=== PATIENT | male | born 1955 | race Caucasian/White ===

== ENCOUNTER 2017-12-10 01:41 | Inpatient (IN) ==
[2017-12-10] MEDS ORDERED: Ondansetron 4 MG/2 ML VIAL IVP ONE (02:36)
[2017-12-10] MEDS ORDERED: Ondansetron 4 MG/2 ML VIAL ONE (02:38)
[2017-12-10 02:48] LABS: Basophils # 0.1 K/mcL (0.0-0.2); Basophils % 0.5 %; Eosinophils # 0.1 K/mcL (0.0-0.6); Eosinophils % 0.4 %; Hematocrit 52.1 % (37.5-50.1); Hemoglobin 17.1 g/dL (12.9-16.9); Immature Granulocytes % 0.5 % (0-4); Lymphocytes # 3.7 K/mcL (0.6-4.6); Lymphocytes % 18.6 %; Mean Corpuscular HGB Conc 32.8 g/dL (31.6-35.5); Mean Corpuscular Volume 85.4 fL (83.0-100.0); Mean Platelet Volume 9.4 fL (9.4-12.4); Monocytes # 1.5 K/mcL (0.0-1.3); Monocytes % 7.7 %; Neutrophils # 14.4 K/mcL (1.6-8.9); Platelet Count 396 K/mcL (140-400); Red Cell Distribution Width 14.8 % (11.5-14.5); Segmented Neutrophils % 72.3 %
[2017-12-10] MEDS ORDERED: Nitroglycerin 1 INCH/GM PACKET TP ONE (03:02)
[2017-12-10] MEDS ORDERED: Aspirin 325 MG TABLET PO ONE (03:03)
--- NOTE | 2017-12-10 03:03 | Emergency Department Note ---
Disposition Clinical Impression: ACS (acute coronary syndrome) Disposition: Still a Patient Referrals: Izabela Sam, HAND BOOKBINDER [Primary Care Provider] - General Adult HPI - General Chief complaint: ED Chest Pain Stated complaint: "CP/BASIL/N/V/Hx of Heart Attack" Time Seen by Provider: 12/10/17 02:19 - History of Present Illness Pain Scale: 7 - Related Data Home Medications Medication Instructions Recorded Confirmed Gabapentin [Neurontin] 300 mg PO TID 07/14/17 07/14/17 Glimepiride [Amaryl] 2 mg PO DAILY 07/14/17 07/14/17 Lisinopril [Zestril] 5 mg PO DAILY 07/14/17 07/14/17 Oxycodone HCl 15 mg PO 5XD 07/14/17 07/14/17 Sertraline [Zoloft] 100 mg PO BID 07/14/17 07/14/17 Tizanidine HCl 1 tab PO TID PRN 07/14/17 07/14/17 diazePAM [Valium] 5 mg PO BID 07/14/17 07/14/17 metFORMIN [Glucophage] 500 mg PO DAILY 07/14/17 07/14/17 Previous Rx's Medication Instructions Recorded Aspirin 81 mg PO DAILY #30 tab.chew 07/16/17 Atorvastatin [Lipitor] 40 mg PO HS #30 tablet 07/16/17 Metoprolol [Lopressor] 12.5 mg PO BID #60 tablet 07/16/17 Ticagrelor [Brilinta] 90 mg PO BID #60 tablet 07/16/17 Allergies Allergy/AdvReac Type Severity Reaction Status Date / Time No Known Allergies Allergy Verified 12/10/17 02:01 Past Medical History - Past Medical History Medical history: Reports: arthritis, diabetes, hyperlipidemia, kidney stones Surgical history: Reports: cholecystectomy Psychiatric history: Reports: depression - Social History Smoking Status: Current every day smoker Smokeless Tobacco Status: No Alcohol use: Reports: none Drug use: Reports: none Course - Reevaluation(s) Reevaluation #1: Attestation note I examined this patient and my medical decision-making was reviewed with the emergency medicine resident. I agree with the documented findings, disposition and treatment plan as described except to the extent set forth below. Patient seen with nurse practitioner Carmencita Correa, Please see a copy of her note for details of the H&P, ED evaluation, management and disposition. I have independently evaluated the patient and confirmed appropriate portions of the history and physical exam. Briefly: 62-year-old male by EMS for chest pain shortness of breath. History of KS and stents in the past. Patient appears uncomfortable but nontoxic. EKG nonspecific changes patient getting aspirin chest x-ray troponin other screening labs. Admission anticipated, disposition pending. Time: 03:02 Vital Signs Temperature 97.5 F L 12/10/17 01:59 Pulse Rate 86 12/10/17 01:59 Respiratory Rate 24 12/10/17 01:59 Blood Pressure 114/76 12/10/17 01:59 O2 Sat by Pulse Oximetry 96 12/10/17 01:59 Temperature 97.5 F L 12/10/17 01:59 Pulse Rate 86 12/10/17 01:59 Respiratory Rate 24 12/10/17 01:59 Blood Pressure 114/76 12/10/17 01:59 O2 Sat by Pulse Oximetry 96 12/10/17 01:59 Oxygen Delivery Oxygen Delivery Room Air Medical Decision Making - Lab Data Result diagrams: 12/10/17 02:30 Lab Results 12/10/17 Range/Units 02:30 WBC 19.9 H (4.3-11.1) K/mcL RBC 6.10 H (4.19-5.50) M/mcL Hgb 17.1 H (12.9-16.9) g/dL Hct 52.1 H (37.5-50.1) % MCV 85.4 (83.0-100.0) fL MCH 28.0 (28.0-33.3) pg MCHC 32.8 (31.6-35.5) g/dL RDW 14.8 H (11.5-14.5) % Plt Count 396 (140-400) K/mcL MPV 9.4 (9.4-12.4) fL Immature Gran % 0.5 (0-4) % Seg Neutrophils % 72.3 % Lymphocytes % 18.6 % Monocytes % 7.7 % Eosinophils % 0.4 % Basophils % 0.5 % Neutrophils # 14.4 H (1.6-8.9) K/mcL Lymphocytes # 3.7 (0.6-4.6) K/mcL Monocytes # 1.5 H (0.0-1.3) K/mcL Eosinophils # 0.1 (0.0-0.6) K/mcL Basophils # 0.1 (0.0-0.2) K/mcL
[2017-12-10 03:14] LABS: BUN/Creatinine Ratio 14 (6-26); Blood Urea Nitrogen 15 mg/dL (8-23); Calcium 10.1 mg/dL (8.6-10.3); Carbon Dioxide 23 mEq/L (23-29); Chloride 101 mEq/L (98-107); Glucose 129 mg/dL (70-105); Osmolality,Calculated 281 (280-300); Potassium 3.9 mEq/L (3.5-5.1); Sodium 134 mEq/L (136-145); eGFR For African Americans > 60 (> 60); eGFR For Non-African Americans > 60 (> 60)
[2017-12-10] MEDS ORDERED: Ipratropium/Albuterol Neb 3 ML IH ONE (03:19)
--- NOTE | 2017-12-10 03:19 | Emergency Department Note ---
Disposition Clinical Impression: ACS (acute coronary syndrome) Disposition: Admitted As Inpatient Condition: Undetermined Referrals: Izabela Sam FREEZER PERSON [Primary Care Provider] - Forms: ED Satisfaction Letter Chest Pain HPI - General Chief Complaint: ED Chest Pain Stated Complaint: "CP/BASIL/N/V/Hx of Heart Attack" Time Seen by Provider: 12/10/17 02:19 Source: patient Mode of arrival: EMS Limitations: no limitations Vital Signs Reviewed: Yes Nursing Notes Reviewed: Yes - History of Present Illness HPI Narrative: 62-year-old male with a history of cardiac stents, hypertension, diabetes, depression presents emergency department for shortness of breath and chest feeling heavy for greater than 24 hours. He states he can come sooner to seems taking care of his [id number]. This is accompanied with nausea and vomiting. He states he has been very diaphoretic off and on since this started 2. Patient was at rest when the chest pressure started, it has intermittently came and went back has been pretty steady at a 7/10 days. Patient states due to the vomiting he has been unable to take his medication today that includes Plavix and aspirin. He states he is no longer on Brilinta at all. Patient denies any other symptoms. Pt complaint: chest pain Onset (ago): day(s) Duration: intermittent, gradually worsening Onset: during rest Pain Location: substernal, left chest Severity scale (1-10): 7 Quality: heaviness Pain Radiation: none Improves with: nothing Worsens with: exertion Associated symptoms: Reports: nausea, vomiting, diaphoresis, dyspnea, other ( "Feels like my last heart attack") Treatments prior to arrival chest pain: none - Related Data Home Medications Medication Instructions Recorded Confirmed Gabapentin [Neurontin] 300 mg PO TID 07/14/17 07/14/17 Glimepiride [Amaryl] 2 mg PO DAILY 07/14/17 07/14/17 Lisinopril [Zestril] 5 mg PO DAILY 07/14/17 07/14/17 Oxycodone HCl 15 mg PO 5XD 07/14/17 07/14/17 Sertraline [Zoloft] 100 mg PO BID 07/14/17 07/14/17 Tizanidine HCl 1 tab PO TID PRN 07/14/17 07/14/17 diazePAM [Valium] 5 mg PO BID 07/14/17 07/14/17 metFORMIN [Glucophage] 500 mg PO DAILY 07/14/17 07/14/17 Previous Rx's Medication Instructions Recorded Aspirin 81 mg PO DAILY #30 tab.chew 07/16/17 Atorvastatin [Lipitor] 40 mg PO HS #30 tablet 07/16/17 Metoprolol [Lopressor] 12.5 mg PO BID #60 tablet 07/16/17 Ticagrelor [Brilinta] 90 mg PO BID #60 tablet 07/16/17 Allergies Allergy/AdvReac Type Severity Reaction Status Date / Time No Known Allergies Allergy Verified 12/10/17 02:01 All systems ED: reviewed and negative except as stated. Review of Systems: As Per HPI Chest Pain PMH - Past Medical History Medical history: Reports: arthritis, diabetes, hyperlipidemia, kidney stones Surgical history: Reports: cholecystectomy Psychiatric history: Reports: depression - Social History Smoking Status: Current every day smoker Alcohol use: Reports: none Drug use: Reports: none Physical Exam - General Limitations: no limitations General appearance: alert, in no apparent distress - Head Head exam: atraumatic, normocephalic, normal inspection - ENT ENT exam: mucous membranes moist - Neck Neck exam: Present: normal inspection, full ROM, trachea midline - Chest Chest inspection: Present: normal inspection, symmetric chest wall rise - Respiratory Respiratory exam: Present: wheezes, prolonged expiratory phase - Cardiovascular Cardiovascular exam: Present: regular rate, normal rhythm, normal heart sounds - Abdominal Exam Abdominal exam: Present: soft, Non-Tender. Absent: tenderness, distention, guarding, rebound, rigidity - Extremities Exam Extremities exam: Present: normal inspection, full ROM. Absent: tenderness, pedal edema - Expanded Lower Extremity Exam Gait: observed and normal - Back Exam Back exam: Present: normal inspection, full ROM. Absent: tenderness - Neurological Exam Neurological exam: Present: alert, oriented X3 - Psychiatric Psychiatric exam: Present: normal affect, normal mood - Skin Skin exam: Present: warm, dry, intact, normal color Course Course Narrative: Obese male, noted to be mildly hypoxic only 93% on room air. O2 applied also talks raises to 98% on 2 L. Lungs noted with wheezes throughout, speaks in full sentences but does appear mildly distressed. Heart rate regular rhythm, EKG reveals sinus rhythm occasional ventricle premature complexes, ventricular rate 91, intervals within normal limits, QTC 413 ms. No sign of ST elevation or ST depression. Labs reveal leukocytosis and 19.9, revealed patient's previous labs read show chronic leukocytosis however 19.9 is little higher than normal. Troponin 7.99. CXR negative for Pulmonary processes. Initiated heparin drip, nitroglycerin for chest pain and pressure, spoke with the cardiology Dr. Monzon who agrees with heparin drip and admission to hospitalist. Pt had already been given ASA, Plavix. He is no longer on [place] today, he did not take his daily medications due to the vomiting earlier. Duoneb for wheezing. Continue on 2L NC Plan is admission to the hospital under hospitalist services. - Reevaluation(s) Reevaluation #1: Spoke with hospitalist who is agreeable to take patient for admission. Time: 04:33 Vital Signs Temperature 97.5 F L 12/10/17 01:59 Pulse Rate 86 12/10/17 01:59 Respiratory Rate 24 12/10/17 01:59 Blood Pressure 114/76 12/10/17 01:59 O2 Sat by Pulse Oximetry 96 12/10/17 01:59 Temperature 97.5 F L 12/10/17 01:59 Pulse Rate 103 12/10/17 04:25 Respiratory Rate 20 12/10/17 04:25 Blood Pressure 144/95 12/10/17 04:25 O2 Sat by Pulse Oximetry 97 12/10/17 04:25 Oxygen Delivery Oxygen Delivery Nasal Cannula Chest Pain - Differential Diagnosis Likely: stable angina, unstable angina pectoris, chest pain. Unlikely: pneumothorax, atypical chest pain, st elevation myocardial infraction, costalchondritis - Medical Records Medical records reviewed: Yes I reviewed the patient's medical records. - Lab Data Lab results reviewed: Yes I reviewed the patient's lab results. Result diagrams: 12/10/17 02:30 12/10/17 02:30 Lab Results 12/10/17 12/10/17 12/10/17 Range/Units 02:30 02:30 02:30 WBC 19.9 H (4.3-11.1) K/mcL RBC 6.10 H (4.19-5.50) M/mcL Hgb 17.1 H (12.9-16.9) g/dL Hct 52.1 H (37.5-50.1) % MCV 85.4 (83.0-100.0) fL MCH 28.0 (28.0-33.3) pg MCHC 32.8 (31.6-35.5) g/dL RDW 14.8 H (11.5-14.5) % Plt Count 396 (140-400) K/mcL MPV 9.4 (9.4-12.4) fL Immature Gran % 0.5 (0-4) % Seg Neutrophils % 72.3 % Lymphocytes % 18.6 % Monocytes % 7.7 % Eosinophils % 0.4 % Basophils % 0.5 % Neutrophils # 14.4 H (1.6-8.9) K/mcL Lymphocytes # 3.7 (0.6-4.6) K/mcL Monocytes # 1.5 H (0.0-1.3) K/mcL Eosinophils # 0.1 (0.0-0.6) K/mcL Basophils # 0.1 (0.0-0.2) K/mcL PT 10.9 (9.4-12.1) Seconds INR 1.0 APTT 33.0 (26.0-36.0) Seconds Sodium 134 L (136-145) mEq/L Potassium 3.9 (3.5-5.1) mEq/L Chloride 101 (98-107) mEq/L Carbon Dioxide 23 (23-29) mEq/L BUN 15 (8-23) mg/dL Creatinine 1.11 (0.70-1.30) mg/dL Est GFR ( Amer) > 60 (> 60) Est GFR (Non-Af Amer) > 60 (> 60) BUN/Creatinine Ratio 14 (6-26) Glucose 129 H (70-105) mg/dL Calculated Osmolality 281 (280-300) Calcium 10.1 (8.6-10.3) mg/dL Troponin I 7.99 H* (< 0.04) ng/mL - Radiology Data Radiology results reviewed: Yes I reviewed the patient's radiology results. Chest X-Ray 12/10/17 02:02 IMPRESSION: Negative portable chest. D/ / Caleb Palm MD / Caleb Palm MD Interpreting Provider: Caleb Palm MD - EKG Data EKG attestation: Yes I reviewed and interpreted this EKG. Heart Score - Score History: Highly Suspicious EKG: Normal Age: 45-65 Risk Factors: Equal/Greater than 3 risk factor or history of atherosclerotic disease Troponin: Greater than 3x normal limit HEART Score Total: 7
[2017-12-10 03:20] LABS: Troponin I 7.99 ng/mL (< 0.04)
[2017-12-10] MEDS ORDERED: *HR* Heparin 5,000 UNIT/ML VIAL IVP ONE (03:22)
[2017-12-10] MEDS ORDERED: *HR* Heparin 5,000 UNIT/ML VIAL IVP PRN ×2 (03:22)
[2017-12-10] MEDS ORDERED: *HR* Morphine Immed Rel 30 MG TABLET PO ONE (03:27)
[2017-12-10] MEDS ORDERED: Heparin 25,000 UNIT/500 ML D5W 25,000 UNIT/500 ML BAG IVC SCH (03:30)
[2017-12-10 03:58] LABS: Prothrombin Time 10.9 Seconds (9.4-12.1)
[2017-12-10] MEDS ORDERED: *HR* Promethazine 25 MG/ML VIAL IVP ONE (04:39)
--- NOTE | 2017-12-10 06:11 | Internal Med History&Physical ---
Date of Encounter: 12/10/17 Time of Encounter: 18:06 Internal Medicine - H&P: HPI Admitted From: Emergency Dept Plans for Post Hospital Care: Home History of present illness: Mr. Burch is a 62 year old male NSTEMI, CAD, Morbid obesity, current smoker, and DM-II. Pt states he developed chest pain, N/V yesterday. CP was rated 7/10 and radiated to his left shoulder blade. Pt states pain was associated with diaphoresis and SOB. In ED WBC 19.9, hgb 17.1, hct 52.1 PT 109, INR 1.0. Troponin 7.99. Na 134, BUN 23, 15, Cr 1.11. Glucose 129. EKG showed showed non-specific ST/T wave abnormalities. CXR negative Past Med Surg Social Fam HX - Past Medical History Medical history: arthritis, diabetes, hyperlipidemia, kidney stones, myocardial infarction Additional medical history: knee replacement Psychiatric history: depression - Past Surgical History Surgical History: cholecystectomy Additional surgical history: heart stent x1 (2018), left knee replacement - Social History Smoking Status: Current every day smoker Smokeless Tobacco Status: No Alcohol use: none Drug use: none - Family History Father Hx Family Cancer: Yes Hx Family Endocrine Disorder: Yes (kidney replacement) Sister Hx Family Endocrine Disorder: Yes (DM) Internal Medicine - H&P: Meds Gabapentin [Neurontin] 300 mg PO TID 07/14/17 [History] Glimepiride [Amaryl] 2 mg PO DAILY 07/14/17 [History] Lisinopril [Zestril] 5 mg PO DAILY 07/14/17 [History] Oxycodone HCl 15 mg PO 5XD 07/14/17 [History] Sertraline [Zoloft] 100 mg PO BID 07/14/17 [History] Tizanidine HCl 1 tab PO TID PRN 07/14/17 [History] diazePAM [Valium] 5 mg PO BID 07/14/17 [History] metFORMIN [Glucophage] 500 mg PO DAILY 07/14/17 [History] Aspirin 81 mg PO DAILY #30 tab.chew 07/16/17 [Rx] Atorvastatin [Lipitor] 40 mg PO HS #30 tablet 07/16/17 [Rx] Metoprolol [Lopressor] 12.5 mg PO BID #60 tablet 07/16/17 [Rx] Ticagrelor [Brilinta] 90 mg PO BID #60 tablet 07/16/17 [Rx] 3 Allergy/AdvReac Type Severity Reaction Status Date / Time No Known Allergies Allergy Verified 12/10/17 02:01 All Systems PM: A 10-system review of systems was performed and is negative for pertinent findings except as documented above in the HPI. - Constitutional Vitals: Temp Pulse Resp BP Pulse Ox 97.8 F 99 18 144/95 97 12/10/17 05:20 12/10/17 05:20 12/10/17 05:20 12/10/17 05:20 12/10/17 05:28 General appearance: Present: A&O X 3, morbidly obese, no acute distress - Head Head exam: Present: atraumatic, normocephalic - Eye Eye exam: Present: PERRL, conjuntiva pink, sclera anicteric Pupils: Present: PERRL - Neck Neck exam general surgery: Present: supple, trachea midline. Absent: lymphadenopathy - Respiratory Respiratory exam: Present: decreased breath sounds, CTAB. Absent: accessory muscle use, rales, rhonchi, wheezes - Cardiovascular Cardiovascular exam: Present: RRR, +S1, +S2. Absent: diastolic murmur, gallop, rubs, systolic murmur - GI/Abdominal GI/Abdominal exam: Present: normal bowel sounds, soft, no peritoneal signs. Absent: distended, tenderness - Extremities Exam Extremities exam: Present: pedal edema, warm, radial pulses palpable and symmetrical. Absent: calf tenderness, cyanotic - Neurological Exam Neurological exam: Present: CN II-XII intact, oriented X3, no focal deficits. Absent: pronater drift, facial droop, speech deficit - Skin Skin exam: Present: dry, intact Internal Med - H&P Results - Labs CBC & Chem 7: 12/10/17 02:30 12/10/17 02:30 - Assessment and plan (1) NSTEMI (non-ST elevated myocardial infarction) Current Visit: No Status: Acute Assessment and plan: Troponin 7.99. Will consul cardiology to see. Started on heparin in ED and will continue for now. Will monitor on tele. Will Resume ASA and Plavix. 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 Will Resume Metoprolol 12.5 mg BID. Consulting cardiology and called to Dr. Monzon. (2) Vomiting and diarrhea Current Visit: No Status: Acute Assessment and plan: Zofran prn (3) Diabetes mellitus type 2 in obese Current Visit: No Status: Acute Assessment and plan: Will keep NPO for till pt evaluated by cardiology. Will place on Q 6 hour glucose monitoring. (4) Leukocytosis Current Visit: Yes Status: Acute Assessment and plan: Neutrophil 14.4, afebrile. Pt does reprts cough with white to yllow sputum. Denies urinary urgency or dysuria but does report urinary frequency. Will check urinary analysis with reflex to culture. Will check CBC in am. CXR neg. Will check blood cultures. Will check procalcitonin level. Qualifiers: Qualified Code(s): D72.829 - Elevated white blood cell count, unspecified - Time Spent With Patient Total time spent is greater than 50% in coordination of care (as documented) at patient's floor/unit and/or counseling patient: 25 - 35 minutes
[2017-12-10] MEDS ORDERED: Acetaminophen 325 MG TABLET PO PRN (06:26)
[2017-12-10] MEDS ORDERED: Nitroglycerin 0.4 MG TAB.SUBL SL PRN (06:26)
[2017-12-10] MEDS ORDERED: Ondansetron 4 MG/2 ML VIAL IVP PRN (06:26)
[2017-12-10] MEDS ORDERED: Naloxone 0.4 MG/ML INJ IVP PRN (06:26)
[2017-12-10] MEDS ORDERED: Dextrose Gel 15 GM/37.5 ML TUBE PO PRN ×2 (06:30)
[2017-12-10] MEDS ORDERED: D5% in Water 1,000 ML IVC PRN (06:30)
[2017-12-10] MEDS ORDERED: *HR* Dextrose 50 % in Water (Syg) 50 ML SYRINGE IVP PRN (06:30)
[2017-12-10 07:33] LABS: Estimated Average Glucose 163 mg/dl; Hemoglobin A1C 7.3 %
[2017-12-10] MEDS ORDERED: *HR* OxyCODONE Immed Rel 15 MG TABLET PO ONE (08:57)
[2017-12-10] MEDS: Aspirin 81 MG TAB.CHEW PO SCH (09:12)
[2017-12-10] MEDS ORDERED: Heparin 1,000 UNITS/500 mL 500 ML ONE (09:23)
[2017-12-10] MEDS ORDERED: *HR* Heparin 10,000 UNIT/10 ML VIAL ONE (09:23)
[2017-12-10] MEDS ORDERED: 0.9 % Sodium Chloride 1,000 ML ONE ×2 (09:23→09:41)
[2017-12-10] MEDS ORDERED: Nitroglycerin 1,000 MCG/10 ML VIAL IV ONE (09:24)
[2017-12-10] MEDS ORDERED: ISOVUE-370 200 ML INFUS..BTL IV ONE (09:24)
--- NOTE | 2017-12-10 09:31 | Cardiology Consult Note ---
<Benjamin Ely R - Last Filed: 12/10/17 09:24> Date of Encounter: 12/10/17 Time of Encounter: 09:24 Assessment and Plan (1) NSTEMI (non-ST elevated myocardial infarction) Current Visit: Yes Status: Acute Initial troponin 7.99. On heparin gtt. EKG SR, RBBB, left fascicular block. Similar to prior. Per HPI, chest pain started 2 days ago after mowing, radiation to left arm same as prior anginal equivalent. Chest pain currently 02/04. LHC 06/2017 with ADELA to mPDA. Reports compliance with DAPT--ASA and Plavix. Was switched from Brilinta to Plavix in August due to dyspnea. TTE 06/2017 EF 55%. Recheck TTE. Recommend [facility] for NSTEMI with active chest pain. R/B/A discussed. Pt agrees to proceed. LHC today. Was loaded with 300mg Plavix on presentation. Continue ASA, Plavix, BB. Historically has not tolerated statins due to myalgias but currently on med list. (2) CAD (coronary artery disease) Current Visit: Yes Status: Acute Hx of PCI to mPDA 06/2017. NSTEMI as above. ASA, Plavix, Statin, BB. Qualifiers: Coronary Disease-Associated Artery/Lesion type: [place] artery [place] vs. transplanted heart: [place] heart Associated angina: with unstable angina Qualified Code(s): I25.110 - Atherosclerotic heart disease of [place] coronary artery with unstable angina pectoris (3) Leukocytosis Current Visit: Yes Status: Acute WBC 19.9. Reports n/v after onset of CP. Denies fever or chills. Historically, has always had leukocytosis on admissions. Could be reactionary from NSTEMI. CXR negative. Management per primary team. Qualifiers: Leukocytosis type: unspecified Qualified Code(s): D72.829 - Elevated white blood cell count, unspecified Discussion w patient/family: The assessment and plan as outlined above was discussed with the patient and/or family members who expressed understanding and agreement. All questions were answered. Thank you for involving us in the care of your patient. Please call with any questions. I will discuss all the above with Dr. Danielson and make changes as necessary. History of Present Illness Consult date: 12/10/17 Consult reason: NSTEMI Chief complaint: chest pain History of present illness: Mr. Burch is a 62 year old male with PMH of CAD s/p MT and PCI 06/2017, HTN, HLD , DMII, tobacco abuse that presented to ED for onset of chest pain 2 days ago after mowing his yard. He reports he finished with the riding mower and developed midsternal chest pain described as pressure with radiation to his left shoulder with associated dyspnea, n/v. Reports symptoms feel exactly the same to prior MT in June. Reports dyspnea for months. Current chest pain . Troponin 7.99. Cardiology consulted for further recs. Pt reports compliance with DAPT (ASA and Plavix). LHC 07/14/17: Severe 1 vessel CAD. EF 65%. Successful ADELA to mPDA. TTE 07/14/17: LVEF 55%, mild LVDD. Past Med Surg Social Fam HX - Past Medical History Medical history: arthritis, coronary artery disease, diabetes, hyperlipidemia, kidney stones, myocardial infarction Additional medical history: knee replacement Psychiatric history: depression - Past Surgical History Surgical History: angioplasty/stent, cholecystectomy Additional surgical history: heart stent x1 (2018), left knee replacement - Social History Smoking Status: Current every day smoker Smokeless Tobacco Status: No Alcohol use: none Drug use: none - Family History Father Hx Family Cancer: Yes Hx Family Endocrine Disorder: Yes (kidney replacement) Sister Hx Family Endocrine Disorder: Yes (DM) Medications and Allergies Glimepiride [Amaryl] 2 mg PO DAILY 07/14/17 [History] Lisinopril [Zestril] 5 mg PO DAILY 07/14/17 [History] Oxycodone HCl 15 mg PO 5XD 07/14/17 [History] Sertraline [Zoloft] 200 mg PO DAILY 07/14/17 [History] Tizanidine HCl 1 tab PO TID PRN 07/14/17 [History] diazePAM [Valium] 5 mg PO BID 07/14/17 [History] metFORMIN [Glucophage] 500 mg PO DAILY 07/14/17 [History] Aspirin 81 mg PO DAILY #30 tab.chew 07/16/17 [Rx] Clopidogrel [Plavix] 75 mg PO DAILY 12/10/17 [History] DULoxetine [Cymbalta] 20 mg PO DAILY 12/10/17 [History] 3 Allergy/AdvReac Type Severity Reaction Status Date / Time No Known Allergies Allergy Verified 12/10/17 02:01 All Systems Review: The remainder of the systems were reviewed and are negative - Cardiovascular Cardiovascular: as per HPI, chest pain at rest, chest pain with exertion, diaphoresis, dyspnea at rest, dyspnea on exertion, radiating jaw, neck or arm pain - Respiratory Respiratory: dyspnea - Gastrointestinal Gastrointestinal: nausea Physical Examination Vital Signs, Last 4 Hours Temp Pulse Resp BP Pulse Ox 12/10/17 06:49 98.7 F 99 18 129/88 95 Vital Signs Temp Pulse Resp BP Pulse Ox 12/10/17 06:49 98.7 F 99 18 129/88 95 12/10/17 05:28 97 12/10/17 05:20 97.8 F 99 18 144/95 95 12/10/17 05:01 97.5 F L 103 20 144/95 97 12/10/17 04:25 103 20 144/95 97 12/10/17 03:43 101 20 148/94 98 12/10/17 03:36 19 97 12/10/17 03:04 97 18 130/87 97 12/10/17 01:59 97.5 F L 86 24 114/76 96 Intake and Output 12/09/17 12/10/17 12/10/17 23:59 07:59 15:59 Intake Total 0 / 0 0 / 0 Output Total 0 / 0 450 / 450 Balance 0 / 0 -450 / -450 Intake: Oral 0 / 0 0 / 0 Output: Urine 0 / 0 450 / 450 Other: Meal npo Weight 140.9 kg Blood Glucose* 171 Patient Weight 12/10/17 23:59 Weight 140.9 kg General: Conversant, Other (mild distress) HEENT: Atraumatic, Normocephaly, Mucus Membranes Moist Neck: Normal carotid pulses Cardiac: Reg Rate and Rhythm, Normal S1 and S2, No Murmur Lungs: Other (mild wheezes) Neuro: Alert and responsive, No focal deficits noted Abdomen: Soft, Non-Tender Skin: No rashes noted on visualized skin Musculoskeletal: No Chest Wall Tenderness Extremities: No Clubbing, No Cyanosis, No Edema, Normal Pulses Results 12/10/17 02:30 12/10/17 02:30 Short CBC 12/10/17 Range/Units 02:30 WBC 19.9 H (4.3-11.1) K/mcL Hgb 17.1 H (12.9-16.9) g/dL Hct 52.1 H (37.5-50.1) % Plt Count 396 (140-400) K/mcL Neutrophils # 14.4 H (1.6-8.9) K/mcL BMP 12/10/17 Range/Units 02:30 Sodium 134 L (136-145) mEq/L Potassium 3.9 (3.5-5.1) mEq/L Chloride 101 (98-107) mEq/L Carbon Dioxide 23 (23-29) mEq/L BUN 15 (8-23) mg/dL Creatinine 1.11 (0.70-1.30) mg/dL Glucose 129 H (70-105) mg/dL Calcium 10.1 (8.6-10.3) mg/dL Cardiac Enzymes 12/10/17 Range/Units 02:30 Troponin I 7.99 H* (< 0.04) ng/mL Impressions Chest X-Ray 12/10/17 02:02 IMPRESSION: Negative portable chest. D/ / Caleb Palm MD / Caleb Palm MD Interpreting Provider: Caleb Palm MD Active Medications Acetaminophen (Tylenol) 650 mg PO Q6HR PRN PRN Reason: Mild Pain/Fever Stop: 06/11/18 06:27 Aspirin (Aspirin) 81 mg PO DAILY EDGAR Stop: 06/11/18 09:01 Last Admin: 12/10/17 09:12 Dose: 81 mg Atorvastatin Calcium (Lipitor) 40 mg PO HS EDGAR Stop: 06/11/18 21:01 Dextrose/Water (Dextrose 50% (Syg)) 25 ml IVP AD PRN PRN Reason: Hypoglycemia Stop: 06/11/18 06:31 Glucagon (Glucagen) 1 mg IM ONCE PRN PRN Reason: Hypoglycemia Stop: 06/11/18 06:31 Glucose (Gluctose) 15 gm PO ONCE PRN PRN Reason: Hypoglycemia Stop: 06/11/18 06:31 Glucose (Gluctose) 30 gm PO ONCE PRN PRN Reason: Hypoglycemia Stop: 06/11/18 06:31 Heparin Sodium (Porcine) (Heparin) 4,000 unit IVP Q6HR PRN PRN Reason: SEE COMMENTS Stop: 06/11/18 03:23 Heparin Sodium (Porcine) (Heparin) 2,000 unit IVP Q6H PRN PRN Reason: SEE COMMENTS Stop: 06/11/18 03:23 Heparin Sodium/Dextrose (Heparin 25,000 Unit/500 Ml D5w) 25,000 unit in 500 mls @ 19.726 mls/hr IVC .Q24H EDGAR; 7.2 UNIT/KG/HR PRN Reason: Protocol Stop: 06/11/18 03:31 Last Admin: 12/10/17 03:36 Dose: 7.2 unit/kg/hr, 19.726 mls/hr Dextrose (Dextrose 5%) 1,000 mls @ 100 mls/hr IVC .Q10H PRN PRN Reason: HYPOGLYCEMIA Stop: 06/11/18 06:31 Insulin Human Lispro (Humalog) 0 units SQ Q6HR EDGAR PRN Reason: Protocol Stop: 06/11/18 12:01 Lisinopril (Zestril) 5 mg PO DAILY EDGAR PRN Reason: Protocol Stop: 06/11/18 09:01 Last Admin: 12/10/17 09:20 Dose: Not Given Metoprolol Tartrate (Lopressor) 12.5 mg PO BID [facility] Stop: 06/11/18 09:01 Last Admin: 12/10/17 09:12 Dose: 12.5 mg Naloxone HCl (Narcan) 0.4 mg IVP Q2MIN PRN PRN Reason: SEE COMMENTS Stop: 06/11/18 06:27 Nitroglycerin (Nitroglycerin) 0.4 mg SL Q5MIN PRN PRN Reason: Chest Pain Stop: 06/11/18 06:27 Last Admin: 12/10/17 09:11 Dose: 0.4 mg Ondansetron HCl (Zofran) 4 mg IVP Q6HR PRN; Protocol PRN Reason: Nausea Stop: 06/11/18 06:27 Last Admin: 12/10/17 09:11 Dose: 4 mg Sertraline HCl (Zoloft) 100 mg PO BID [facility] Stop: 06/11/18 09:01 Last Admin: 12/10/17 09:20 Dose: Not Given - Imaging and Cardiology Echo: report reviewed Cardiac cath: report reviewed - EKG Interpretation EKG results cardiology: personally reviewed Consult Discharge Plan - Plan Referrals: Izabela Sam, [employer] [Primary Care Provider] - <Sarthak Danielson Ortiz - Last Filed: 12/10/17 13:04> Date of Encounter: 12/10/17 - Attending Attestation I have personally performed a face to face evaluation on this patient. I have reviewed and agree with the care plan. History and Exam by me shows: CC: Chest pain Pt continues to experience substernal chest pain, /10, decresases tro 3/10 with sublingual ntg, associated with mild nausea and shortness of breath, has been waxing and waning over last 6 hours. Pt reports chest pain like he experienced with his last heart attack. ROS: reviewed PHM: Reviewed PE: Pt seen and examined, agree with documentation IMP: 1. NSTEMI; continued chest pain, recommend emergent LHC, risks and benefits discussed, pt elects to proceed 2. CAD; Severe single vessel CAD, post PCI with ADELA right [employer] 06/2017 3. Tobacco abuse against medical advice Assessment and Plan Discussion w patient/family: The assessment and plan as outlined above was discussed with the patient and/or family members who expressed understanding and agreement. All questions were answered. Thank you for involving us in the care of your patient. Please call with any questions. History of Present Illness History of present illness: Mr. Burch is a 62 year old male All Systems Review: The remainder of the systems were reviewed and are negative Physical Examination Vital Signs, Last 4 Hours Pulse Resp BP Pulse Ox 12/10/17 12:00 75 16 126/91 98 Results 12/10/17 02:30 12/10/17 02:30 Lab Results 12/10/17 12/10/17 09:13 09:13 APTT 37.8 H Troponin I 8.72 H*
--- NOTE | 2017-12-10 09:41 | Internal Med Progress Note ---
Date of Encounter: 12/10/17 Time of Encounter: 09:39 - Assessment and plan (1) NSTEMI (non-ST elevated myocardial infarction) Current Visit: Yes Status: Acute Assessment and plan: Admitting troponin 7.99 With active chest pain s/p [facility] 06/2017 with stents, on DAPT at home ECHO is pending On heparin drip, continue till [facility] and cardio eval Continue ASA, Plavix, Lisinopril, Not on BB High risk diagnosis due to emergent need for invasive testing and use of heparin drip (2) CAD (coronary artery disease) Current Visit: Yes Status: Chronic Assessment and plan: See NSTEMI Qualifiers: Coronary Disease-Associated Artery/Lesion type: [place] artery [place] vs. transplanted heart: [place] heart Associated angina: with unstable angina Qualified Code(s): I25.110 - Atherosclerotic heart disease of [place] coronary artery with unstable angina pectoris (3) Leukocytosis Current Visit: Yes Status: Acute Assessment and plan: possibly as an acute reaction to NSTEMI Afebrile, no evidence of focal infection Continue to monitor Qualifiers: Leukocytosis type: unspecified Qualified Code(s): D72.829 - Elevated white blood cell count, unspecified (4) Diabetes mellitus type 2 in obese Current Visit: Yes Status: Chronic Assessment and plan: Continue sliding scale insulin FS ACHS ADA diet (5) Morbid obesity with BMI of 40.0-44.9, adult Current Visit: Yes Status: Chronic Assessment and plan: lifestyle modification - Time Spent With Patient Total time spent is greater than 50% in coordination of care (as documented) at patient's floor/unit and/or counseling patient: - Subjective Interval history: Seen and examined at the bedside He has a PMH of DM, CAD, Obesity, Tobacco abuse Admitted for NSTEMI, having active chest pain with trop of 7.99 Cardiology is following and patient is being planned for cath - Constitutional Vitals: Temp Pulse Resp BP Pulse Ox 98.7 F 99 18 129/88 95 12/10/17 06:49 12/10/17 06:49 12/10/17 06:49 12/10/17 06:49 12/10/17 06:49 General appearance: Present: A&O X 3, morbidly obese, no acute distress - Head Head exam: Present: atraumatic, normocephalic - Eye Eye exam: Present: PERRL, conjuntiva pink, sclera anicteric Pupils: Present: PERRL - Neck Neck exam general surgery: Present: supple, trachea midline. Absent: lymphadenopathy - Respiratory Respiratory exam: Present: CTAB. Absent: accessory muscle use, rales, rhonchi, wheezes - Cardiovascular Cardiovascular exam: Present: RRR, +S1, +S2. Absent: diastolic murmur, gallop, rubs, systolic murmur - GI/Abdominal GI/Abdominal exam: Present: normal bowel sounds, soft, no peritoneal signs. Absent: distended, tenderness - Extremities Exam Extremities exam: Present: warm, radial pulses palpable and symmetrical. Absent : calf tenderness, cyanotic, pedal edema - Neurological Exam Neurological exam: Present: alert, CN II-XII intact, oriented X3, no focal deficits. Absent: pronater drift, facial droop, speech deficit - Skin Skin exam: Present: dry, intact Internal Medicine: Result - Labs CBC & Chem 7: 12/10/17 02:30 12/10/17 02:30 - ABG Interpretation ABG results: PT/INR, D-dimer PT 10.9 Seconds (9.4-12.1) 12/10/17 02:30 Consult Discharge Plan - Plan Referrals: Izabela Sam, [employer] [Primary Care Provider] -
[2017-12-10] MEDS ORDERED: *HR* Midazolam HCl 2 MG/2 ML VIAL ONE ×2 (09:50→10:03)
--- NOTE | 2017-12-10 09:52 | Pre-Sedation Evaluation ---
Pre-sedation evaluation - Pre-sedation checklist Date of procedure: 12/10/17 Procedure: Heart cath Recent Vitals: Last Vital Signs Temp 98.7 F 12/10/17 06:49 Pulse 99 12/10/17 06:49 Resp 18 12/10/17 06:49 BP 129/88 12/10/17 06:49 Pulse Ox 95 12/10/17 06:49 H&P (including ROS) documented in medical record: Yes Previous reaction to sedatives/anesthetics: No Dietary Status: NPO after Midnight Airway Assessment: Patient can open mouth completely, TMJ function normal Dentition: No loose teeth or bridges Possible difficult airway: No ASA Classification *see protocol: CLASS III-Severe systemic disease Plan of Care: Pt appropriate candidate for procedure/moderate/conscious sedation , Risks/benefits of procedure/sedation discussed w/ patient/family, If not NPO; Risk of intake outweiged by necessity to perform procedure
--- NOTE | 2017-12-10 11:27 | Invasive Diagnostic Lab Proc ---
Name: Jackson Burch Date of Study: 12/10/2017 Date: 1955 Ht: 72.8in Medical Record#: [id number] Age: 62 Wt: 311.29lb Gender: Male BSA: 2.59 Order #: [id number] BMI: 41.3 Physicians Procedure Physician: Sarthak Danielson DO Referring MD: Izabela Sam CNP Referring MD: Staff Name Position Time In Lakeisha Gomez RN Monitor 09:54 AM Gayle Johnson RT (R) Scrub 09:54 AM Jacey Leone RN Packerhead Machine Operator 09:54 AM Enedina Walter RN Packerhead Machine Operator 09:54 AM Indications Indication Non-Stemi Procedures Performed Procedure L HRT ARTERY/VENTRICLE ANGIO Pre-Procedure Checklist Informed consent is complete signed and on chart. H&P is on chart. ID band is on and ID verified with patient. Patient NPO for procedure The procedure was described for the patient and questions were answered. Blood Pressure: 129/88 ECG is on chart. Rhythm: Sinus Tachycardia w/BBB Plan of Care Patient will tolerate the procedure without complications. Adequate level of comfort will be maintained. Hemodynamics will remain stable Patient will recover from procedure without complications. Respiratory function will be maintained. Cardiac rhythm will remain stable. Patient temperature will be maintained. Patient and/or family have verbalized understanding of the procedure. Patient Education Chief Complaint/Reason for Test: Cardiac Cath Developmental Category: Adult (18-64 years) Developmentally Appropriate for Age: Yes Learning Barriers: None Education Needs: Procedure Education Method: Verbal Information Taught: Cardiac Cath Educational Evaluation: Able to repeat information Intravenous Access Time IV Size Location DC'd Fluid/Drip Rate Units RN 09:51 AM Started with 20g 1 1/4" Lt Antecubital 0.9NaCl 25 ml/hr Jacey Leone RN Allergies NKDA Vital Signs Time BP (mmHg) HR (bpm) O2 Sat. RR (bpm) LOC 09:52 AM 129 / 88 99 95 % 18 5 = Fully awake and oriented or at pre-proc level 09:56 AM / % 5 = Fully awake and oriented or at pre-proc level 09:56 AM / % 4 = Oriented but drowsy 10:11 AM / % 5 = Fully awake and oriented or at pre-proc level 09:51 AM 123 / 93 103 94 % 09:56 AM 108 / 81 99 93 % 10:01 AM 123 / 88 96 93 % 10:06 AM 115 / 80 99 96 % 10:11 AM 123 / 82 80 94 % 10:16 AM 128 / 77 87 93 % 10:21 AM 127 / 75 96 93 % 10:40 AM 130 / 80 96 94 % 12 5 = Fully awake and oriented or at pre-proc level 10:45 AM 116 / 78 98 96 % 13 5 = Fully awake and oriented or at pre-proc level 10:50 AM 114 / 80 96 96 % 12 5 = Fully awake and oriented or at pre-proc level 10:55 AM 128 / 82 98 96 % 15 5 = Fully awake and oriented or at pre-proc level 11:00 AM 136 / 85 96 98 % 16 5 = Fully awake and oriented or at pre-proc level 11:05 AM 128 / 108 81 95 % 19 5 = Fully awake and oriented or at pre-proc level Procedural Medications Time Medication Dose Units Method Given By 09:56 AM Oxygen 2 L/min nasal cannula Jacey Leone RN 09:56 AM Versed 2 mg Intravenous Jacey Leone RN 10:03 AM Lidocaine 2% 10 ml Subcutaneous Sarthak Danielson DO 10:04 AM Versed 1 mg Intravenous Jacey Leone RN 10:07 AM Lidocaine 2% 5 ml Subcutaneous Sarthak Danielson DO 10:18 AM Nitroglycerin 100 mcg Intracoronary Sarthak Danielson DO ASA Classification: CLASS III- Severe systemic disease (i.e. prior AMI, diabetes with vascular complications, morbid obesity) Yarely Score Preprocedure Postprocedure Activity 2- Moves 4 extremities sustained head lift Activity 2- Moves 4 extremities sustained head lift Circulation 2- SBP +/= 20 points of pre-anesthetic level Circulation 2- SBP +/= 20 points of pre-anesthetic level Consciousness 2- Awake and alert oriented x 3 Consciousness 2- Awake and alert oriented x 3 O2 Saturation 2- Able to maintain O2 satruation of 92% on room air O2 Saturation 2- Able to maintain O2 satruation of 92% on room air Respiratory 2- Able to deep breathe and cough well Respiratory 2- Able to deep breathe and cough well Total Score 10 Total Score 10 Contrast Agent: Isovue Diagnostic Contrast: 100 ml Total Contrast: 100 ml Fluoro Dose: 814 mGy Activated Clotting Time Time Seconds to Clot 10:15 AM 90 Procedure Log Time Note Enter By 09:45 AM Pt arrived to lab support tech 2 at 09:45 scoates 09:46 AM Physician arrived 09:46 scoates 09:46 AM Horacio and salina completed scoates 09:47 AM Sign in performed according to hospital policy. scoates 09:47 AM Procedure start 09:47 scoates 09:49 AM Recorded ECG: HR=94 Condition=Condition 1 09:50 AM CathStat 09:50 AM Vitals capture started with the following parameters, Patient=Adult, Interval=5 min, Initial Erpdmmjo=256 mmHg, Deflation Rate=5 mmHg, Cuff placed on Right Arm 09:51 AM SZ=504 bpm, EPGN=376/93 mmhg, SpO2=94.0 %, Comment=ST w/BBB 09:54 AM Lakeisha Gomez RN Position: Monitor Time in: 09:54 scoates 09:54 AM Gayle Johnson RT (R) Position: Scrub Time in: 09:54 scoates 09:54 AM Jacey Leone RN Position: Packerhead Machine Operator Time in: 09:54 scoates 09:54 AM Enedina Walter RN Position: Packerhead Machine Operator Time in: 09:54 scoates 09:54 AM Patient charges- Angio tray pack, Navilyst 3mm J, Pulse Oximetry and ACIST tubing and transducer scoates 09:54 AM Case Delayed No scoates 09:56 AM HR=99 bpm, LKZK=594/81 mmhg, SpO2=93.0 %, Comment=ST alexandra/MEGHANA 09:56 AM Time: 09:56 Oxygen on at 2 L/min per nasal cannula by Jacey Leone RN scoates 09:56 AM Time: 09:56 Versed 2 mg Intravenous Given by Jacey Leone RN scoates 09:56 AM Time: 09:56 Patient comfortable and pain free: Yes scoates 09:56 AM Time: 09:56LOC: 5 = Fully awake and oriented or at pre-proc level scoates 09:56 AM Was having chest pain on the floor. Nitro sublingual given pre procedure. Nitro topical removed upon arrival to lab and heparin shut off prior to arrival scoates 09:59 AM Clinical Presentation: Non-STEMI scoates 10:01 AM HR=96 bpm, OTRB=436/88 mmhg, SpO2=93.0 %, Comment=ST w/BBB 10:02 AM ASA Class CLASS III- Severe systemic disease (i.e. prior AMI, diabetes with vascular complications, morbid obesity) scoates 10:02 AM Time out performed according to hospital policy scoates 10:04 AM Time: 10:03 10 ml Lidocaine 2% to right groin Subcutaneous Given by Sarthak Danielson, DO scoates 10:04 AM Time: 10:04 Versed 1 mg Intravenous Given by Jacey Leone RN scoates 10:06 AM HR=99 bpm, PFMR=142/80 mmhg, SpO2=96.0 %, Comment=ST w/BBB 10:06 AM Micro-Introducer Kit utilized for sheath placement scoates 10:07 AM Time: 10:07 5 ml Lidocaine 2% to right groin Subcutaneous Given by Sarthak Danielson, DO scoates 10:08 AM Access obtained by percutaneous puncture. 6Fr 10cm Terumo Independence sheath placed in right Femoral artery. [id number] scoates 10:08 AM 6Fr FL 4 catheter inserted over the wire [facility] scoates 10:09 AM LCA angiography performed in multiple views. scoates 10:10 AM Recorded Pressure: Ao, HR=89, Condition=Condition 1 (Aorta) Ao 95/61/77 10:11 AM HR=80 bpm, AXNZ=389/82 mmhg, SpO2=94.0 %, Comment= w/MEGHANA 10:11 AM Catheter removed scoates 10:11 AM PCI Status Urgent scoates 10:11 AM PCI Indication: PCI for high risk Non-STEMI or unstable angina scoates 10:11 AM 6Fr JR 4 Runway guide catheter was used to cannulate the PCI vessel successfully. reused? No scoates 10:11 AM Inflation device was opened. scoates 10:11 AM Time: 09:56 Patient comfortable and pain free: Yes scoates 10:11 AM Time: 09:56LOC: 4 = Oriented but drowsy scoates 10:13 AM Recorded Pressure: LV, HR=95, Condition=Condition 1 (Left Ventricle) LV 92/-3/3 10:13 AM Recorded Pressure: LV, Ao, HR=92, Condition=Condition 1 (Left Ventricle) LV 107/-9/7, (Aorta) Ao 106/53/80 10:13 AM Catheter selectively placed in left ventricle scoates 10:14 AM Bolus angiogram of left Ventricle complete: hand injected scoates 10:14 AM Recorded Pressure: Ao, HR=91, Condition=Condition 1 (Aorta) Ao 105/68/84 10:15 AM At 10:15 the ACT was 90 seconds. scoates 10:15 AM Recorded Pressure: Ao, HR=96, Condition=Condition 1 (Aorta) Ao 108/68/85 10:16 AM HR=87 bpm, FYPN=473/77 mmhg, SpO2=93.0 %, Comment=ST w/BBB 10:16 AM RCA angiography performed in multiple views. scoates 10:16 AM Guide catheter removed intact. scoates 10:17 AM 6Fr JL4 Runway guide catheter was used to cannulate the PCI vessel successfully. reused? No scoates 10:18 AM LCA angiography performed in multiple views. scoates 10:18 AM Time: 10:18 Nitroglycerin 100 mcg Intracoronary Given by Sarthak Danielson DO scoates 10:20 AM Recorded Pressure: Ao, HR=93, Condition=Condition 1 (Aorta) Ao 91/61/72 10:20 AM Coronary Dominance: right scoates 10:20 AM Lesion found in Mid RCA. Pre Stenosis: 30 scoates 10:21 AM HR=96 bpm, PUQH=568/75 mmhg, SpO2=93.0 %, Comment=ST w/BBB 10:21 AM Bolus angiogram of right Femoral complete: hand injected scoates 10:25 AM Catheter removed scoates 10:26 AM Procedure completed at 10:26 scoates 10:26 AM Did you address CECE flow and Dominance? Yes scoates 10:26 AM Time: 10:11LOC: 5 = Fully awake and oriented or at pre-proc level scoates 10:27 AM Time: 10:11 Patient comfortable and pain free: Yes scoates 10:27 AM Sign out completed: Radiation Dose 814.45 mGy Fluoro Time: 2.3 Isovue 370 - 200ml contrast 100 ml given by Sarthak Danielson DO. Complications: NoneCardiac Rehab Consult needed: NoConfirmed administered medications: Yes scoates 10:27 AM Isovue 370 - 200ml,1 Bottle(s) used. scoates 10:27 AM Sheath left in place to be pulled on floor/holding areaV+Pad scoates 10:27 AM Estimated Blood Loss: minimal scoates 10:27 AM Post ECG Sinus Tachycardia w/BBB scoates 10:28 AM Post Blood Pressure 127/75 scoates 10:28 AM 10:28 Post Pulses Bilateral DP & PT 2+ scoates 10:28 AM Information taught Cardiac Cath and V+ Pad scoates 10:28 AM Education needs Procedure, Plan of Care, and Safe & Effective Use of Medications scoates 10:28 AM Learning barriers :None scoates 10:28 AM Education Methods Verbal scoates 10:28 AM Education evaluation Able to repeat information scoates 10:28 AM Site status No bleeding/hematoma - Rt Groin as reported by Gayle Johnson RT (R) at 10:28 scoates 10:28 AM Opsite applied scoates 10:28 AM Report given to Nancy SAMPSON Pt taken to Holding room Room #3. 10:28 scoates 10:29 AM Plavix, Effient or Brilinta given No scoates 10:29 AM Delay to floor No scoates 10:29 AM Patient out of room: 10:29 scoates 10:29 AM Family not available scoates 10:29 AM Complications: None scoates 10:29 AM Fluoro Time: 2.3 scoates 10:29 AM Isovue 370 - 200ml contrast [address] Danielson. scoates 10:29 AM Radiation Dose 814.45 mGy scoates 10:31 AM Lesion found in Mid LAD. Pre Stenosis: 20 scoates 10:31 AM Lesion found in 1st Diagonal. Pre Stenosis: 30 scoates 10:31 AM Lesion found in Mid Circumflex. Pre Stenosis: 20 scoates 10:32 AM Mid/Distal Left Anterior Descending Coronary Artery and diagonal branches with 30% stenosis. scoates 10:32 AM Circumflex, Obtuse Marginal, Left Posterior Descending, and Left Posterolateral Coronary Arteries with 20 % stenosis. scoates 10:32 AM Right Coronary, Right Posterior Descending Arteries with Right Posterolateral and Acute Marginal branches with 30 % stenosis. scoates 10:50 AM Arterial sheath pulled using manual compression and V+ Pad for 15 minutes by Shira Acosta RN 11:05 AM 11:05 Post Pulses Bilateral DP & PT 2+ sandra 11:06 AM Site status No bleeding/hematoma - Rt Groin as reported by Shira Acosta RN at 11:12 sandra 11:06 AM Opsite applied sandra 11:15 AM Report given to Belén SAMPSON [facility] E [facility] Com[facility] Complication None Hemodynamics Pressures Site Systolic/A Wave Diastolic/V Wave Mean AO 95 61 77 LV 92 -3 3 LV 107 -9 7 AO 106 53 80 AO 105 68 84 AO 108 68 85 AO 91 61 72 Post Procedure Information Blood Pressure: 127/75 mmHg Rhythm: Sinus Tachycardia w/BBB Post procedural instructions were given Site Checks Time Location Status Staff Sheath In? Note 10:28 AM Rt Groin No bleeding/hematoma Gayle Johnson RT (R) Yes 11:12 AM Rt Groin No bleeding/hematoma Shira Acosta RN Yes 10:40 AM Rt Groin No bleeding/ No Hematoma Nancy Gonzalez RN Yes 10:45 AM Rt Groin No bleeding/ No Hematoma Nancy Gonzalez RN Yes 10:50 AM Rt Groin No bleeding/ No Hematoma Nancy Gonzalez RN Yes 11:05 AM Rt Groin No bleeding/ No Hematoma Lakeisha Gomez RN Pulses Time Site Pre-Procedure Post-Procedure Note 12/10/2017 9:51:00 AM Bilateral DP & PT 2+ 10:28:00 AM Bilateral DP & PT 2+ 11:05:00 AM Bilateral DP & PT 2+ Updated by Lakeisha Gomez RN on 12/10/2017 11:18:44 AM electronically signed on 12/10/2017 11:19:39 AM with status of Final
[2017-12-10] MEDS ORDERED: Insulin LISPRO 300 UNITS/3 ML VIAL SQ SCH ×2 (12:00→21:00)
[2017-12-10] MEDS: Isosorbide MONOnitrate (24 HR) 30 MG TAB.ER.24H PO SCH (13:22)
[2017-12-10] MEDS: 0.9 % Sodium Chloride 1,000 ML IVC SCH (13:22)
[2017-12-10] MEDS: Insulin LISPRO 300 UNITS/3 ML VIAL SQ SCH ×2 (13:25→17:41)
[2017-12-10] MEDS ORDERED: tiZANidine 4 MG TABLET PO PRN (14:57)
[2017-12-10 15:11] LABS: Bilirubin,Urine Negative (Negative); Blood,Urine Negative (Negative); Clarity,Urine Clear (Clear); Color,Urine Yellow (Yellow); Glucose,Urine (UA) Normal (Normal); Ketones,Urine Negative (Negative); Leukocyte Esterase,Urine Negative (Negative); Nitrite,Urine Negative (Negative); PH,Urine 5.5 pH Units (5.0-8.0); Protein,Urine Trace mg/dL (Neg-Trace); Specific Gravity,Urine > 1.030 (1.010-1.025); Urobilinogen,Urine Normal (Normal)
[2017-12-10] MEDS: *HR* OxyCODONE Immed Rel 15 MG TABLET PO PRN ×2 (15:11→20:39)
[2017-12-10 15:15] LABS: Bacteria,Urine None Seen per hpf (None-Few); Hyaline Casts,Urine Few per lpf (None-Few); RBC,Urine 0-3 per hpf (0-3); Squamous Epithelial Cell,Urine Many per lpf (None-Few); WBC,Urine 0-3 per hpf (0-3)
[2017-12-10] MEDS: diazePAM 5 MG TABLET PO SCH (20:39)
[2017-12-10] MEDS ORDERED: Perflutren Lipid Microsphere 1.3 ML in 0.9 % Sodium Chloride 8.7 ML IVP ONE (22:30)
[2017-12-11] MEDS: 0.9 % Sodium Chloride 1,000 ML IVC SCH (00:38)
[2017-12-11] MEDS: *HR* OxyCODONE Immed Rel 15 MG TABLET PO PRN ×2 (05:15→10:53)
[2017-12-11 05:37] LABS: Basophils # 0.1 K/mcL (0.0-0.2); Basophils % 0.6 %; Eosinophils # 0.1 K/mcL (0.0-0.6); Eosinophils % 0.6 %; Hematocrit 44.5 % (37.5-50.1); Immature Granulocytes % 0.6 % (0-4); Lymphocytes # 2.5 K/mcL (0.6-4.6); Lymphocytes % 19.9 %; Mean Corpuscular HGB Conc 31.5 g/dL (31.6-35.5); Mean Corpuscular Hemoglobin 27.2 pg (28.0-33.3); Mean Corpuscular Volume 86.6 fL (83.0-100.0); Mean Platelet Volume 9.4 fL (9.4-12.4); Monocytes # 1.1 K/mcL (0.0-1.3); Monocytes % 8.9 %; Neutrophils # 8.7 K/mcL (1.6-8.9); Platelet Count 284 K/mcL (140-400); Red Blood Count 5.14 M/mcL (4.19-5.50); Segmented Neutrophils % 69.4 %
[2017-12-11 05:56] LABS: Alanine Aminotransferase 18 Units/L (7-52); Albumin 3.4 g/dL (3.5-5.7); Albumin/Globulin Ratio 1.1 (1.1-2.2); Alkaline Phosphatase 75 Units/L (34-104); Aspartate Amino Transferase 20 Units/L (13-39); BUN/Creatinine Ratio 16 (6-26); Bilirubin,Total 0.5 mg/dL (0.3-1.0); Blood Urea Nitrogen 17 mg/dL (8-23); Calcium 8.8 mg/dL (8.6-10.3); Carbon Dioxide 21 mEq/L (23-29); Chloride 107 mEq/L (98-107); Globulin 3.2 g/dL (2.4-3.5); Glucose 151 mg/dL (70-105); Magnesium 2.1 mg/dL (1.6-2.6); Osmolality,Calculated 280 (280-300); Potassium 4.1 mEq/L (3.5-5.1); Sodium 133 mEq/L (136-145); Total Protein 6.6 g/dL (6.4-8.9); eGFR For African Americans > 60 (> 60); eGFR For Non-African Americans > 60 (> 60)
--- NOTE | 2017-12-11 08:41 | Cardiology Progress Note ---
Date of Encounter: 12/11/17 Time of Encounter: 08:39 Assessment and Plan (1) NSTEMI (non-ST elevated myocardial infarction) Current Visit: Yes Status: Acute Troponins 7.99, 8.72, 7.78. [facility] yesterday mild three vessel coronary artery disease, EF 65%. No intervention warranted. Spasm was noted during cath that resolved with nitro. Started Imdur 30mg daily to help with spasm. Would ideally be on low dose CCB/ Norvasc, but BP marginal. Pt reports feeling better this AM. Denies chest pain, dyspnea improved. Continue ASA, Plavix, Statin, BB, Imdur. Historically has not tolerated statins due to myalgias but currently on med list. TTE 06/2017 EF 55%. Repeat TTE pending. Would not expect significant troponin elevation from spasm. Primary team can evaluate for possible noncardiac causes of elevated troponin, such as PE if clinically indicated. Right femoral access site healing well. No bleeding, hematoma or ecchymosis noted. Restrictions discussed. Cardiology signing off. Reconsult PRN or for abnormal echo findings. Will coordinate outpt follow-up in 1 week. (2) CAD (coronary artery disease) Current Visit: Yes Status: Chronic Hx of PCI to mPDA 06/2017. NSTEMI as above. ASA, Plavix, Statin, BB, Imdur. Qualifiers: Coronary Disease-Associated Artery/Lesion type: [place] artery [place] vs. transplanted heart: [place] heart Associated angina: with unstable angina Qualified Code(s): I25.110 - Atherosclerotic heart disease of [place] coronary artery with unstable angina pectoris Discussion w patient/family: The assessment and plan as outlined above was discussed with the patient and/or family members who expressed understanding and agreement. All questions were answered. Thank you for involving us in the care of your patient. Please call with any questions. I will discuss all the above with Dr. Silva and make changes as necessary. Subjective Principal diagnosis: NSTEMI Interval history: Troponins 7.99, 8.72, 7.78. [facility] yesterday revealed mild three vessel coronary artery disease. EF 65%. There was coronary spasm noted, resolved with nitro during case. TTE pending. Pt reports feeling better today. He denies chest pain. Dyspnea improved. Objective Vital Signs, Last 4 Hours Temp Pulse Resp BP Pulse Ox 12/11/17 07:30 97.8 F 16 62 103/67 95 Vital Signs Temp Pulse Resp BP Pulse Ox 12/11/17 07:30 97.8 F 16 62 103/67 95 12/11/17 04:00 98.7 F 65 18 104/60 98 12/10/17 21:50 98.5 F 92 18 105/62 96 12/10/17 20:44 77 16 107/71 97 12/10/17 20:39 96 12/10/17 16:01 98.6 F 85 20 101/57 98 12/10/17 14:45 77 16 105/72 94 12/10/17 13:45 81 16 115/71 95 12/10/17 13:15 82 16 139/90 95 12/10/17 12:45 83 16 126/91 95 12/10/17 12:30 72 16 130/88 95 12/10/17 12:15 94 16 117/94 96 12/10/17 12:00 75 16 126/91 98 Intake and Output 12/10/17 12/11/17 12/11/17 23:59 07:59 15:59 Intake Total 1480 / 1480 120 / 120 Output Total 120 / 120 900 / 900 Balance 1360 / 1360 -780 / -780 Intake: IV Fluids 1000 / 1000 0.9 % Sodium Chloride 1,000 ML 1000 / 1000 @ 100 mls/hr IVC .Q10H [facility] Rx#: [id number] Oral 480 / 480 120 / 120 Output: Urine 120 / 120 900 / 900 Other: Meal Dinner Percent of Meal Consumed 100% Weight 142.7 kg Blood Glucose* 129 135 Patient Weight 12/11/17 23:59 Weight 142.7 kg General: Conversant, No Apparent Distress HEENT: Atraumatic, Normocephaly, Mucus Membranes Moist Neck: Normal carotid pulses Cardiac: Reg Rate and Rhythm, Normal S1 and S2, No Murmur Lungs: Other (mild wheezes noted) Neuro: Alert and responsive, No focal deficits noted Abdomen: Soft, Non-Tender Skin: Other (right femoral access site healing well. No bleeding, hematoma or ecchymosis noted.) Musculoskeletal: No Chest Wall Tenderness Extremities: No Clubbing, No Cyanosis, No Edema, Normal Pulses Results 12/11/17 05:01 12/11/17 05:01 Lab Results 12/10/17 12/10/17 12/10/17 09:13 09:13 16:28 WBC Hgb Hct Plt Count INR APTT 37.8 H Sodium Potassium Chloride Carbon Dioxide BUN Creatinine Glucose Calcium Magnesium Total Bilirubin AST ALT Alkaline Phosphatase Troponin I 8.72 H* 7.78 H* 12/11/17 12/11/17 12/11/17 05:01 05:01 05:01 WBC 12.6 H Hgb 14.0 D Hct 44.5 Plt Count 284 INR 1.0 APTT Sodium 133 L Potassium 4.1 Chloride 107 Carbon Dioxide 21 L BUN 17 Creatinine 1.04 Glucose 151 H Calcium 8.8 Magnesium 2.1 Total Bilirubin 0.5 AST 20 ALT 18 Alkaline Phosphatase 75 Troponin I Short CBC 12/11/17 Range/Units 05:01 WBC 12.6 H (4.3-11.1) K/mcL Hgb 14.0 D (12.9-16.9) g/dL Hct 44.5 (37.5-50.1) % Plt Count 284 (140-400) K/mcL Neutrophils # 8.7 (1.6-8.9) K/mcL BMP 12/11/17 Range/Units 05:01 Sodium 133 L (136-145) mEq/L Potassium 4.1 (3.5-5.1) mEq/L Chloride 107 (98-107) mEq/L Carbon Dioxide 21 L (23-29) mEq/L BUN 17 (8-23) mg/dL Creatinine 1.04 (0.70-1.30) mg/dL Glucose 151 H (70-105) mg/dL Calcium 8.8 (8.6-10.3) mg/dL Cardiac Enzymes 12/10/17 12/10/17 Range/Units 16:28 09:13 Troponin I 7.78 H* 8.72 H* (< 0.04) ng/mL Liver Function 12/11/17 Range/Units 05:01 Total Bilirubin 0.5 (0.3-1.0) mg/dL AST 20 (13-39) Units/L ALT 18 (7-52) Units/L Alkaline Phosphatase 75 (34-104) Units/L Albumin 3.4 L (3.5-5.7) g/dL Urine 12/10/17 Range/Units 14:49 Urine Color Yellow (Yellow) Urine Clarity Clear (Clear) Urine pH 5.5 (5.0-8.0) pH Units Ur Specific [place] > 1.030 H (1.010-1.025) Urine Protein Trace (Neg-Trace) mg/dL Urine Glucose (UA) Normal (Normal) mg/dL Active Medications Acetaminophen (Tylenol) 650 mg PO Q6HR PRN PRN Reason: Mild Pain/Fever Stop: 06/11/18 06:27 Aspirin (Aspirin) 81 mg PO DAILY [facility] Stop: 06/11/18 09:01 Last Admin: 12/10/17 09:12 Dose: 81 mg Atorvastatin Calcium (Lipitor) 40 mg PO HS EDGAR Stop: 06/11/18 21:01 Last Admin: 12/10/17 20:39 Dose: 40 mg Clopidogrel Bisulfate (Plavix) 75 mg PO DAILY [facility] Stop: 06/12/18 09:01 Dextrose/Water (Dextrose 50% (Syg)) 25 ml IVP AD PRN PRN Reason: Hypoglycemia Stop: 06/11/18 06:31 Diazepam (Valium) 5 mg PO BID EDGAR Stop: 06/11/18 21:01 Last Admin: 12/10/17 20:39 Dose: 5 mg Duloxetine HCl (Cymbalta) 20 mg PO BID EDGAR Stop: 06/11/18 21:01 Last Admin: 12/10/17 20:39 Dose: 20 mg Glucagon (Glucagen) 1 mg IM ONCE PRN PRN Reason: Hypoglycemia Stop: 06/11/18 06:31 Glucose (Gluctose) 15 gm PO ONCE PRN PRN Reason: Hypoglycemia Stop: 06/11/18 06:31 Glucose (Gluctose) 30 gm PO ONCE PRN PRN Reason: Hypoglycemia Stop: 06/11/18 06:31 Heparin Sodium (Porcine) (Heparin) 2,000 unit IVP Q6H PRN PRN Reason: SEE COMMENTS Stop: 06/11/18 03:23 Dextrose (Dextrose 5%) 1,000 mls @ 100 mls/hr IVC .Q10H PRN PRN Reason: HYPOGLYCEMIA Stop: 06/11/18 06:31 Sodium Chloride (0.9 % Sodium Chloride) 1,000 mls @ 100 mls/hr IVC .Q10H EDGAR Stop: 06/11/18 12:31 Last Admin: 12/11/17 00:38 Dose: 100 mls/hr Insulin Human Lispro (Humalog) 0 units SQ HS [facility] PRN Reason: Protocol Stop: 06/11/18 21:01 Last Admin: 12/10/17 22:10 Dose: Not Given Insulin Human Lispro (Humalog) 0 units SQ TIDAC [facility] PRN Reason: Protocol Stop: 06/11/18 12:31 Last Admin: 12/10/17 17:41 Dose: Not Given Isosorbide Mononitrate (Imdur) 30 mg PO DAILY [facility] Stop: 06/11/18 12:46 Last Admin: 12/10/17 13:22 Dose: 30 mg Lisinopril (Zestril) 5 mg PO DAILY [facility] PRN Reason: Protocol Stop: 06/11/18 09:01 Last Admin: 12/10/17 09:20 Dose: Not Given Metoprolol Tartrate (Lopressor) 12.5 mg PO BID [facility] Stop: 06/11/18 09:01 Last Admin: 12/10/17 20:39 Dose: 12.5 mg Naloxone HCl (Narcan) 0.4 mg IVP Q2MIN PRN PRN Reason: SEE COMMENTS Stop: 06/11/18 06:27 Nitroglycerin (Nitroglycerin) 0.4 mg SL Q5MIN PRN PRN Reason: Chest Pain Stop: 06/11/18 06:27 Last Admin: 12/10/17 09:11 Dose: 0.4 mg Ondansetron HCl (Zofran) 4 mg IVP Q6HR PRN; Protocol PRN Reason: Nausea Stop: 06/11/18 06:27 Last Admin: 12/10/17 09:11 Dose: 4 mg Oxycodone HCl (Roxicodone) 15 mg PO 5XD PRN; Protocol PRN Reason: Moderate to severe Stop: 06/11/18 16:01 Last Admin: 12/11/17 05:15 Dose: 15 mg Sertraline HCl (Zoloft) 100 mg PO BID [facility] Stop: 06/11/18 09:01 Last Admin: 12/10/17 20:40 Dose: 100 mg Tizanidine HCl (Zanaflex) 4 mg PO TID PRN PRN Reason: MUSCLE SPASMS Stop: 06/11/18 14:58 - Imaging and Cardiology Echo: pending Cardiac cath: report reviewed - EKG Interpretation EKG results cardiology: other (12 hr tele AVG HR 66, SR. No significant pauses or arrhythmias noted.) Consult Discharge Plan - Plan Additional Instructions: RISK FACTORS: STOP SMOKING: If you smoke, STOP. Smoking or tobacco use significantly increases your risk of heart disease because nicotine causes the arteries to narrow or constrict. It also causes fats to stick to the artery. Your chances of having a heart attack are greatly increased if you continue to smoke. For more information, call the education line for smoking cessation 6-841-JBYRICN EAT A LOW FAT/CHOLESTEROL/SODIUM DIET: This diet may help reduce your chances of having a heart attack. LIFTING: Avoid lifting anything more than 10 pounds for 5-7 days Prior to straining, laughing, sneezing and/or coughing, apply manual pressure directly over insertion site. ACTIVITY: You may walk or climb stairs as tolerated You can resume sexual activity as tolerated In general, you are encouraged to engage in a minimum of 30 minutes or more of moderate intensity physical activity, such as brisk walking, daily or at least 3 -4 times weekly BATHING Do not submerge the site into water (bath tub, hot tub, swimming pool) for 1 week. This can be a source for infection into the blood stream. You may shower after 24 hours SITE CARE: After 24 hours, you may remove the dressing and leave the site open to air. Keep the site clean and dry. Clean gently and pat dry. You can expect bruising and tenderness that gradually resolve within a week or two. Return to work as instructed per your physician Resume driving as instructed per physician Keep all scheduled follow up appointments Resume medications as instructed IMPORTANT: If prescribed a Platelet Aggregation Inhibitor such as, Plavix, Brilinta or Effient: Duration of therapy is minimum one year These medications are often used in combination with Aspirin in prevention of future heart attacks Never discontinue unless consult with your Fish Pitcher STROKE (CVA) Risk factors for a stroke are: Age, cigarette smoking, diabetes, excessive alcohol consumption, family history, high blood pressure, overweight, physical inactivity, prior stroke, heart attack, diagnosis of carotid artery stenosis or other artery disease. Warning signs: Sudden numbness or weakness of the face, arm or leg; especially on one side of the body, sudden confusion, trouble speaking or understanding, sudden trouble seeing in one or both eyes, sudden trouble walking, dizziness, loss of balance or coordination, sudden severe headache with no cause. Call 911 or go to the Emergency Room. CONGESTIVE HEART FAILURE: If you have been diagnosed with Congestive Heart Failure (CHF) and your symptoms return, make an appointment with your physician Weigh yourself daily. Notify your physician if you have a weight gain of two or more pounds in one day or five or more pounds in one week. If you experience any difficulty breathing, please call 911 BLEEDING: Although the risk of bleeding is minimal, it can happen. If you have any bleeding from the site, apply firm pressure above the puncture site for 10-15 minutes. If the bleeding does not stop, continue manual pressure and call 911 Contact your physician if: You develop a fever greater than 101 degrees Fahrenheit Your site becomes reddened or has any drainage You have an increase in pain or burning at the site or if a large knot forms at the site. If you experience chest pain, shortness of breath, dizziness, or extreme tiredness, stop the activity and rest. Please notify your physicians office if you experience any of these symptoms and they are not relieved by rest please call 911! Referrals: Izabela Sam CNP [Primary Care Provider] - 12/16/17 10:00 am
[2017-12-11] MEDS: diazePAM 5 MG TABLET PO SCH (09:02)
[2017-12-11] MEDS: Aspirin 81 MG TAB.CHEW PO SCH (09:02)
[2017-12-11] MEDS: Isosorbide MONOnitrate (24 HR) 30 MG TAB.ER.24H PO SCH (09:03)
[2017-12-11] MEDS: Insulin LISPRO 300 UNITS/3 ML VIAL SQ SCH (09:05)
--- NOTE | 2017-12-11 10:39 | Discharge Summary ---
- NOTES TO OUTPATIENT PROVIDER Notes to Outpatient Provider: Admitted for suspected NSTEMI, per cardiology spasm noted during LHC. Medications adjusted with addition of Imdur and BB. Follow up with cardiology and PCP Orders not resulted at time of discharge: Pending orders 12/10/17 06:41 Culture,Blood [BC] Routine Date of Encounter: 12/11/17 Time of Encounter: 09:00 - Discharge Diagnosis (1) NSTEMI (non-ST elevated myocardial infarction) Priority: Primary Status: Acute (2) CAD (coronary artery disease) Priority: Secondary Status: Chronic Qualifiers: Coronary Disease-Associated Artery/Lesion type: [place] artery [place] vs. transplanted heart: [place] heart Associated angina: with other forms of angina Qualified Code(s): I25.118 - Atherosclerotic heart disease of [place] coronary artery with other forms of angina pectoris (3) Leukocytosis Priority: Primary Status: Acute Qualifiers: Leukocytosis type: unspecified Qualified Code(s): D72.829 - Elevated white blood cell count, unspecified (4) Diabetes mellitus type 2 in obese Priority: Secondary Status: Chronic (5) Morbid obesity with BMI of 40.0-44.9, adult Priority: Secondary Status: Chronic Hospital course: Mr. Burch is a 62 year old male with PMH of CAD s/p MA and PCI 06/2017, HTN, HLD , DMII, tobacco abuse that presented to ED for onset of chest pain 2 days ago after mowing his yard. He reported he finished with the riding mower and developed midsternal chest pain described as pressure with radiation to his left shoulder with associated dyspnea, n/v.Associated SOB which is prolonged for sevreal months Work up on admission: Troponins 7.99, 8.72, 7.78, C 12/10 with mild three vessel coronary artery disease, EF 65%. No intervention warranted. Spasm was noted during cath that resolved with nitro. ECHO unremarkable with no new findings Patient was started on heparin drip prior to cath, this has been discontinued, he is also on ASA, Plavix. We added Lipitor, Imdur and low dose BB, tolerated in -patient He has no tachypnea or hypoxia, no suspicion for pulmonary embolism, he is AAOX3 , ambulatory with no neurologic deficits He is seen, no new complains, ambulatory there is reported hx of statin intolerance but patient received statin in- patient , discharged on same Discharged in stable clinical condition, follow up with PCp and cardiology Discharge discussed with: patient, nurse, bank consultant Time spent discussing smoking cessation with patient: 3 to 10 minutes - Time Spent with Patient Total time spent providing and/or coordinating discharge services: Greater than 30 minutes - Discharge Medications Prescriptions: Atorvastatin [Lipitor] 40 mg PO HS #30 tablet Isosorbide MONOnitrate (24 HR) [Imdur] 30 mg PO DAILY #30 tab.er.24h Lisinopril [Zestril] 2.5 mg PO DAILY #30 tablet Metoprolol [Lopressor] 12.5 mg PO BID #60 tablet Home Medications: Glimepiride [Amaryl] 2 mg PO DAILY 07/14/17 [History] Oxycodone HCl 15 mg PO 5XD 07/14/17 [History] Sertraline [Zoloft] 200 mg PO DAILY 07/14/17 [History] Tizanidine HCl 1 tab PO TID PRN 07/14/17 [History] diazePAM [Valium] 5 mg PO BID 07/14/17 [History] metFORMIN [Glucophage] 500 mg PO DAILY 07/14/17 [History] Aspirin 81 mg PO DAILY #30 tab.chew 07/16/17 [Rx] Clopidogrel [Plavix] 75 mg PO DAILY 12/10/17 [History] DULoxetine [Cymbalta] 20 mg PO BID 12/10/17 [History] Atorvastatin [Lipitor] 40 mg PO HS #30 tablet 12/11/17 [Rx] Isosorbide MONOnitrate (24 HR) [Imdur] 30 mg PO DAILY #30 tab.er.24h 12/11/17 [ Rx] Lisinopril [Zestril] 2.5 mg PO DAILY #30 tablet 12/11/17 [Rx] Metoprolol [Lopressor] 12.5 mg PO BID #60 tablet 12/11/17 [Rx] Allergies/Adverse Reactions: 3 Allergy/AdvReac Type Severity Reaction Status Date / Time No Known Allergies Allergy Verified 12/10/17 02:01 Date of admission: 12/10/17 06:26 Primary care physician: Izabela Sam CNP Consults: 12/11/17 08:52 Consult to Cardiac Rehabilitation-Phase1 [CONS] Routine Comment: Reason for Consult: NSTEMI Call Completed: No Discharging clinician: Ayaz Khalil Anticipated date of discharge: 12/11/17 - Constitutional Vitals: Temp Pulse Resp BP Pulse Ox 97.8 F 16 62 103/67 95 12/11/17 07:30 12/11/17 07:30 12/11/17 07:30 12/11/17 07:30 12/11/17 07:30 General appearance: Present: A&O X 3, morbidly obese, no acute distress - Head Head exam: Present: atraumatic, normocephalic - Eye Eye exam: Present: PERRL, conjuntiva pink, sclera anicteric Pupils: Present: PERRL - Neck Neck exam general surgery: Present: supple, trachea midline. Absent: lymphadenopathy - Respiratory Respiratory exam: Present: CTAB. Absent: accessory muscle use, rales, rhonchi, wheezes - Cardiovascular Cardiovascular exam: Present: RRR, +S1, +S2. Absent: diastolic murmur, gallop, rubs, systolic murmur - GI/Abdominal GI/Abdominal exam: Present: normal bowel sounds, soft, no peritoneal signs. Absent: distended, tenderness - Extremities Exam Extremities exam: Present: warm, radial pulses palpable and symmetrical. Absent : calf tenderness, cyanotic, pedal edema - Neurological Exam Neurological exam: Present: alert, CN II-XII intact, oriented X3, no focal deficits. Absent: pronater drift, facial droop, speech deficit - Skin Skin exam: Present: dry, intact - Patient Status Disposition: Home, Self-Care Condition: Good Functional capacity at discharge: independent ambulation Overall status at discharge: patient is back to baseline - Discharge Instructions Instructions: Metoprolol (By mouth), Lisinopril (By mouth), Isosorbide Mononitrate (By mouth), Atorvastatin (By mouth), Myocardial Infarction (DC), Diabetes Mellitus Type 2 in Adults (DC) Follow Up With: Benjamin Ely RESEARCH KENNEL SUPERVISOR [Advanced Practice Nurse] - (Cardiology office will call with appointment within 1 week) Izabela Sam CNP [Primary Care Provider] - 12/16/17 10:00 am Additional Instructions: RISK FACTORS: STOP SMOKING: If you smoke, STOP. Smoking or tobacco use significantly increases your risk of heart disease because nicotine causes the arteries to narrow or constrict. It also causes fats to stick to the artery. Your chances of having a heart attack are greatly increased if you continue to smoke. For more information, call the education line for smoking cessation 4-364-VNFSXYG EAT A LOW FAT/CHOLESTEROL/SODIUM DIET: This diet may help reduce your chances of having a heart attack. LIFTING: Avoid lifting anything more than 10 pounds for 5-7 days Prior to straining, laughing, sneezing and/or coughing, apply manual pressure directly over insertion site. ACTIVITY: You may walk or climb stairs as tolerated You can resume sexual activity as tolerated In general, you are encouraged to engage in a minimum of 30 minutes or more of moderate intensity physical activity, such as brisk walking, daily or at least 3 -4 times weekly BATHING Do not submerge the site into water (bath tub, hot tub, swimming pool) for 1 week. This can be a source for infection into the blood stream. You may shower after 24 hours SITE CARE: After 24 hours, you may remove the dressing and leave the site open to air. Keep the site clean and dry. Clean gently and pat dry. You can expect bruising and tenderness that gradually resolve within a week or two. Return to work as instructed per your physician Resume driving as instructed per physician Keep all scheduled follow up appointments Resume medications as instructed IMPORTANT: If prescribed a Platelet Aggregation Inhibitor such as, Plavix, Brilinta or Effient: Duration of therapy is minimum one year These medications are often used in combination with Aspirin in prevention of future heart attacks Never discontinue unless consult with your Family Intervention Specialist STROKE (CVA) Risk factors for a stroke are: Age, cigarette smoking, diabetes, excessive alcohol consumption, family history, high blood pressure, overweight, physical inactivity, prior stroke, heart attack, diagnosis of carotid artery stenosis or other artery disease. Warning signs: Sudden numbness or weakness of the face, arm or leg; especially on one side of the body, sudden confusion, trouble speaking or understanding, sudden trouble seeing in one or both eyes, sudden trouble walking, dizziness, loss of balance or coordination, sudden severe headache with no cause. Call 911 or go to the Emergency Room. CONGESTIVE HEART FAILURE: If you have been diagnosed with Congestive Heart Failure (CHF) and your symptoms return, make an appointment with your physician Weigh yourself daily. Notify your physician if you have a weight gain of two or more pounds in one day or five or more pounds in one week. If you experience any difficulty breathing, please call 911 BLEEDING: Although the risk of bleeding is minimal, it can happen. If you have any bleeding from the site, apply firm pressure above the puncture site for 10-15 minutes. If the bleeding does not stop, continue manual pressure and call 911 Contact your physician if: You develop a fever greater than 101 degrees Fahrenheit Your site becomes reddened or has any drainage You have an increase in pain or burning at the site or if a large knot forms at the site. If you experience chest pain, shortness of breath, dizziness, or extreme tiredness, stop the activity and rest. Please notify your physicians office if you experience any of these symptoms and they are not relieved by rest please call 911! - Diet and Activity Activity: resume usual activities as tolerated Diet: advance to your usual diet, low fat, low cholesterol, low salt diet
[2017-12-11 11:48] VITALS: BP 119/66
--- NOTE | 2017-12-13 06:46 | Electrocardiograph Report ---
[address] [address] Test Date: 2017-12-10 Pat Name: Jackson Burch Department: 104 Room: 2NE28 Gender: M Route Inspector: HAS : [id number] Requested By: Wero Uribe Order Number: [id number] Reading MD: Vijay Parada Measurements Intervals [place] Rate: 91 P: 60 UT: 137 QRS: 267 QRSD: 146 T: 51 QT: 364 QTc: 413 Interpretive Statements SINUS RHYTHM WITH OCCASIONAL VENTRICULAR PREMATURE COMPLEXES LEFT ATRIAL ENLARGEMENT MARKED RIGHT AXIS DEVIATION RIGHT BUNDLE BRANCH BLOCK Electronically Signed On 12-13-2017 6:45:05 EDT by Vijay Parada
== END 2017-12-11 14:14 | disposition home or self-care (01) | DRG 281 ==
LOC: 2NENU 01:41 → EMEROO 01:41 → 2NENU 05:12 → SUATTDRO 06:26
PROVIDERS: ADMIT Internal Medicine; ATTEND Internal Medicine

== ENCOUNTER 2018-01-08 09:28 | Inpatient (IN) ==
[2018-01-08] MEDS ORDERED: Aspirin 81 MG TAB.CHEW PO ONE (09:35)
[2018-01-08] MEDS ORDERED: Ondansetron 4 MG/2 ML VIAL IVP ONE ×2 (09:38→12:16)
[2018-01-08] MEDS: 0.9 % Sodium Chloride 1,000 ML IVC SCH ×2 (10:05→21:56)
[2018-01-08] MEDS: Nitroglycerin 0.4 MG TAB.SUBL SL ONE ×3 (10:06→10:28)
[2018-01-08 10:08] LABS: Basophils # 0.1 K/mcL (0.0-0.2); Basophils % 0.3 %; Eosinophils % 0.1 %; Hematocrit 49.5 % (37.5-50.1); Hemoglobin 16.7 g/dL (12.9-16.9); Immature Granulocytes % 0.5 % (0-4); Lymphocytes # 2.4 K/mcL (0.6-4.6); Lymphocytes % 13.4 %; Mean Corpuscular HGB Conc 33.7 g/dL (31.6-35.5); Mean Corpuscular Hemoglobin 28.2 pg (28.0-33.3); Mean Corpuscular Volume 83.5 fL (83.0-100.0); Mean Platelet Volume 9.4 fL (9.4-12.4); Monocytes # 1.3 K/mcL (0.0-1.3); Monocytes % 7.3 %; Neutrophils # 14.2 K/mcL (1.6-8.9); Platelet Count 341 K/mcL (140-400); Red Blood Count 5.93 M/mcL (4.19-5.50); Red Cell Distribution Width 14.6 % (11.5-14.5); Segmented Neutrophils % 78.4 %
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
[2018-01-08 10:15] LABS: INR 1.1; Prothrombin Time 12.3 Seconds (9.4-12.1)
[2018-01-08 10:18] LABS: Activated Partial Thrombo Time 31.4 Seconds (26.0-36.0)
[2018-01-08 10:30] LABS: Blood Urea Nitrogen 16 mg/dL (8-23); Calcium 9.9 mg/dL (8.6-10.3); Carbon Dioxide 20 mEq/L (23-29); Chloride 100 mEq/L (98-107); Glucose 164 mg/dL (70-105); Osmolality,Calculated 277 (280-300); Potassium 3.4 mEq/L (3.5-5.1); Sodium 131 mEq/L (136-145)
[2018-01-08 10:38] LABS: Troponin I 8.09 ng/mL (< 0.04)
[2018-01-08] MEDS ORDERED: *HR* Ticagrelor 90 MG TABLET PO ONE (10:38)
--- NOTE | 2018-01-08 11:12 | Emergency Department Note ---
Disposition Clinical Impression: Chest pain, NSTEMI (non-ST elevated myocardial infarction) Disposition: Admitted As Inpatient Condition: Fair Referrals: Izabela Sam B[employer]K T[employer] DRIVER [Primary Care Provider] - Forms: ED Satisfaction Letter Time of Disposition: 11:48 General Adult HPI - General Chief complaint: ED Chest Pain Stated complaint: chest pain/sob/NV Time Seen by Provider: 01/08/18 09:34 Source: patient, family Limitations: no limitations - History of Present Illness Pain Scale: 8 - Related Data Home Medications Medication Instructions Recorded Confirmed Glimepiride [Amaryl] 2 mg PO DAILY 07/14/17 01/08/18 Oxycodone HCl 15 mg PO 5XD 07/14/17 01/08/18 Sertraline [Zoloft] 200 mg PO DAILY 07/14/17 01/08/18 Tizanidine HCl 1 tab PO TID PRN 07/14/17 01/08/18 diazePAM [Valium] 5 mg PO BID 07/14/17 01/08/18 Clopidogrel [Plavix] 75 mg PO DAILY 12/10/17 01/08/18 DULoxetine [Cymbalta] 20 mg PO BID 12/10/17 01/08/18 Albuterol Sulfate [Albuterol 2 puff IH Q6H PRN 01/08/18 01/08/18 Inhaler] Isosorbide MONOnitrate (24 HR) 60 mg PO DAILY 01/08/18 01/08/18 [Imdur] Metformin HCl [Metformin HCl] 1,000 mg PO DAILY 01/08/18 01/08/18 Tiotropium [place] [Spiriva 2 puff IH DAILY 01/08/18 01/08/18 Respimat] Previous Rx's Medication Instructions Recorded Aspirin 81 mg PO DAILY #30 tab.chew 07/16/17 Lisinopril [Zestril] 2.5 mg PO DAILY #30 tablet 12/11/17 Metoprolol [Lopressor] 12.5 mg PO BID #60 tablet 12/11/17 Allergies Allergy/AdvReac Type Severity Reaction Status Date / Time No Known Allergies Allergy Verified 01/08/18 10:56 Constitutional: Reports: weakness Cardiovascular: Reports: chest pain, dyspnea on exertion Respiratory: Reports: dyspnea, wheezes Gastrointestinal: Reports: abdominal pain, nausea, vomiting. Denies: hematemesis, hematochezia Neurological: Reports: weakness Past Medical History - Past Medical History Medical history: Reports: arthritis, coronary artery disease, diabetes, hyperlipidemia, kidney stones, myocardial infarction Surgical history: Reports: angioplasty/stent, cholecystectomy Psychiatric history: Reports: depression - Social History Smoking Status: Current every day smoker Smokeless Tobacco Status: No Alcohol use: Reports: none Drug use: Reports: none Physical Exam - General Limitations: no limitations General appearance: alert, in no apparent distress Course Vital Signs Temperature 97.5 F L 01/08/18 09:29 Pulse Rate 74 01/08/18 09:29 Respiratory Rate 24 01/08/18 09:29 Blood Pressure 146/85 01/08/18 09:29 O2 Sat by Pulse Oximetry 96 01/08/18 09:29 Temperature 97.5 F L 01/08/18 09:36 Pulse Rate 77 01/08/18 10:16 Respiratory Rate 18 01/08/18 10:16 Blood Pressure 140/83 01/08/18 10:16 O2 Sat by Pulse Oximetry 95 01/08/18 10:16 Oxygen Delivery Oxygen Delivery Room Air Medical Decision Making - Lab Data Result diagrams: 01/08/18 09:51 01/08/18 09:51 Lab Results 01/08/18 01/08/18 01/08/18 Range/Units 09:51 09:51 09:51 WBC 18.1 H (4.3-11.1) K/mcL RBC 5.93 H (4.19-5.50) M/mcL Hgb 16.7 (12.9-16.9) g/dL Hct 49.5 (37.5-50.1) % MCV 83.5 (83.0-100.0) fL MCH 28.2 (28.0-33.3) pg MCHC 33.7 (31.6-35.5) g/dL RDW 14.6 H (11.5-14.5) % Plt Count 341 (140-400) K/mcL MPV 9.4 (9.4-12.4) fL Immature Gran % 0.5 (0-4) % Seg Neutrophils % 78.4 % Lymphocytes % 13.4 % Monocytes % 7.3 % Eosinophils % 0.1 % Basophils % 0.3 % Neutrophils # 14.2 H (1.6-8.9) K/mcL Lymphocytes # 2.4 (0.6-4.6) K/mcL Monocytes # 1.3 (0.0-1.3) K/mcL Eosinophils # 0.0 (0.0-0.6) K/mcL Basophils # 0.1 (0.0-0.2) K/mcL PT 12.3 H (9.4-12.1) Seconds INR 1.1 APTT 31.4 (26.0-36.0) Seconds Sodium (136-145) mEq/L Potassium (3.5-5.1) mEq/L Chloride (98-107) mEq/L Carbon Dioxide (23-29) mEq/L BUN (8-23) mg/dL Glucose (70-105) mg/dL Calculated Osmolality (280-300) Calcium (8.6-10.3) mg/dL Troponin I (< 0.04) ng/mL B-Natriuretic Peptide 26 (Less than 100) pg/mL 01/08/18 Range/Units 09:51 WBC (4.3-11.1) K/mcL RBC (4.19-5.50) M/mcL Hgb (12.9-16.9) g/dL Hct (37.5-50.1) % MCV (83.0-100.0) fL MCH (28.0-33.3) pg MCHC (31.6-35.5) g/dL RDW (11.5-14.5) % Plt Count (140-400) K/mcL MPV (9.4-12.4) fL Immature Gran % (0-4) % Seg Neutrophils % % Lymphocytes % % Monocytes % % Eosinophils % % Basophils % % Neutrophils # (1.6-8.9) K/mcL Lymphocytes # (0.6-4.6) K/mcL Monocytes # (0.0-1.3) K/mcL Eosinophils # (0.0-0.6) K/mcL Basophils # (0.0-0.2) K/mcL PT (9.4-12.1) Seconds INR APTT (26.0-36.0) Seconds Sodium 131 L (136-145) mEq/L Potassium 3.4 L (3.5-5.1) mEq/L Chloride 100 (98-107) mEq/L Carbon Dioxide 20 L (23-29) mEq/L BUN 16 (8-23) mg/dL Glucose 164 H (70-105) mg/dL Calculated Osmolality 277 L (280-300) Calcium 9.9 (8.6-10.3) mg/dL Troponin I 8.09 H* (< 0.04) ng/mL B-Natriuretic Peptide (Less than 100) pg/mL Critical Care Time Critical Care Time: Yes Total Critical Care Time: 35 Attestation: Critical care performed: Time is exclusive of separately billable procedures. Time includes: direct patient care, patient reassessment, coordination of patient care, interpretation of data (laboratory data, radiology data, and respiratory data), review of patient's medical records, medical consultation and documentation of patient care. Procedures included in critical care time: Procedures excluded from critical care time: Attestation Statement - Attestation Attestation: I, Ori Weston DO, examined this patient [id number] and my medical decision-making was reviewed with Dr. Nikko Whitaker, Resident Physician. I agree with the documented findings, disposition and treatment plan as described except to the extent set forth below. Please see my progress notes for details. 62-year-old male presents to the emergency room with approximately 2 days with a nausea and vomiting and then started at pressure and chest tightness. He describes this is identical to when he had his previous myocardial infarction. Patient was concerned today decided come into the emergency room patient does appear to be pale and diaphoretic on presentation. He is uncomfortable and breathing heavily. He feels like he cannot get his breath. Vital signs are reviewed and are relatively unremarkable. He has no acute signs of tachycardia or hypoxia. Patient has moist mucous membranes his lungs are clear his heart is regular abdomen is soft there is no pulsatile masses or lesions. He has no rashes or trauma across the chest wall. Patient will be started on nitroglycerin and be provided aspirin. He has not been able take his medicine for the last 48 hours. He will also have fluids nausea medication given. Concern is for angina versus unstable chest pain secondary to the his recent history as well as medical intervention. Labs including CBC chemistry troponin and BMP and coagulation studies will be ordered. Disposition be determined once the full workup and treatment course are established. Initial EKG shows stable bundle-branch with no acute signs of ST segment elevation or abnormality. Patient has EKG ordered and collected in the next half hour. Patient will require admission once workup is completed. Patient otherwise stable. See detailed documentation the physical exam, medical intervention, medical decision-making and disposition in approximately 35 minutes of critical care by the patient's treatment course secondary to multidisciplinary evaluation as well as heparin and nitroglycerin being utilized. [id number] 2 conversations have been had with the on-call acid dipper . He reviewed the newly elevated troponin at 8.09. Previous one was 7.87 greater than 1 months ago. Is concerning physician would have cleared by this time. Patient will be given Plavix as well as heparin drip being started here. His pain is gone down to a 3 after 3 nitroglycerin. He is now complaining of chronic back pain. Pain in his back is identical to all the symptoms have for which he is on 15 mg of Percocet 3 times a day. The patient complaint of chest discomfort was more heaviness and tightness. There is little concern at this point for aortic aneurysm versus dissection based on the negative findings on the most recent catheterization as well as the patient's presentation had this point. Morphine will be given to help with both anginal-like presentation as well as her chronic pain. Patient is otherwise clinically stable at this point. We will continue to monitor here. Admission process to be established. The on-call hospitalist Dr. rivera has reviewed the case as well as intervention and had no other recommendations except for the patient to be placed onto [facility]. Patient will be observed here in the emergency room to make sure that the pain goes away with the morphine prior to going to the floor. If the patient does not have relief with pain medication he will be started on nitroglycerin drip. Patient is otherwise hemodynamically stable but with concerning presentation and medical history.
[2018-01-08] MEDS ORDERED: *HR* Morphine 2 MG/ML SYRINGE IVP ONE (11:14)
[2018-01-08] MEDS ORDERED: *HR* Heparin 5,000 UNIT/ML VIAL IVP PRN ×2 (11:22)
[2018-01-08] MEDS ORDERED: *HR* Heparin 5,000 UNIT/ML VIAL IVP ONE (11:22)
[2018-01-08] MEDS ORDERED: Ondansetron 4 MG/2 ML VIAL IVP PRN (11:34)
[2018-01-08] MEDS ORDERED: OXYCODONE Oral CONC 10 MG/0.5 ML ORAL.SYG SL PRN ×2 (11:34)
[2018-01-08] MEDS ORDERED: Naloxone 0.4 MG/ML INJ IVP PRN ×2 (11:34)
[2018-01-08] MEDS ORDERED: *HR* Dextrose 50 % in Water (Syg) 50 ML SYRINGE IVP PRN (11:36)
[2018-01-08] MEDS ORDERED: D5% in Water 1,000 ML IVC PRN (11:36)
[2018-01-08] MEDS ORDERED: Dextrose Gel 15 GM/37.5 ML TUBE PO PRN ×2 (11:36)
[2018-01-08 11:49] LABS: BUN/Creatinine Ratio 16 (6-26); eGFR For African Americans > 60 (> 60); eGFR For Non-African Americans > 60 (> 60)
--- NOTE | 2018-01-08 12:30 | Internal Med History&Physical ---
Date of Encounter: 01/08/18 Time of Encounter: 12:28 Internal Medicine - H&P: HPI Chief complaint: Chest pain Admitted From: Home Plans for Post Hospital Care: Home History of present illness: Mr. Burch is a 62 year old male with PMH of CAD s/p NM and PCI 06/2017, HTN, HLD , DMII, tobacco abuse that presented to ED for onset of chest pain. Chest pain had been ongoing for 2 days prior to presentation, it is associated with nausea , vomiting, generalized weakness and shortness of breath. CP is sub-sternal and non-radiating. He denies leg swelling, trauma, fever or chills, no abdominal or neurologic symptoms. He had an admission 11/2017 with similar presentation, peak trop at that admission was 8.72, cardiology was consulted and performed a heart cath 12/10/17 with mild three vessel coronary artery disease, EF 65%. No intervention warranted. Spasm was noted during cath that resolved with nitro. TTE was unremarkable, patient was discharged home at that time with Imdur This time, he continues to have chest pain after 3 rounds of NTG. He is also being given morphine for back pain At time of review, he is chest pain free Cardiology has been consulted by the ER team and recommended Plavix,and heparin , cardiology is reviewing prior [facility] reports. Patient is hemodynamically stable EKG X2 showed NSR , LAFB, RAD and RBBB, no ST segment depression or TWI Additional work up also showed Initial troponin 8.09, BNP 26, leukocytosis with left shift, coagulation panel is negative. Mild hypokalemia 3.4 on chem, A1C in 11/2017 was 7.3%, Patient continues to smoke He denies illicit drug use, reports compliance with medications He will be admitted inpatient for ACS, suspect vasospasm, cardiology is following and recommendations will be followed Past Med Surg Social Fam HX - Past Medical History Medical history: arthritis, coronary artery disease, diabetes, hyperlipidemia, kidney stones, myocardial infarction Additional medical history: knee replacement Psychiatric history: depression - Past Surgical History Surgical History: angioplasty/stent, cholecystectomy Additional surgical history: heart stent x1 (2018), left knee replacement - Social History Smoking Status: Current every day smoker Smokeless Tobacco Status: No Alcohol use: none Drug use: none - Family History Father Hx Family Cancer: Yes Hx Family Endocrine Disorder: Yes (kidney replacement) Sister Hx Family Endocrine Disorder: Yes (DM) Internal Medicine - H&P: Meds Glimepiride [Amaryl] 2 mg PO DAILY 07/14/17 [History] Oxycodone HCl 15 mg PO 5XD 07/14/17 [History] Sertraline [Zoloft] 200 mg PO DAILY 07/14/17 [History] Tizanidine HCl 1 tab PO TID PRN 07/14/17 [History] diazePAM [Valium] 5 mg PO BID 07/14/17 [History] Aspirin 81 mg PO DAILY #30 tab.chew 07/16/17 [Rx] Clopidogrel [Plavix] 75 mg PO DAILY 12/10/17 [History] DULoxetine [Cymbalta] 20 mg PO BID 12/10/17 [History] Lisinopril [Zestril] 2.5 mg PO DAILY #30 tablet 12/11/17 [Rx] Metoprolol [Lopressor] 12.5 mg PO BID #60 tablet 12/11/17 [Rx] Albuterol Sulfate [Albuterol Inhaler] 2 puff IH Q6H PRN 01/08/18 [History] Isosorbide MONOnitrate (24 HR) [Imdur] 60 mg PO DAILY 01/08/18 [History] Metformin HCl [Metformin HCl] 1,000 mg PO DAILY 01/08/18 [History] Tiotropium [place] [Spiriva Respimat] 2 puff IH DAILY 01/08/18 [History] 3 Allergy/AdvReac Type Severity Reaction Status Date / Time No Known Allergies Allergy Verified 01/08/18 10:56 All Systems PM: A 10-system review of systems was performed and is negative for pertinent findings except as documented above in the HPI. - Constitutional Constitutional: no chills, no fever(s), no night sweats - EENT Eyes: no change in vision, no discharge, no pain, no photophobia Ears: no ear discharge, no ear pain, no tinnitus Nose, mouth and throat: no dysphagia, no nasal discharge, no neck pain, no sore throat - Cardiovascular Cardiovascular ROS IM: as per HPI - Respiratory Respiratory: as per HPI - Gastrointestinal Gastrointestinal: no abdominal pain, no diarrhea, no hematemesis, no hematochezia, no melena, no nausea, no vomiting - Musculoskeletal Musculoskeletal ROS IM: back pain - Integumentary Integumentary IM: no rash, no unusual bruising - Neurological Neurological ROS: no confusion, no convulsions, no focal weakness, no numbness, no tingling, no tremor(s) - Hematologic/Lymphatic Hematologic/Lymphatic: no easy bruising - Constitutional Vitals: Temp Pulse Resp BP Pulse Ox 97.5 F L 74 18 156/92 96 01/08/18 09:36 01/08/18 12:23 01/08/18 12:23 01/08/18 12:23 01/08/18 12:23 General appearance: Present: mild distress, A&O X 3, pleasant, obese - Head Head exam: Present: atraumatic, normocephalic - Eye Eye exam: Present: PERRL, conjuntiva pink, sclera anicteric Pupils: Present: PERRL - Neck Neck exam general surgery: Present: supple, trachea midline. Absent: lymphadenopathy - Respiratory Respiratory exam: Present: CTAB. Absent: accessory muscle use, rales, rhonchi, wheezes - Cardiovascular Cardiovascular exam: Present: RRR, +S1, +S2. Absent: diastolic murmur, gallop, rubs, systolic murmur - GI/Abdominal GI/Abdominal exam: Present: normal bowel sounds, soft, no peritoneal signs. Absent: distended, tenderness - Extremities Exam Extremities exam: Present: warm, radial pulses palpable and symmetrical. Absent : calf tenderness, cyanotic, pedal edema - Neurological Exam Neurological exam: Present: alert, CN II-XII intact, oriented X3, no focal deficits. Absent: pronater drift, facial droop, speech deficit - Skin Skin exam: Present: dry, intact Internal Med - H&P Results - Labs CBC & Chem 7: 01/08/18 09:51 01/08/18 09:51 Labs: Short CBC 01/08/18 Range/Units 09:51 WBC 18.1 H (4.3-11.1) K/mcL Hgb 16.7 (12.9-16.9) g/dL Hct 49.5 (37.5-50.1) % Plt Count 341 (140-400) K/mcL Neutrophils # 14.2 H (1.6-8.9) K/mcL BMP 01/08/18 09:51 Sodium 131 L Potassium 3.4 L Chloride 100 Carbon Dioxide 20 L BUN 16 Creatinine 1.00 Glucose 164 H Calcium 9.9 Cardiac Enzymes 01/08/18 Range/Units 09:51 Troponin I 8.09 H* (< 0.04) ng/mL - Impressions ITS Impressions Chest X-Ray 01/08/18 09:35 IMPRESSION: 1. No acute abnormality. D/ / Edis Esteban MD / Edis Esteban MD Interpreting Provider: Edis Esteban MD - Assessment and plan (1) ACS (acute coronary syndrome) Current Visit: Yes Status: Acute Assessment and plan: Patient presented with chest pain EKG with RBBB, RAD, LAFB, sinus INitial trop 8.0 Loaded with plavix in ER, received ASA, NTG X3 Started on heparin drip, continue same LHC from 11/2017 noted Continue ASA, BB, ACEI, Imdur SL NTG prn May need nitro drip if chest pain is persistent Cardiology has been called and consulted by ER, will await recommendations ECHO done 12/13, will not repeat for now (2) CAD (coronary artery disease) Current Visit: Yes Status: Chronic Assessment and plan: as above Qualifiers: Coronary Disease-Associated Artery/Lesion type: [place] artery [place] vs. transplanted heart: [place] heart Associated angina: with angina and documented spasm Qualified Code(s): I25.111 - Atherosclerotic heart disease of [place] coronary artery with angina pectoris with documented spasm (3) Diabetes mellitus type 2 in obese Current Visit: Yes Status: Chronic Assessment and plan: A1C 7.3 % in 11/2017 SSI FS Q6H for now while NPO (4) Obesity (BMI 35.0-39.9 without comorbidity) Current Visit: Yes Status: Chronic Assessment and plan: lifestyle modification (5) Chronic prescription opiate use Current Visit: Yes Status: Chronic Assessment and plan: continue home meds when able to eat NPO for now SL Oxycodone 10mg for severe pain, 5mg for mild-moderate pain Continue bowel regimen (6) Tobacco abuse Current Visit: Yes Status: Chronic Assessment and plan: encourage cessation declined NRT (7) Leukocytosis Current Visit: Yes Status: Acute Assessment and plan: acute phase reactant likely due to ACS Afebrile, CXR is clear , no abdominal or urinary symptoms Continue to monitor Qualifiers: Leukocytosis type: unspecified Qualified Code(s): D72.829 - Elevated white blood cell count, unspecified - Time Spent With Patient Total time spent is greater than 50% in coordination of care (as documented) at patient's floor/unit and/or counseling patient:
[2018-01-08] MEDS: Heparin 25,000 UNIT/500 ML D5W 25,000 UNIT/500 ML BAG IVC SCH (13:41)
[2018-01-08] MEDS: Insulin LISPRO 300 UNITS/3 ML VIAL SQ SCH ×2 (14:55→18:36)
[2018-01-08] MEDS: OXYCODONE Oral CONC 10 MG/0.5 ML ORAL.SYG SL PRN ×2 (17:08→21:57)
[2018-01-08] MEDS: diazePAM 5 MG TABLET PO SCH (20:08)
[2018-01-09] MEDS: Insulin LISPRO 300 UNITS/3 ML VIAL SQ SCH ×6 (00:44→20:42)
[2018-01-09] MEDS ORDERED: *HR* Promethazine 25 MG/ML VIAL IVP ONE (00:51)
[2018-01-09 02:16] LABS: Basophils # 0.1 K/mcL (0.0-0.2); Basophils % 0.4 %; Eosinophils % 0.2 %; Hematocrit 47.7 % (37.5-50.1); Immature Granulocytes % 0.3 % (0-4); Lymphocytes # 3.4 K/mcL (0.6-4.6); Lymphocytes % 22.5 %; Mean Corpuscular HGB Conc 31.7 g/dL (31.6-35.5); Mean Corpuscular Hemoglobin 26.8 pg (28.0-33.3); Mean Corpuscular Volume 84.6 fL (83.0-100.0); Mean Platelet Volume 9.4 fL (9.4-12.4); Monocytes # 1.4 K/mcL (0.0-1.3); Neutrophils # 10.2 K/mcL (1.6-8.9); Platelet Count 289 K/mcL (140-400); Red Blood Count 5.64 M/mcL (4.19-5.50); Red Cell Distribution Width 14.6 % (11.5-14.5); Segmented Neutrophils % 67.6 %
[2018-01-09 02:21] LABS: Hemoglobin 15.1 g/dL (12.9-16.9)
[2018-01-09 02:29] LABS: BUN/Creatinine Ratio 20 (6-26); Blood Urea Nitrogen 18 mg/dL (8-23); Calcium 9.2 mg/dL (8.6-10.3); Carbon Dioxide 17 mEq/L (23-29); Chloride 104 mEq/L (98-107); Glucose 121 mg/dL (70-105); Osmolality,Calculated 279 (280-300); Potassium 3.6 mEq/L (3.5-5.1); Sodium 133 mEq/L (136-145); eGFR For African Americans > 60 (> 60); eGFR For Non-African Americans > 60 (> 60)
[2018-01-09] MEDS: OXYCODONE Oral CONC 10 MG/0.5 ML ORAL.SYG SL PRN ×5 (03:04→22:54)
[2018-01-09] MEDS: 0.9 % Sodium Chloride 1,000 ML IVC SCH (06:29)
[2018-01-09] MEDS: Aspirin 81 MG TAB.CHEW PO SCH (08:05)
[2018-01-09] MEDS: diazePAM 5 MG TABLET PO SCH ×2 (08:05→22:54)
[2018-01-09] MEDS ORDERED: Isosorbide MONOnitrate (24 HR) 30 MG TAB.ER.24H PO SCH (09:00)
[2018-01-09] MEDS: Heparin 25,000 UNIT/500 ML D5W 25,000 UNIT/500 ML BAG IVC SCH (09:53)
[2018-01-09] MEDS: Tiotropium 18 MCG inhalation IH SCH (11:35)
[2018-01-09] MEDS ORDERED: amLODIPine 5 MG TABLET PO SCH (11:45)
--- NOTE | 2018-01-09 13:25 | Cardiology Consult Note ---
Date of Encounter: 01/09/18 Time of Encounter: 13:22 Assessment and Plan (1) NSTEMI (non-ST elevated myocardial infarction) Current Visit: Yes Status: Acute Recent unremarkable LHC and ECHO after similiar NSTEMI. Limited echo for EF and start Cardiazem for LAD bridging. LHC not currently indicated as stated above. Discussion w patient/family: The assessment and plan as outlined above was discussed with the patient and/or family members who expressed understanding and agreement. All questions were answered. Thank you for involving us in the care of your patient. Please call with any questions. History of Present Illness Consult date: 01/09/18 Consult reason: NSTEMI Chief complaint: Chest Pain History of present illness: Mr. Burch is a 62 year old male with recent PCI of the distal RPDA and a presevred EF with moderate Diastolic dysfunction. Presented with NSTEMI 11/2017 and LHC reveals patent coronaries and stent. Bridging in the mid LAD was noted and due to borderline BP did not get started on CCB. Currently chest pain free and downtrending trops. Will hold decrease imdur and start cardiazem in hope to affect spasm and not BP. Will titrate as possible. LHC not indicated yet unless worseing symptoms despite meds or recurrent chest pain. Past Med Surg Social Fam HX - Past Medical History Medical history: arthritis, coronary artery disease, diabetes, hyperlipidemia, kidney stones, myocardial infarction Additional medical history: knee replacement Psychiatric history: depression - Past Surgical History Surgical History: angioplasty/stent, cholecystectomy Additional surgical history: heart stent x1 (2018), left knee replacement - Social History Smoking Status: Current every day smoker Smokeless Tobacco Status: No Alcohol use: none Drug use: none - Family History Father Hx Family Cancer: Yes Hx Family Endocrine Disorder: Yes (kidney replacement) Sister Hx Family Endocrine Disorder: Yes (DM) Medications and Allergies Glimepiride [Amaryl] 2 mg PO DAILY 07/14/17 [History] Oxycodone HCl 15 mg PO 5XD 07/14/17 [History] Sertraline [Zoloft] 200 mg PO DAILY 07/14/17 [History] Tizanidine HCl 1 tab PO TID PRN 07/14/17 [History] diazePAM [Valium] 5 mg PO BID 07/14/17 [History] Aspirin 81 mg PO DAILY #30 tab.chew 07/16/17 [Rx] Clopidogrel [Plavix] 75 mg PO DAILY 12/10/17 [History] DULoxetine [Cymbalta] 20 mg PO BID 12/10/17 [History] Lisinopril [Zestril] 2.5 mg PO DAILY #30 tablet 12/11/17 [Rx] Metoprolol [Lopressor] 12.5 mg PO BID #60 tablet 12/11/17 [Rx] Albuterol Sulfate [Albuterol Inhaler] 2 puff IH Q6H PRN 01/08/18 [History] Isosorbide MONOnitrate (24 HR) [Imdur] 60 mg PO DAILY 01/08/18 [History] Metformin HCl [Metformin HCl] 1,000 mg PO DAILY 01/08/18 [History] Tiotropium [place] [Spiriva Respimat] 2 puff IH DAILY 01/08/18 [History] 3 Allergy/AdvReac Type Severity Reaction Status Date / Time No Known Allergies Allergy Verified 01/08/18 10:56 All Systems Review: The remainder of the systems were reviewed and are negative Physical Examination Vital Signs, Last 4 Hours Temp Pulse Resp BP Pulse Ox 01/09/18 11:29 98.2 F 72 18 109/66 94 General: Conversant, No Apparent Distress HEENT: Atraumatic, Normocephaly, Mucus Membranes Moist Neck: No JVD, Normal carotid pulses Cardiac: Reg Rate and Rhythm, Normal S1 and S2, No Murmur Lungs: Normal Breath Sounds, No Wheeze, Rales, Rhonchi Neuro: Alert and responsive, No focal deficits noted Abdomen: Soft, Non-Tender Skin: No rashes noted on visualized skin Musculoskeletal: No Chest Wall Tenderness Extremities: No Clubbing, No Cyanosis, No Edema, Normal Pulses Results 01/09/18 01:50 01/09/18 01:50 Lab Results 01/08/18 01/08/18 01/09/18 15:43 21:21 01:50 WBC 15.1 H Hgb 15.1 D Hct 47.7 Plt Count 289 Sodium Potassium Chloride Carbon Dioxide BUN Creatinine Glucose Calcium Troponin I 8.42 H* 9.82 H* 01/09/18 01/09/18 01:50 06:22 WBC Hgb Hct Plt Count Sodium 133 L Potassium 3.6 Chloride 104 Carbon Dioxide 17 L BUN 18 Creatinine 0.91 Glucose 121 H Calcium 9.2 Troponin I 9.12 H* Consult Discharge Plan - Plan Referrals: Izabela Sam, PRINCIPAL CONSULTANT [Primary Care Provider] -
--- NOTE | 2018-01-09 16:13 | Internal Med Progress Note ---
Date of Encounter: 01/09/18 Time of Encounter: 10:45 - Assessment and plan (1) Chest pain Current Visit: Yes Status: Acute Assessment and plan: Presented with chest pain, noted to have elevated troponins up to 9. Started on ACS protocol with IV heparin drip, aspirin, statin, beta lul. Patient was recently discharged from our hospital after receiving left heart catheterization, showing mild 3 vessel coronary artery disease, bridging/spasm of LAD, relieved with nitroglycerin. Case discussed with cardiology, to start calcium channel lul-Cardizem; decrease home dose of Imdur and titrate these meds as necessary to obtain appropriate pain control while monitoring blood pressure. This is likely vasospastic angina, no indication for left heart catheterization. Follow-up Limited echocardiogram. Qualifiers: Chest pain type: unspecified Qualified Code(s): R07.9 - Chest pain, unspecified (2) Diabetes mellitus type 2 in obese Current Visit: Yes Status: Chronic Assessment and plan: Blood sugars noted to be well controlled. Continue Accu-Chek blood glucose monitoring with sliding scale insulin, diabetic diet. (3) CAD (coronary artery disease) Current Visit: Yes Status: Chronic Assessment and plan: Continue aspirin, nitrate and statin. Telemetry monitoring. Troponin stable around 9. Qualifiers: Coronary Disease-Associated Artery/Lesion type: [place] artery [place] vs. transplanted heart: [place] heart Associated angina: with angina and documented spasm Qualified Code(s): I25.111 - Atherosclerotic heart disease of [place] coronary artery with angina pectoris with documented spasm (4) Chronic prescription opiate use Current Visit: Yes Status: Chronic (5) Obesity (BMI 35.0-39.9 without comorbidity) Current Visit: Yes Status: Chronic (6) Tobacco abuse Current Visit: Yes Status: Chronic (7) Essential hypertension Current Visit: Yes Status: Chronic - Time Spent With Patient Total time spent is greater than 50% in coordination of care (as documented) at patient's floor/unit and/or counseling patient: - Subjective Interval history: Reports feeling better. Improved chest pain. No shortness of breath, palpitations, dizziness. Reports chronic back pain; - Constitutional Vitals: Temp Pulse Resp BP Pulse Ox 98.2 F 72 18 109/66 94 01/09/18 11:29 01/09/18 11:29 01/09/18 11:29 01/09/18 11:29 01/09/18 11:29 General appearance: Present: A&O X 3, obese, answers questions appropriately - Respiratory Respiratory exam: Present: CTAB. Absent: accessory muscle use, rales, rhonchi, wheezes - Cardiovascular Cardiovascular exam: Present: RRR, +S1, +S2. Absent: diastolic murmur, gallop, rubs, systolic murmur - GI/Abdominal GI/Abdominal exam: Present: normal bowel sounds, soft (obese), no peritoneal signs. Absent: distended, tenderness - Extremities Exam Extremities exam: Present: full ROM, warm, radial pulses palpable and symmetrical. Absent: calf tenderness, cyanotic, pedal edema - Neurological Exam Neurological exam: Present: CN II-XII intact, oriented X3, no focal deficits. Absent: pronater drift, facial droop, speech deficit Internal Medicine: Result - Labs CBC & Chem 7: 01/09/18 01:50 01/09/18 01:50 Labs: Short CBC 01/09/18 Range/Units 01:50 WBC 15.1 H (4.3-11.1) K/mcL Hgb 15.1 D (12.9-16.9) g/dL Hct 47.7 (37.5-50.1) % Plt Count 289 (140-400) K/mcL Neutrophils # 10.2 H (1.6-8.9) K/mcL BMP 01/09/18 01:50 Sodium 133 L Potassium 3.6 Chloride 104 Carbon Dioxide 17 L BUN 18 Creatinine 0.91 Glucose 121 H Calcium 9.2 Cardiac Enzymes 01/08/18 01/08/18 01/09/18 Range/Units 15:43 21:21 06:22 Troponin I 8.42 H* 9.82 H* 9.12 H* (< 0.04) ng/mL - ABG Interpretation ABG results: PT/INR, D-dimer PT 12.3 Seconds (9.4-12.1) H 01/08/18 09:51 Consult Discharge Plan - Plan Referrals: Izabela Sam, DEPENDENCY CASE MANAGER [Primary Care Provider] -
[2018-01-09] MEDS ORDERED: 0.9 % Sodium Chloride 500 ML ONE (16:19)
[2018-01-09] MEDS: tiZANidine 4 MG TABLET PO PRN (22:54)
[2018-01-10] MEDS: Heparin 25,000 UNIT/500 ML D5W 25,000 UNIT/500 ML BAG IVC SCH (00:22)
[2018-01-10] MEDS: OXYCODONE Oral CONC 10 MG/0.5 ML ORAL.SYG SL PRN ×4 (04:59→20:01)
[2018-01-10 05:57] LABS: Basophils # 0.1 K/mcL (0.0-0.2); Basophils % 0.5 %; Eosinophils # 0.1 K/mcL (0.0-0.6); Hematocrit 42.8 % (37.5-50.1); Hemoglobin 13.7 g/dL (12.9-16.9); Immature Granulocytes % 0.4 % (0-4); Lymphocytes # 3.4 K/mcL (0.6-4.6); Lymphocytes % 27.1 %; Mean Corpuscular Hemoglobin 27.6 pg (28.0-33.3); Mean Corpuscular Volume 86.1 fL (83.0-100.0); Mean Platelet Volume 9.5 fL (9.4-12.4); Monocytes # 1.1 K/mcL (0.0-1.3); Monocytes % 8.4 %; Neutrophils # 7.8 K/mcL (1.6-8.9); Platelet Count 258 K/mcL (140-400); Red Blood Count 4.97 M/mcL (4.19-5.50); Segmented Neutrophils % 62.6 %
[2018-01-10 06:19] LABS: BUN/Creatinine Ratio 16 (6-26); Blood Urea Nitrogen 17 mg/dL (8-23); Carbon Dioxide 25 mEq/L (23-29); Chloride 102 mEq/L (98-107); Glucose 120 mg/dL (70-105); Osmolality,Calculated 279 (280-300); Potassium 3.7 mEq/L (3.5-5.1); Sodium 133 mEq/L (136-145); eGFR For African Americans > 60 (> 60); eGFR For Non-African Americans > 60 (> 60)
[2018-01-10] MEDS: Insulin LISPRO 300 UNITS/3 ML VIAL SQ SCH ×4 (08:03→21:00)
[2018-01-10] MEDS: Aspirin 81 MG TAB.CHEW PO SCH (08:16)
[2018-01-10] MEDS: Isosorbide MONOnitrate (24 HR) 30 MG TAB.ER.24H PO SCH (08:16)
[2018-01-10] MEDS: diazePAM 5 MG TABLET PO SCH ×2 (08:16→22:58)
[2018-01-10] MEDS: Diltiazem CD (24hr) 120 MG CAPSULE PO SCH (10:13)
[2018-01-10] MEDS: Tiotropium 18 MCG inhalation IH SCH (11:10)
--- NOTE | 2018-01-10 11:30 | Cardiology Progress Note ---
Date of Encounter: 01/10/18 Time of Encounter: 11:00 Assessment and Plan (1) Vasospastic angina Current Visit: Yes Status: Acute Patient presented with typical chest pain symptoms, peak troponin 9.82. Recent admission last month with similar presentation and troponin elevation, underwent LHC which demonstrated mild, non-obstructive CAD--spasm observed during LHC, resolved with NTG. Patient was started on Imdur. Suspect symptoms secondary to vasospasm given recent LHC without significant obstructive CAD. Repeat Limited echo pending. No plan for repeat LHC at this time. Will start CCB today, decrease Imdur due to marginal BP. Continue asa, statin, plavix. Will stop IV heparin gtt. Encouraged patient to ambulate in hallways later today. If no recurrent symptoms overnight, may be able to d/c in AM. (2) CAD (coronary artery disease) Current Visit: Yes Status: Chronic Plan as above. A[place]LA 2017, continue uninterrupted DAPT (asa + plavix) for a minimum of 1 year. Continue statin, CCB. Qualifiers: Coronary Disease-Associated Artery/Lesion type: [place] artery [place] vs. transplanted heart: [place] heart Associated angina: with angina and documented spasm Qualified Code(s): I25.111 - Atherosclerotic heart disease of [place] coronary artery with angina pectoris with documented spasm Discussion w patient/family: The assessment and plan as outlined above was discussed with the patient and/or family members who expressed understanding and agreement. All questions were answered. Thank you for involving us in the care of your patient. Please call with any questions. The patient will be discussed and reviewed with Dr. Danielson; changes to be made accordingly. Subjective Principal diagnosis: Coronary vasospasm Interval history: Seen and examined. Reports mild episode of chest discomfort this AM, bedside RN reports this occurred during argument with . Otherwise, he denies any other/further CV symptoms. Objective Vital Signs, Last 4 Hours Resp Pulse Ox 01/10/18 11:10 17 94 General: Conversant, No Apparent Distress, Other (morbidly obese) HEENT: Atraumatic, Normocephaly, Mucus Membranes Moist Cardiac: Reg Rate and Rhythm, Normal S1 and S2 Lungs: Normal Breath Sounds Neuro: Alert and responsive Abdomen: Soft Skin: No rashes noted on visualized skin Musculoskeletal: No Chest Wall Tenderness Extremities: No Edema, Normal Pulses Results 01/10/18 05:03 01/10/18 05:03 Lab Results 01/10/18 01/10/18 05:03 05:03 WBC 12.4 H Hgb 13.7 Hct 42.8 Plt Count 258 Sodium 133 L Potassium 3.7 Chloride 102 Carbon Dioxide 25 BUN 17 Creatinine 1.09 Glucose 120 H Calcium 9.0 Active Medications Albuterol Sulfate (Albuterol Inhaler) 2 puff IH Q6H PRN PRN Reason: Shortness Of Breath Stop: 07/10/18 11:37 Aspirin (Aspirin) 81 mg PO DAILY [facility] Stop: 07/11/18 09:01 Last Admin: 01/10/18 08:16 Dose: 81 mg Clopidogrel Bisulfate (Plavix) 75 mg PO DAILY [facility] Stop: 07/11/18 09:01 Last Admin: 01/10/18 08:16 Dose: 75 mg Dextrose/Water (Dextrose 50% (Syg)) 25 ml IVP AD PRN PRN Reason: Hypoglycemia Stop: 07/10/18 11:37 Diazepam (Valium) 5 mg PO BID [facility] Stop: 07/10/18 21:01 Last Admin: 01/10/18 08:16 Dose: 5 mg Diltiazem HCl (Cardizem Cd) 120 mg PO DAILY [facility] Stop: 07/12/18 09:46 Last Admin: 01/10/18 10:13 Dose: 120 mg Duloxetine HCl (Cymbalta) 20 mg PO BID [facility] Stop: 07/10/18 21:01 Last Admin: 01/10/18 08:16 Dose: 20 mg Glucagon (Glucagen) 1 mg IM ONCE PRN PRN Reason: Hypoglycemia Stop: 07/10/18 11:37 Glucose (Gluctose) 15 gm PO ONCE PRN PRN Reason: Hypoglycemia Stop: 07/10/18 11:37 Glucose (Gluctose) 30 gm PO ONCE PRN PRN Reason: Hypoglycemia Stop: 07/10/18 11:37 Dextrose (Dextrose 5%) 1,000 mls @ 100 mls/hr IVC .Q10H PRN PRN Reason: HYPOGLYCEMIA Stop: 07/10/18 11:37 Insulin Human Lispro (Humalog) 0 units SQ ACHS [place] PRN Reason: Protocol Stop: 07/11/18 16:31 Last Admin: 01/10/18 08:03 Dose: Not Given Isosorbide Mononitrate (Imdur) 30 mg PO DAILY [facility] Stop: 07/12/18 09:01 Last Admin: 01/10/18 08:16 Dose: 30 mg Lisinopril (Zestril) 2.5 mg PO DAILY [facility] PRN Reason: Protocol Stop: 07/11/18 09:01 Last Admin: 01/10/18 08:16 Dose: 2.5 mg Metoprolol Tartrate (Lopressor) 12.5 mg PO BID [facility] Stop: 07/10/18 21:01 Last Admin: 01/10/18 08:16 Dose: 12.5 mg Naloxone HCl (Narcan) 0.4 mg IVP Q2MIN PRN PRN Reason: Opioid Reversal Stop: 07/10/18 11:35 Ondansetron HCl (Zofran) 4 mg IVP Q8HR PRN PRN Reason: Nausea And Vomiting Stop: 07/10/18 11:35 Last Admin: 01/08/18 20:08 Dose: 4 mg Oxycodone HCl (Oxycodone Oral Conc) 15 mg SL Q5H PRN; Protocol PRN Reason: Pain Stop: 07/10/18 14:59 Last Admin: 01/10/18 10:13 Dose: 15 mg Sertraline HCl (Zoloft) 200 mg PO DAILY [facility] Stop: 07/11/18 09:01 Last Admin: 01/10/18 08:16 Dose: 200 mg Tiotropium [place] (Spiriva) 18 mcg IH DAILYR [facility] Stop: 07/11/18 10:01 Last Admin: 01/10/18 11:10 Dose: 18 mcg Tizanidine HCl (Zanaflex) 4 mg PO TID PRN PRN Reason: MUSCLE SPASMS Stop: 07/10/18 11:37 Last Admin: 01/09/18 22:54 Dose: 4 mg - Imaging and Cardiology Echo: pending, report reviewed Cardiac cath: report reviewed Other Results: 12 hour tele: avg HR=61 SR. No events noted. - EKG Interpretation EKG results cardiology: personally reviewed Consult Discharge Plan - Plan Referrals: Izabela Sam PASTEURIZING SUPERVISOR [Primary Care Provider] - 01/20/18 3:00 pm
--- NOTE | 2018-01-10 14:01 | Internal Med Progress Note ---
Date of Encounter: 01/10/18 Time of Encounter: 09:45 - Assessment and plan (1) Chest pain Current Visit: Yes Status: Acute Assessment and plan: Presented with chest pain, noted to have elevated troponins up to 9. Patient was recently discharged from our hospital after receiving left heart catheterization, showing mild 3 vessel coronary artery disease, bridging/spasm of LAD, relieved with nitroglycerin. This is likely vasospastic angina, no indication for left heart catheterization. Cardiology f/up noted; discontinue IV Heparin drip, started on Cardizem CD 120mg along with low dose of Imdur; Follow-up Limited echocardiogram. Qualifiers: Chest pain type: unspecified Qualified Code(s): R07.9 - Chest pain, unspecified (2) Diabetes mellitus type 2 in obese Current Visit: Yes Status: Chronic Assessment and plan: Blood sugars noted to be well controlled. Continue Accu-Chek blood glucose monitoring with sliding scale insulin, diabetic diet. (3) CAD (coronary artery disease) Current Visit: Yes Status: Chronic Assessment and plan: Continue aspirin, nitrate and statin. Telemetry monitoring. Troponin trending down; Qualifiers: Coronary Disease-Associated Artery/Lesion type: [place] artery [place] vs. transplanted heart: [place] heart Associated angina: with angina and documented spasm Qualified Code(s): I25.111 - Atherosclerotic heart disease of [place] coronary artery with angina pectoris with documented spasm (4) Chronic prescription opiate use Current Visit: Yes Status: Chronic (5) Obesity (BMI 35.0-39.9 without comorbidity) Current Visit: Yes Status: Chronic (6) Tobacco abuse Current Visit: Yes Status: Chronic Assessment and plan: encourage cessation declined NRT (7) Essential hypertension Current Visit: Yes Status: Chronic Assessment and plan: BP low normal; continue current regimen and monitor BP closely; - Time Spent With Patient Total time spent is greater than 50% in coordination of care (as documented) at patient's floor/unit and/or counseling patient: - Subjective Interval history: Improved chest pain; no dyspnea, nausea, vomiting; continues to have back pain, which is chronic; no fever/chills; - Constitutional Vitals: Temp Pulse Resp BP Pulse Ox 97.8 F 62 18 101/66 96 01/10/18 11:30 01/10/18 11:30 01/10/18 11:30 01/10/18 11:30 01/10/18 11:30 General appearance: Present: A&O X 3, obese, answers questions appropriately - Respiratory Respiratory exam: Present: CTAB. Absent: accessory muscle use, rales, rhonchi, wheezes - Cardiovascular Cardiovascular exam: Present: RRR, +S1, +S2. Absent: diastolic murmur, gallop, rubs, systolic murmur - GI/Abdominal GI/Abdominal exam: Present: normal bowel sounds, soft, no peritoneal signs. Absent: distended, tenderness Internal Medicine: Result - Labs CBC & Chem 7: 01/10/18 05:03 01/10/18 05:03 Labs: Short CBC 01/10/18 Range/Units 05:03 WBC 12.4 H (4.3-11.1) K/mcL Hgb 13.7 (12.9-16.9) g/dL Hct 42.8 (37.5-50.1) % Plt Count 258 (140-400) K/mcL Neutrophils # 7.8 (1.6-8.9) K/mcL BMP 01/10/18 05:03 Sodium 133 L Potassium 3.7 Chloride 102 Carbon Dioxide 25 BUN 17 Creatinine 1.09 Glucose 120 H Calcium 9.0 - ABG Interpretation ABG results: PT/INR, D-dimer PT 12.3 Seconds (9.4-12.1) H 01/08/18 09:51 Consult Discharge Plan - Plan Referrals: Izabela Sam CNP [Primary Care Provider] - 01/20/18 3:00 pm
--- NOTE | 2018-01-10 18:13 | Electrocardiograph Report ---
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
--- NOTE | 2018-01-10 18:14 | Electrocardiograph Report ---
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
[2018-01-10] MEDS: tiZANidine 4 MG TABLET PO PRN (23:02)
[2018-01-11] MEDS: OXYCODONE Oral CONC 10 MG/0.5 ML ORAL.SYG SL PRN ×2 (01:12→06:26)
[2018-01-11 07:32] VITALS: BP 105/73
[2018-01-11] MEDS: Tiotropium 18 MCG inhalation IH SCH (07:43)
[2018-01-11] MEDS: Diltiazem CD (24hr) 120 MG CAPSULE PO SCH (08:30)
[2018-01-11] MEDS: Insulin LISPRO 300 UNITS/3 ML VIAL SQ SCH (08:30)
[2018-01-11] MEDS: Isosorbide MONOnitrate (24 HR) 30 MG TAB.ER.24H PO SCH (08:30)
[2018-01-11] MEDS: Aspirin 81 MG TAB.CHEW PO SCH (08:31)
[2018-01-11] MEDS: diazePAM 5 MG TABLET PO SCH (08:31)
[2018-01-11 08:58] LABS: Basophils # 0.1 K/mcL (0.0-0.2); Basophils % 0.6 %; Eosinophils # 0.2 K/mcL (0.0-0.6); Eosinophils % 1.6 %; Hematocrit 46.3 % (37.5-50.1); Hemoglobin 15.1 g/dL (12.9-16.9); Immature Granulocytes % 0.4 % (0-4); Lymphocytes # 2.3 K/mcL (0.6-4.6); Lymphocytes % 22.5 %; Mean Corpuscular HGB Conc 32.6 g/dL (31.6-35.5); Mean Corpuscular Hemoglobin 28.1 pg (28.0-33.3); Mean Corpuscular Volume 86.1 fL (83.0-100.0); Mean Platelet Volume 9.8 fL (9.4-12.4); Monocytes % 10.1 %; Neutrophils # 6.7 K/mcL (1.6-8.9); Platelet Count 253 K/mcL (140-400); Red Blood Count 5.38 M/mcL (4.19-5.50); Red Cell Distribution Width 14.8 % (11.5-14.5); Segmented Neutrophils % 64.8 %
[2018-01-11 09:18] LABS: BUN/Creatinine Ratio 16 (6-26); Blood Urea Nitrogen 15 mg/dL (8-23); Calcium 9.2 mg/dL (8.6-10.3); Carbon Dioxide 22 mEq/L (23-29); Chloride 103 mEq/L (98-107); Glucose 146 mg/dL (70-105); Osmolality,Calculated 287 (280-300); Potassium 4.6 mEq/L (3.5-5.1); Sodium 137 mEq/L (136-145); eGFR For African Americans > 60 (> 60); eGFR For Non-African Americans > 60 (> 60)
--- NOTE | 2018-01-11 10:17 | Discharge Summary ---
- NOTES TO OUTPATIENT PROVIDER Notes to Outpatient Provider: Please monitor BP. There are changes to medication with BP in 100s systolic. Date of Encounter: 01/11/18 Time of Encounter: 09:30 - Discharge Diagnosis (1) Chest pain Priority: Primary Status: Acute Assessment and Plan: Chest pain with elevated troponin on presentation. Hx recent discharged from [place] with LHC: mild, non-obstructive CAD with observed spasm. Symptom likely recurrent this admission. Started on Imdur and cardizem now with resolution of pain. Will discharged for follow up with PMD on current medications. Imdur, cardizem. Qualifiers: Chest pain type: unspecified Qualified Code(s): R07.9 - Chest pain, unspecified (2) Diabetes mellitus type 2 in obese Priority: Secondary Status: Chronic Assessment and Plan: Bs controlled. Monitor BS. (3) CAD (coronary artery disease) Priority: Secondary Status: Chronic Assessment and Plan: s/p LHC with nonobstructive CAD. c/w home medications: ASA, statin, imdur. Qualifiers: Coronary Disease-Associated Artery/Lesion type: [place] artery [place] vs. transplanted heart: [place] heart Associated angina: with angina and documented spasm Qualified Code(s): I25.111 - Atherosclerotic heart disease of [place] coronary artery with angina pectoris with documented spasm (4) Chronic prescription opiate use Priority: Secondary Status: Chronic (5) Essential hypertension Priority: Secondary Status: Chronic Assessment and Plan: Bp controlled. Now now systolic low 100s. Started on Imdur and cardizem on this admission on top of ACEI and BB. Monitor BP closely. May need to lower dose of medications if needed as outpatient. Hospital course: Mr. Burch is a 62 year old male with PMH CAD s/p VT and PCI, HTN, DM, HLD presented to the ED with chest pain with elevated troponins. Of note, patient was recently admitted for similar complaints and underwent a LHC showing mild nonobstructive CAD with observed spasm. Cardiology evaluated patient with suspicion for recurrent vasospasm. Patient was started on Imdur and cardizem with now resolution of chest pain and denies any complaints. Will discharge patient to follow up with PMD and continue new medication regimen. Of note, patient's BP is hovering around low 100s systolic, Imdur was decreased from 60 to 30mg yesterday. Will continue current dose as patient is asymptomatic. Monitor outpatient and adjust BP medications if BP declines. Discharge discussed with: patient, nurse - Time Spent with Patient Total time spent providing and/or coordinating discharge services: Greater than 30 minutes - Discharge Medications Prescriptions: Diltiazem CD (24hr) [Cardizem CD] 120 mg PO DAILY 30 Days #30 cap.er.24h Isosorbide MONOnitrate (24 HR) [Imdur] 30 mg PO DAILY 30 Days #30 tab.er.24h Home Medications: Glimepiride [Amaryl] 2 mg PO DAILY 07/14/17 [History] Oxycodone HCl 15 mg PO 5XD 07/14/17 [History] Sertraline [Zoloft] 200 mg PO DAILY 07/14/17 [History] Tizanidine HCl 1 tab PO TID PRN 07/14/17 [History] diazePAM [Valium] 5 mg PO BID 07/14/17 [History] Aspirin 81 mg PO DAILY #30 tab.chew 07/16/17 [Rx] Clopidogrel [Plavix] 75 mg PO DAILY 12/10/17 [History] DULoxetine [Cymbalta] 20 mg PO BID 12/10/17 [History] Lisinopril [Zestril] 2.5 mg PO DAILY #30 tablet 12/11/17 [Rx] Metoprolol [Lopressor] 12.5 mg PO BID #60 tablet 12/11/17 [Rx] Albuterol Sulfate [Albuterol Inhaler] 2 puff IH Q6H PRN 01/08/18 [History] Metformin HCl 1,000 mg PO DAILY 01/08/18 [History] Tiotropium [place] [Spiriva Respimat] 2 puff IH DAILY 01/08/18 [History] Diltiazem CD (24hr) [Cardizem CD] 120 mg PO DAILY 30 Days #30 cap.er.24h [Rx] Isosorbide MONOnitrate (24 HR) [Imdur] 30 mg PO DAILY 30 Days #30 tab.er.24h [Rx] Allergies/Adverse Reactions: 3 Allergy/AdvReac Type Severity Reaction Status Date / Time No Known Allergies Allergy Verified 01/08/18 10:56 Date of admission: 01/08/18 13:39 Primary care physician: Izabela Sam CNP Consults: 01/09/18 10:36 Consult to Cardiology [CONS] Routine Comment: Consulting Provider: Cardiology Tila Reason for Consult: Chest pain, elevated Troponin, h/o coronary vasospasm Call Completed: Yes - Constitutional Vitals: Temp Pulse Resp BP Pulse Ox 97.5 F L 62 18 105/73 98 01/11/18 08:35 01/11/18 08:35 01/11/18 08:35 01/11/18 08:35 01/11/18 08:35 [General: Alert and oriented. Obese. Skin: Normal color, no rash, no lesions. HEENT: EOMI, pupils equal, round and reactive. Cardiovascular: Regular rate, regular rhythm. No murmurs appreciated. Lungs:Normal breath sounds, no wheezes or crackles. Abdomen:Soft, non-tender, no rigidity. Extremities:No deformity, no edema or tenderness, no joint swelling or clubbing. Neurological:Normal cognition, no weakness, no numbness. Rest of the physical exam is non contributory General appearance: Present: A&O X 3, obese, answers questions appropriately - Patient Status Disposition: Home, Self-Care Overall status at discharge: patient is progressing back to baseline - Discharge Instructions Instructions: Diltiazem (By mouth), Isosorbide Mononitrate (By mouth), Myocardial Infarction (DC), Chest Pain (DC) Follow Up With: Izabela Sam CNP [Primary Care Provider] - 01/20/18 3:00 pm - Diet and Activity Activity: resume usual activities as tolerated
[2018-01-11] MEDS ORDERED: *HR* Metformin 500 MG TABLET PO SCH (12:00)
--- NOTE | 2018-01-11 12:08 | Event Note ---
Date of Encounter: 01/11/18 Time of Encounter: 12:00 - Cardiology Event Note Patient discharged home. Seen in room prior to leaving. Patient dressed and monitor off. He states that he is feeling much better and ready to go home. Ambulating in hallways without chest pain. Continue CCB, lower dose imdur, and NTG PRN. Out-patient f/u in one week with [facility] will be coordinated. Chest X-Ray 01/08/18 09:35 IMPRESSION: 1. No acute abnormality. D/ / Edis Esteban MD / Edis Esteban MD Interpreting Provider: Edis Esteban MD Vital Signs Temp Pulse Resp BP Pulse Ox 01/11/18 08:35 97.5 F L 62 18 105/73 98 01/11/18 07:43 18 98 01/11/18 07:31 97.5 F L 62 18 105/73 95 01/11/18 03:42 97.7 F 70 18 104/70 97 01/10/18 23:53 98.4 F 66 18 95/64 92 01/10/18 19:16 97.9 F 70 19 106/61 92 01/10/18 16:25 97.9 F 61 18 105/60 96 01/10/18 16:12 97.9 F 61 18 105/60 96 Intake and Output 01/10/18 01/11/18 01/11/18 23:59 07:59 15:59 Intake Total 480 / 480 240 / 240 Output Total 0 / 0 0 / 0 Balance 480 / 480 240 / 240 Intake: Oral 480 / 480 240 / 240 Output: Urine 0 / 0 0 / 0 Other: Meal Dinner Breakfast Percent of Meal Consumed 100% 100% Weight 143.2 kg Blood Glucose* 134 125 128 Patient Weight 01/11/18 23:59 Weight 143.2 kg .
== END 2018-01-11 11:51 | disposition home or self-care (01) | DRG 303 ==
LOC: EMEROO 09:28 → 2NNU 13:39 → SUATTDRO 13:39 → 2NNU 14:00
PROVIDERS: ADMIT Internal Medicine; ATTEND Student in an Organized Health Care Education/Training Program

== ENCOUNTER 2018-01-23 14:34 | Inpatient (IN) ==
[~2018-01-23 14:34] MED LIST: *HR* Etomidate 20 MG/10 ML AMPUL IVP ONE; *HR* Rocuronium Bromide 100 MG/10 ML VIAL IVC ONE
[2018-01-23] MEDS ORDERED: 0.9 % Sodium Chloride 1,000 ML ONE (14:45)
[2018-01-23] MEDS ORDERED: Pantoprazole 40 MG VIAL IVP ONE (14:55)
[2018-01-23] MEDS ORDERED: Ondansetron 4 MG/2 ML VIAL IVP ONE (15:10)
[2018-01-23] MEDS ORDERED: 0.9 % Sodium Chloride 1,000 ML IVC ONE (15:11)
[2018-01-23] MEDS: 0.9 % Sodium Chloride 500 ML ONE ×2 (15:24→18:38)
[2018-01-23] MEDS ORDERED: Octreotide 50 MCG/ML SYRINGE IVP ONE (15:25)
[2018-01-23] MEDS: Pantoprazole 40 MG in 0.9 % Sodium Chloride Mini Bag 100 ML IVC SCH ×2 (15:30→20:43)
[2018-01-23 15:31] LABS: Hematocrit 38.7 % (37.5-50.1); Mean Corpuscular Hemoglobin 28.2 pg (28.0-33.3); Mean Corpuscular Volume 91.1 fL (83.0-100.0); Mean Platelet Volume 9.7 fL (9.4-12.4); Platelet Count 343 K/mcL (140-400); Red Blood Count 4.25 M/mcL (4.19-5.50); Red Cell Distribution Width 14.3 % (11.5-14.5)
[2018-01-23 15:55] LABS: INR 1.1; Lymphocytes # 1.9 K/mcL (0.6-4.6); Monocytes # 0.6 K/mcL (0.0-1.3); Neutrophils # 28.3 K/mcL (1.6-8.9); Platelet Estimate Normal (Normal); Prothrombin Time 12.4 Seconds (9.4-12.1)
[2018-01-23 15:57] LABS: Activated Partial Thrombo Time 24.9 Seconds (26.0-36.0)
[2018-01-23] MEDS: Isovue-370 500 ML INFUS..BTL IV ONE ×2 (16:05→16:07)
--- NOTE | 2018-01-23 16:06 | Emergency Department Note ---
Disposition Clinical Impression: Upper GI bleed, NSTEMI (non-ST elevated myocardial infarction), ROSALIO (acute kidney injury), Hyponatremia, Hyperkalemia Leukocytosis Qualifiers: Leukocytosis type: unspecified Qualified Code(s): D72.829 - Elevated white blood cell count, unspecified Disposition: Admitted As Inpatient Condition: Critical GI Bleed HPI - General Chief complaint: ED GI Bleed Stated complaint: GI Bleed Time Seen by Provider: 01/23/18 14:37 Source: EMS Mode of arrival: EMS Limitations: altered mental status, physical limitation Nursing Notes Reviewed: Yes Vital Signs Reviewed: Yes - History of Present Illness HPI Narrative: 62-year-old male past medical history of CAD with stenting currently on antiplatelet therapy who presents to the ER via EMS due to bright red blood emesis. EMS states that he is on antiplatelet medications for his stent. He was at home and started throwing up blood. Upon arrival the patient is noted to be diaphoretic as well as hypotensive. He was alert answering questions appropriately but would easily nod off. He reports pain of his chest and abdomen. He is noted to have some dried blood in his oropharynx. He states that he was throwing up and fell over. He denies any other complaints. Pt Subjective Complaint: blood streaked emesis Onset (ago): Just [employer] Consistency: intermittent Severity: none Improves with: nothing Worsens with: nothing Associated symptoms: Reports: abdominal pain Treatments Prior to Arrival: none - Related Data Home Medications Medication Instructions Recorded Confirmed Glimepiride [Amaryl] 2 mg PO DAILY 07/14/17 01/23/18 Oxycodone HCl 15 mg PO 5XD 07/14/17 01/23/18 Sertraline [Zoloft] 200 mg PO DAILY 07/14/17 01/23/18 Tizanidine HCl 4 mg PO TID PRN 07/14/17 01/23/18 diazePAM [Valium] 5 mg PO BID 07/14/17 01/23/18 Clopidogrel [Plavix] 75 mg PO DAILY 12/10/17 01/23/18 DULoxetine [Cymbalta] 20 mg PO BID 12/10/17 01/23/18 Albuterol Sulfate [Albuterol 2 puff IH Q6H PRN 01/08/18 01/23/18 Inhaler] Metformin HCl 1,000 mg PO DAILY 01/08/18 01/23/18 Tiotropium [place] [Spiriva 2 puff IH DAILY 01/08/18 01/23/18 Respimat] Ondansetron HCl [Zofran] 4 mg PO Q8HR PRN 01/23/18 01/23/18 Previous Rx's Medication Instructions Recorded Aspirin 81 mg PO DAILY #30 tab.chew 07/16/17 Lisinopril [Zestril] 2.5 mg PO DAILY #30 tablet 12/11/17 Metoprolol [Lopressor] 12.5 mg PO BID #60 tablet 12/11/17 Diltiazem CD (24hr) [Cardizem CD] 120 mg PO DAILY 30 Days #30 01/11/18 cap.er.24h Isosorbide MONOnitrate (24 HR) 30 mg PO DAILY 30 Days #30 01/11/18 [Imdur] tab.er.24h Allergies Allergy/AdvReac Type Severity Reaction Status Date / Time No Known Allergies Allergy Verified 01/08/18 10:56 All systems ED: reviewed and negative except as stated. Cardiovascular: Reports: chest pain Respiratory: Reports: dyspnea Gastrointestinal: Reports: abdominal pain, vomiting, hematemesis Past Medical History - Past Medical History Attestation: Yes The following information was validated with the patient. Source: patient, old records reviewed, obtained from family Medical history: Reports: arthritis, coronary artery disease, diabetes, hyperlipidemia, kidney stones, myocardial infarction Surgical history: Reports: angioplasty/stent, cholecystectomy Psychiatric history: Reports: depression - Social History Smoking Status: Current every day smoker Smokeless Tobacco Status: No Alcohol use: Reports: none Drug use: Reports: none Physical Exam - General Limitations: physical limitation General appearance: alert, in distress - Head Head exam: atraumatic, normocephalic - Eye Eye exam: Present: normal appearance - ENT ENT exam: other (Dried blood in the oropharynx.) - Neck Neck exam: Present: normal inspection - Chest Chest inspection: Present: normal inspection, symmetric chest wall rise - Respiratory Respiratory exam: Present: normal lung sounds bilaterally - Cardiovascular Cardiovascular exam: Present: regular rate, normal rhythm, normal heart sounds - Abdominal Exam Abdominal exam: Present: soft, tenderness (Moderate epigastric tenderness). Absent: distention, guarding, rigidity - Extremities Exam Extremities exam: Present: normal inspection, full ROM - Expanded Upper Extremity Exam Shoulder exam: Present: normal inspection, full ROM Arm exam: Present: normal inspection, full ROM Elbow exam: Present: normal inspection, full ROM Forearm/Wrist exam: Present: normal inspection, full ROM Hand exam: Present: normal inspection, full ROM - Expanded Lower Extremity Exam Hip/Pelvis exam: Present: normal inspection, full ROM Upper leg exam: Present: normal inspection, full ROM Knee exam: Present: normal inspection, full ROM Lower leg exam: Present: normal inspection, full ROM Ankle exam: Present: normal inspection, full ROM Foot/toe exam: Present: normal inspection, full ROM - Skin Skin exam: Present: warm, dry Course Course Narrative: Patient seen and examined at time of arrival. Noted be diaphoretic and hypotensive. The patient was subsequently moved to the resuscitation room emergently. He then had a large episode of grossly bloody emesis. Endoscopy was paged overhead. Plan to intubate for airway protection with central line placement and volume resuscitation. - Reevaluation(s) Reevaluation #1: Chest x-ray per hour interpretation reveals a concern for widened mediastinum. Patient emergently sent to CT for angiography. Trauma blood has been administered. Protonix bolus and drip as well as octreotide bolus and drip ordered. Remains normotensive at this time. Reevaluation #2: Spoke with radiology. No evidence of dissection. Patient became hypotensive after returning from imaging. 2 additional units of blood ordered and given. - Consultations Consultation #1: I spoke with the on-call endoscopist Dr. Rehman. Discussed the patient's history exam imaging labs and current interventions. Request to be paged once the patient is in the intensive care unit. Consultation #2: I spoke with the on-call rope walker. Discussed the patient's history exam imaging labs and interventions. He recommends to increase the patient's respiratory rate as he was hypercapnic respiratory acidosis. The patient will be admitted to the hospitalist as rope walker is currently not in house. Vital Signs Temperature 97.5 F L 01/23/18 14:37 Pulse Rate 90 01/23/18 14:37 Respiratory Rate 18 01/23/18 14:37 Blood Pressure 99/65 01/23/18 14:37 O2 Sat by Pulse Oximetry 97 01/23/18 14:37 Temperature 97.5 F L 01/23/18 14:37 Pulse Rate 93 01/23/18 16:48 Respiratory Rate 20 01/23/18 18:28 Blood Pressure 88/71 01/23/18 17:49 O2 Sat by Pulse Oximetry 100 01/23/18 18:28 Oxygen Delivery Oxygen Delivery Ventilator Procedures - Central Line Placement Right Femoral Central Line Inserted*: Yes Central Line Insertion: emergent Procedural Pause: verify patient name and date of , assemble equipment and verify supplies Patient Placed on Monitor/Pulse Ox: Yes During the Procedure: clinician is wearing sterile gloves, cap, mask,& gown during insertion, sterile field and sterile technique are maintained, patient's face is covered with drape or mask and wearing a cap, everyone in room is wearing a mask Central Line Prep: Chlorhexidine scrub Prep the Procedure Site: apply chloraprep to the skin using a back and forth scrubbing motion, apply chloraprep for 30 seconds (upper body), 1-2 min ( femoral sites), allow prep to dry, drape the patient with a full body drape Ultrasound Used for Placement: Yes Central Line Lumen Inserted: single Post Procedure: sutured in place, good blood return, all ports aspirated, flushed, capped, guide wire removed and visualized Patient Tolerated Procedure: well Complications: none Name of Clinician Inserting Central Line: Lance Jarrell D.O. Left IJ Central Line Inserted*: Yes Central Line Insertion: emergent Procedural Pause: verify patient name and date of , assemble equipment and verify supplies Patient Placed on Monitor/Pulse Ox: Yes During the Procedure: clinician is wearing sterile gloves, cap, mask,& gown during insertion, sterile field and sterile technique are maintained, patient's face is covered with drape or mask and wearing a cap, everyone in room is wearing a mask Central Line Prep: Chlorhexidine scrub Prep the Procedure Site: apply chloraprep to the skin using a back and forth scrubbing motion, apply chloraprep for 30 seconds (upper body), 1-2 min ( femoral sites), allow prep to dry, drape the patient with a full body drape Local Anesthetic: lidocaine 1% Amount of anesthesia used (mL): 3 Ultrasound Used for Placement: Yes Central Line Lumen Inserted: triple Post Procedure: sutured in place, good blood return, all ports aspirated, flushed, capped, guide wire removed and visualized Post Procedure X-Ray: tip of catheter in good position Patient Tolerated Procedure: well Complications: none Name of Clinician Inserting Central Line: Lance Jarrell D.O. - Intubation sedative: Etomidate Mg Given: 20 paralytic: Rocuronium Mg Given: 100 Laryngoscope: Benito ET Tube Size: 7.5 Tube Secured Depth (cm): 25 Tube Secured Location: lips Tube Placement Confirmation: visualized tube passing through cords, equal breath sounds bilaterally, no breath sounds over epigastrium, confirmation by capnometry Patient Tolerated Procedure: well Intubation Complications: none GI Bleed - [facility] Narrative Medical decision making narrative: 62-year-old male with acute upper GI bleed. Hemorrhagic shock necessitating 4 units of packed red blood cells while in the emergency department. Intubated for airway securement. Remained hemodynamically unstable for the majority of his ED visit requiring fluid boluses as well as blood. Protonix and octreotide given. CTA without evidence of dissection. Case was discussed with endoscopy. Case was also discussed with the rope walker. The patient is admitted in critical condition to the intensive care unit under the management of the hospitalist. - Lab Data Lab results reviewed: Yes I reviewed the patient's lab results. Result diagrams: 01/23/18 15:20 01/23/18 15:30 Lab Results 01/23/18 01/23/18 01/23/18 Range/Units 15:20 15:20 15:20 WBC 30.8 H* (4.3-11.1) K/mcL RBC 4.25 (4.19-5.50) M/mcL Hgb 12.0 L (12.9-16.9) g/dL Hct 38.7 (37.5-50.1) % MCV 91.1 (83.0-100.0) fL MCH 28.2 (28.0-33.3) pg MCHC 31.0 L (31.6-35.5) g/dL RDW 14.3 (11.5-14.5) % Plt Count 343 (140-400) K/mcL MPV 9.7 (9.4-12.4) fL Seg Neutrophils % 92.0 % Lymphocytes % 6.0 % Monocytes % 2.0 % Neutrophils # 28.3 H (1.6-8.9) K/mcL Lymphocytes # 1.9 (0.6-4.6) K/mcL Monocytes # 0.6 (0.0-1.3) K/mcL Platelet Estimate Normal (Normal) PT 12.4 H (9.4-12.1) Seconds INR 1.1 APTT 24.9 L (26.0-36.0) Seconds ABG pH (7.32-7.45) pH Units ABG pCO2 (35-45) mmHg ABG pO2 (85-104) mmHg ABG HCO3 (21-27) mEq/L ABG Total CO2 (20-26) mEq/L ABG O2 Saturation (95-98) % ABG Base Excess (-2 to 3) mEq/L Respiration Rate O2 Delivery Device Blood Gas Modality Inspired O2 (1-15=lpm [id number]=%) Tidal Volume cc PEEP cm H2O Sodium (136-145) mEq/L Potassium (3.5-5.1) mEq/L Chloride (98-107) mEq/L Carbon Dioxide (23-29) mEq/L BUN (8-23) mg/dL Creatinine (0.70-1.30) mg/dL Est GFR ( Amer) (> 60) Est GFR (Non-Af Amer) (> 60) BUN/Creatinine Ratio (6-26) Glucose (70-105) mg/dL Calculated Osmolality (280-300) Calcium (8.6-10.3) mg/dL Total Bilirubin (0.3-1.0) mg/dL AST (13-39) Units/L ALT (7-52) Units/L Alkaline Phosphatase (34-104) Units/L Troponin I (< 0.04) ng/mL Serum Total Protein (6.4-8.9) g/dL Albumin (3.5-5.7) g/dL Globulin (2.4-3.5) g/dL Albumin/Globulin Ratio (1.1-2.2) Blood Type A POSITIVE Antibody Screen NEGATIVE Crossmatch See Detail 01/23/18 01/23/18 01/23/18 Range/Units 15:30 15:30 16:32 WBC (4.3-11.1) K/mcL RBC (4.19-5.50) M/mcL Hgb (12.9-16.9) g/dL Hct (37.5-50.1) % MCV (83.0-100.0) fL MCH (28.0-33.3) pg MCHC (31.6-35.5) g/dL RDW (11.5-14.5) % Plt Count (140-400) K/mcL MPV (9.4-12.4) fL Seg Neutrophils % % Lymphocytes % % Monocytes % % Neutrophils # (1.6-8.9) K/mcL Lymphocytes # (0.6-4.6) K/mcL Monocytes # (0.0-1.3) K/mcL Platelet Estimate (Normal) PT (9.4-12.1) Seconds INR APTT (26.0-36.0) Seconds ABG pH 7.18 L* (7.32-7.45) pH Units ABG pCO2 66 H (35-45) mmHg ABG pO2 185 H (85-104) mmHg ABG HCO3 25 (21-27) mEq/L ABG Total CO2 27 H (20-26) mEq/L ABG O2 Saturation 99 H (95-98) % ABG Base Excess -5 L (-2 to 3) mEq/L Respiration Rate 14 O2 Delivery Device ET Tube Blood Gas Modality ASSIST CONTROL Inspired O2 100.0 (1-15=lpm [id number]=%) Tidal Volume 520 cc PEEP 5 cm H2O Sodium 129 L (136-145) mEq/L Potassium 5.9 H (3.5-5.1) mEq/L Chloride 98 (98-107) mEq/L Carbon Dioxide 22 L (23-29) mEq/L BUN 37 H (8-23) mg/dL Creatinine 1.78 H (0.70-1.30) mg/dL Est GFR ( Amer) 47 L (> 60) Est GFR (Non-Af Amer) 39 L (> 60) BUN/Creatinine Ratio 21 (6-26) Glucose 342 H (70-105) mg/dL Calculated Osmolality 290 (280-300) Calcium 8.5 L (8.6-10.3) mg/dL Total Bilirubin 0.5 (0.3-1.0) mg/dL AST 16 (13-39) Units/L ALT 17 (7-52) Units/L Alkaline Phosphatase 65 (34-104) Units/L Troponin I 7.00 H* (< 0.04) ng/mL Serum Total Protein 6.1 L (6.4-8.9) g/dL Albumin 3.1 L (3.5-5.7) g/dL Globulin 3.0 (2.4-3.5) g/dL Albumin/Globulin Ratio 1.0 L (1.1-2.2) Blood Type Antibody Screen Crossmatch - Radiology Data Radiology results reviewed: Yes I reviewed the patient's radiology results. Abdomen/Pelvis CTA 01/23/18 15:32 IMPRESSION: 1. No evidence of aortic dissection. 2. Bibasilar atelectasis. 3. Endotracheal tube tip to the level of the ramakrishna directed into the right mainstem bronchus. 4. Well-positioned enteric tube with heterogeneous material in the stomach compatible with blood products. No evidence of active extravasation. 5. Hepatic steatosis. 6. Stable benign right adrenal adenoma. Findings were discussed with Lance Jarrell at 4:39 pm on 01/23/2018. D/ / Raghav Johnson / Raghav Johnson Interpreting Provider: Raghav Johnson Chest CTA 01/23/18 15:32 IMPRESSION: 1. No evidence of aortic dissection. 2. Bibasilar atelectasis. 3. Endotracheal tube tip to the level of the ramakrishna directed into the right mainstem bronchus. 4. Well-positioned enteric tube with heterogeneous material in the stomach compatible with blood products. No evidence of active extravasation. 5. Hepatic steatosis. 6. Stable benign right adrenal adenoma. Findings were discussed with Lance Jarrell at 4:39 pm on 01/23/2018. D/ / Raghav Johnson / Raghav Johnson Interpreting Provider: Raghav Johnson Head CT 01/23/18 15:33 IMPRESSION: No acute intracranial abnormality. Chronic small vessel ischemic white matter disease. Fluid within the nasal cavity and posterior nasopharynx. Clinical correlation is recommended. D/ / 01/23/2018 16:32:01 Maxime Peters MD / lopez Interpreting Provider: Maxime Peters, MD - EKG Data EKG attestation: Yes I reviewed and interpreted this EKG. EKG results narrative: EKG demonstrates sinus rhythm with right bundle branch block with a rate of 90 beats for minute. Prolonged QRS ration 137. Normal R-wave progression. No gross ST elevations or depressions. No acute ischemic findings. No significant changes from prior EKG dated 01/08/18. Critical Care Time Critical Care Time: Yes Total Critical Care Time: 75 Attestation: Critical care time managing patient's massive blood loss elevated troponin and multiple medical problems was 75 minutes this is exclusive of procedure time needed to intubate and place central lines. S.B.A.R. - S.B.A.R. Situation: Demographics, MOA Background: Presenting Complaint, Relevant PMH, Meds, & Allergies Assessment: Vital Signs, Course and respsone to treatment, Exam Concerns, Patient/Family Expectation, Pertinant Lab Results Recommendation: Barrier(s) to disposition, Recommendation based on pending studies, treatments, or consults S.B.A.R. Report Given to: Dr. Ibanez Attestation Statement - Attestation Attestation: Patient was seen with resident physician. I reviewed the history, physical, assessment and plan, and agree with the findings. I also personally evaluated this patient and had [id number] time with this patient. 62-year-old male presents to the emergency department with chief complaint of vomiting blood. Patient states that he has had some mild epigastric pain and some chest discomfort as well. Per family he was recently in the hospital for possible cardiac issues. He had stents placed we believe in July. Patient himself looks very pale and is not giving much of a historian on initial presentation. He did say that he fell and then started throwing up blood. He does not recall if he hit his head or passed out. Review of systems as above remainder negative. Physical exam vital signs patient's tachycardic and hypotensive. He appears very pale. ENT shows pallor and some blood around his lips Heart tachycardic. Lungs were clear no wheezing. Abdomen diffusely tender but especially in the midepigastric area. Extremities largely unremarkable. Neurologically follows commands is arousable but seems drowsy. Psych flat affect. ED course based on initial examination was clear the patient had a significant GI bleed issue or possibly multiple medical problems.shortly after arrival he had a large amount of bloody emesis. With his kind of listless mentation in combination with throwing up blood we felt that intubation was indicated. This was successfully accomplished by resident physician I was there and assisted with the entire procedure. Beattie scope was used to help facilitate. Was done without complication. After that a trauma line was placed in the right groin. Again without incident. O- blood was started as well. Surgery was consulted. Patient was also given fluids which did improve his blood pressure. He was taken to CT scan and scans of his head chest and abdomen and pelvis were obtained to rule out dissection or other abnormalities. These were negative for acute abnormality. A troponin was elevated at 7, this is improved from his most recent one was 9. Patient will be admitted to the intensive care unit for further evaluation and treatment. Before transferring patient to the intensive care unit and at the request the hospitalist service we also placed a triple- lumen into the left internal jugular vein. We reviewed the chest x-ray which did not show pneumothorax or other abnormality. This too was a procedure completed without complication. Throughout his stay we managed his propofol drip and blood pressure. Critical care time was 75 minutes. I agree with the resident physician assessment and plan.
[2018-01-23 16:08] LABS: Albumin 3.1 g/dL (3.5-5.7); Bilirubin,Total 0.5 mg/dL (0.3-1.0); Calcium 8.5 mg/dL (8.6-10.3); Potassium 5.9 mEq/L (3.5-5.1); Total Protein 6.1 g/dL (6.4-8.9)
[2018-01-23] MEDS: Octreotide 400 MCG in 0.9 % Sodium Chloride 100 ML IVC SCH (16:11)
[2018-01-23] MEDS ORDERED: Ringers Solution, Lactated 1,000 ML IVC SCH ×2 (16:15→17:30)
[2018-01-23 16:35] LABS: ABG Base Excess -5 mEq/L (-2 to 3); ABG HCO3 25 mEq/L (21-27); ABG Oxygen Saturation 99 % (95-98); ABG PCO2 66 mmHg (35-45); ABG PH 7.18 pH Units (7.32-7.45); ABG PO2 185 mmHg (85-104); ABG TCO2 27 mEq/L (20-26); Blood Gas Modality ASSIST CONTROL; Blood Gas PEEP 5 cm H2O; Blood Gas Respiration Rate 14; Blood Gas VT 520 cc
[2018-01-23] MEDS ORDERED: *HR* Etomidate 20 MG/10 ML AMPUL IVP ONE (16:48)
[2018-01-23] MEDS ORDERED: *HR* Rocuronium Bromide 50 MG/5 ML VIAL IVP ONE (16:48)
[2018-01-23] MEDS ORDERED: *HR* FentaNYL (PF) 100 MCG/2 ML VIAL IVP ONE (16:48)
[2018-01-23] MEDS ORDERED: *HR* Midazolam HCl 2 MG/2 ML VIAL ONE (17:11)
[2018-01-23] MEDS ORDERED: *HR* Midazolam HCl 2 MG/2 ML VIAL IVP ONE (17:13)
[2018-01-23] MEDS ORDERED: Naloxone 0.4 MG/ML INJ IVP PRN (17:27)
[2018-01-23] MEDS ORDERED: Ipratropium/Albuterol Neb 3 ML IH PRN (17:34)
[2018-01-23] MEDS ORDERED: Piperacillin/Tazobactam 3.375 GM in 0.9 % Sodium Chloride Mini Bag 100 ML IVPB ONE (17:36)
--- NOTE | 2018-01-23 17:42 | Internal Med History&Physical ---
Date of Encounter: 01/23/18 Time of Encounter: 18:00 Internal Medicine - H&P: HPI Chief complaint: hematemesis History of present illness: Unable to get history from the patient is intubated. Further information was obtained from the chart review. Mr. Burch is a 62 year old male with past medical history of CAD status post PCI in June 2017 currently on dual antiplt therapy, diabetes, hypertension, presented to the ED with hematemesis. According to EMS, he started throwing up blood from today and by the time EMS arrived, patient was diaphoretic and hypotensive. He was alert and answering questions appropriately initially but was very lethargic. He was also reporting pain in his chest and abdomen as well. On presentation to the ED, his blood pressure was borderline although not tachycardic. CXR showed possible widened mediastinum hence pt had CTA of chest/abdomen/pelvis which did not reveal any aortic dissection or acute intra-abdominal process other than heterogeneous material in the stomach consistent with blood product. CT head was unremarkable. While in the ED, he had a large amount of hematemesis and was intubated for airway protection. He had received 2 units of PRBCs and planned for another 2U of pRBC transfusion. There is also a plan for urgent endoscopy by surgery. Past Med Surg Social Fam HX - Past Medical History Medical history: arthritis, coronary artery disease, diabetes, hyperlipidemia, kidney stones, myocardial infarction Additional medical history: knee replacement Psychiatric history: depression - Past Surgical History Surgical History: angioplasty/stent, cholecystectomy Additional surgical history: heart stent x1 (2018), left knee replacement - Social History Smoking Status: Current every day smoker Smokeless Tobacco Status: No Alcohol use: none Drug use: none - Family History Father Hx Family Cancer: Yes Hx Family Endocrine Disorder: Yes (kidney replacement) Sister Hx Family Endocrine Disorder: Yes (DM) Internal Medicine - H&P: Meds Glimepiride [Amaryl] 2 mg PO DAILY 07/14/17 [History] Oxycodone HCl 15 mg PO 5XD 07/14/17 [History] Sertraline [Zoloft] 200 mg PO DAILY 07/14/17 [History] Tizanidine HCl 4 mg PO TID PRN 07/14/17 [History] diazePAM [Valium] 5 mg PO BID 07/14/17 [History] Aspirin 81 mg PO DAILY #30 tab.chew 07/16/17 [Rx] Clopidogrel [Plavix] 75 mg PO DAILY 12/10/17 [History] DULoxetine [Cymbalta] 20 mg PO BID 12/10/17 [History] Lisinopril [Zestril] 2.5 mg PO DAILY #30 tablet 12/11/17 [Rx] Metoprolol [Lopressor] 12.5 mg PO BID #60 tablet 12/11/17 [Rx] Albuterol Sulfate [Albuterol Inhaler] 2 puff IH Q6H PRN 01/08/18 [History] Metformin HCl 1,000 mg PO DAILY 01/08/18 [History] Tiotropium [place] [Spiriva Respimat] 2 puff IH DAILY 01/08/18 [History] Diltiazem CD (24hr) [Cardizem CD] 120 mg PO DAILY 30 Days #30 cap.er.24h [Rx] Isosorbide MONOnitrate (24 HR) [Imdur] 30 mg PO DAILY 30 Days #30 tab.er.24h [Rx] Ondansetron HCl [Zofran] 4 mg PO Q8HR PRN 01/23/18 [History] 3 Allergy/AdvReac Type Severity Reaction Status Date / Time No Known Allergies Allergy Verified 01/08/18 10:56 ROS unobtainable: due to endotracheal tube All Systems PM: A 10-system review of systems was performed and is negative for pertinent findings except as documented above in the HPI. - Constitutional Vitals: Temp Pulse Resp BP Pulse Ox 97.5 F L 93 19 100/44 98 01/23/18 14:37 01/23/18 16:48 01/23/18 16:40 01/23/18 16:48 01/23/18 16:48 Exam: General: intubated and sedated, NGT in situ HEENT:EOM, pupils equal, round, and reactive. Cardiovascular: tachycardic, normal rhythm Lungs:equal breath sounds bilaterally, no wheeze Abdomen:Soft, non-tender, no rigidity. Extremities:No deformity, no joint swelling. Neurological: Unable to do neuro exam due to patient's clinical status. Skin:Normal color, no rash Pulses:Carotid and radial pulses normal +2. Rest of the physical exam is non-contributory Internal Med - H&P Results - Labs CBC & Chem 7: 01/23/18 15:20 01/23/18 15:30 - VTE Reasons for not Prescribing Prophylaxis: Medical contraindication - Assessment and plan (1) Shock Current Visit: Yes Status: Acute Assessment and plan: Likely secondary to hypovolemic shock from UBGIT, less likely to be septic shock despite leukocytosis of 30.8. Hemoglobin on presentation was 12 (baseline 15) but he had a large amount of emesis while he was in the ED. Was given a total of 4 units of PRBC so far Continue Protonix gtt. Also started on octreotide infusion as well. H&H every 6, check lactic acid Endoscopy for surgery Blood cultures 2 sets, will give 1 dose of empiric Zosyn as he is also being treated for possible variceal bleed in addition to vanc (2) Respiratory failure requiring intubation Current Visit: Yes Status: Acute Assessment and plan: Intubated for airway protection, no evidence of parenchymal disease and lung mechanics appear to be acceptable Right mainstem intubation, ABG shows respiratory acidosis ETT pulled by 3cm in the ED current setting at 18/520/60/5 will repeat ABG and CXR post endoscopy and adjust the setting thereafter (3) Hematemesis Current Visit: Yes Status: Acute Assessment and plan: Management as above Qualifiers: Nausea presence: unspecified Qualified Code(s): K92.0 - Hematemesis (4) ROSALIO (acute kidney injury) Current Visit: Yes Status: Acute Assessment and plan: Likely due to prerenal from hypovolemia IV fluid and monitor creatinine and UOP Avoid nephrotoxins and renally dosed antibiotics (5) Elevated troponin Current Visit: Yes Status: Acute Assessment and plan: History of PCI in June 2017 currently on joint antiplatelet therapy. He was admitted 2 weeks ago for coronary vasospasm and elevated troponin. Troponin at time of discharge was 9 -> now at 7 Current elevation likely due to type II event from hypovolemic shock but obviously type I event cannot be excluded nevertheless, due to life-threatening GI bleed, anticoagulation is contracted indicated. 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 - Time Spent With Patient Total time spent is greater than 50% in coordination of care (as documented) at patient's floor/unit and/or counseling patient: Greater than 35 minutes
[2018-01-23] MEDS ORDERED: *HR* Dextrose 50 % in Water (Syg) 50 ML SYRINGE IVP PRN (17:44)
[2018-01-23] MEDS ORDERED: Dextrose Gel 15 GM/37.5 ML TUBE PO PRN ×2 (17:44)
[2018-01-23] MEDS ORDERED: D5% in Water 1,000 ML IVC PRN (17:44)
--- NOTE | 2018-01-23 18:24 | Pre-Sedation Evaluation ---
Pre-sedation evaluation - Pre-sedation checklist Procedure: Heart cath Recent Vitals: Last Vital Signs Temp 97.5 F L 01/23/18 14:37 Pulse 93 01/23/18 16:48 Resp 18 01/23/18 17:49 BP 88/71 01/23/18 17:49 Pulse Ox 98 01/23/18 16:48 H&P (including ROS) documented in medical record: Yes Previous reaction to sedatives/anesthetics: No Dietary Status: NPO after Midnight Airway Assessment: Patient can open mouth completely, TMJ function normal Dentition: No loose teeth or bridges Possible difficult airway: No ASA Classification *see protocol: CLASS IV-Severe systemic disease/constant threat to pt's life Plan of Care: Pt appropriate candidate for procedure/moderate/conscious sedation Cardiac Registry (Cardio Only) - Functional Capacity - Clincal Frailty Scale
[2018-01-23] MEDS ORDERED: Lacri-Lube 3.5 GM TUBE BOTH EYES PRN (18:25)
[2018-01-23] MEDS: *HR* Propofol 500 MG/50 ML BOTTLE IVP SCH ×2 (18:33→19:35)
[2018-01-23 18:34] LABS: VBG Ionized Calcium 1.18 mmol/L (1.15-1.35)
[2018-01-23] MEDS: Insulin LISPRO 300 UNITS/3 ML VIAL SQ SCH (18:38)
[2018-01-23 19:02] LABS: Hematocrit 43.9 % (37.5-50.1); Hemoglobin 14.5 g/dL (12.9-16.9)
--- NOTE | 2018-01-23 19:15 | Event Note ---
Date of Encounter: 01/23/18 Time of Encounter: 19:14 EGD performed at bedside. Noticed large old appearing clot in the cardia. No abnormality of visualized in the esophagus and no evidence of an abnormality grossly visualized in the stomach. Biopsies obtained to rule out gastritis. No evidence of a duodenal abnormality visualized. No duodenal ulcer. No visualized red blood or active bleeding. Recommend continue NG tube decompression and continue with Protonix.
[2018-01-23 20:32] LABS: ABG Base Excess -1 mEq/L (-2 to 3); ABG HCO3 26 mEq/L (21-27); ABG Oxygen Saturation 90 % (95-98); ABG PCO2 49 mmHg (35-45); ABG PH 7.34 pH Units (7.32-7.45); ABG PO2 63 mmHg (85-104); ABG TCO2 28 mEq/L (20-26); Blood Gas PEEP 5 cm H2O; Blood Gas Respiration Rate 18; Blood Gas VT 520 cc
[2018-01-23] MEDS: Chlorhexidine Rinse 15 ML MOUTHWASH MM SCH (20:43)
[2018-01-23] MEDS: Lacri-Lube 3.5 GM TUBE BOTH EYES SCH (20:44)
[2018-01-23] MEDS: Ringers Solution, Lactated 1,000 ML IVC SCH (21:54)
[2018-01-24 00:09] LABS: BUN/Creatinine Ratio 32 (6-26); Blood Urea Nitrogen 38 mg/dL (8-23); Calcium 8.8 mg/dL (8.6-10.3); Carbon Dioxide 25 mEq/L (23-29); Chloride 101 mEq/L (98-107); Glucose 160 mg/dL (70-105); Osmolality,Calculated 288 (280-300); Sodium 133 mEq/L (136-145); eGFR For Non-African Americans > 60 (> 60)
[2018-01-24] MEDS: Lacri-Lube 3.5 GM TUBE BOTH EYES SCH ×4 (00:13→10:11)
[2018-01-24] MEDS: Insulin LISPRO 300 UNITS/3 ML VIAL SQ SCH ×4 (00:13→18:12)
[2018-01-24] MEDS: Pantoprazole 40 MG in 0.9 % Sodium Chloride Mini Bag 100 ML IVC SCH ×4 (01:38→15:31)
[2018-01-24 04:19] LABS: ABG Base Excess 1 mEq/L (-2 to 3); ABG HCO3 27 mEq/L (21-27); ABG Oxygen Saturation 93 % (95-98); ABG PCO2 45 mmHg (35-45); ABG PH 7.38 pH Units (7.32-7.45); ABG PO2 71 mmHg (85-104); ABG TCO2 28 mEq/L (20-26); Blood Gas PEEP 5 cm H2O; Blood Gas Respiration Rate 18; Blood Gas VT 520 cc
[2018-01-24] MEDS: Ringers Solution, Lactated 1,000 ML IVC SCH ×3 (04:20→10:11)
[2018-01-24] MEDS: Octreotide 400 MCG in 0.9 % Sodium Chloride 100 ML IVC SCH ×3 (04:20→10:10)
[2018-01-24 04:41] LABS: Immature Granulocytes % 0.6 % (0-4); Mean Platelet Volume 9.7 fL (9.4-12.4)
[2018-01-24 04:42] LABS: Basophils # 0.1 K/mcL (0.0-0.2); Basophils % 0.2 %; Hematocrit 39.8 % (37.5-50.1); Hemoglobin 13.2 g/dL (12.9-16.9); Lymphocytes # 2.2 K/mcL (0.6-4.6); Lymphocytes % 8.2 %; Mean Corpuscular HGB Conc 33.2 g/dL (31.6-35.5); Mean Corpuscular Hemoglobin 28.5 pg (28.0-33.3); Monocytes # 1.5 K/mcL (0.0-1.3); Monocytes % 5.6 %; Platelet Count 222 K/mcL (140-400); Red Blood Count 4.63 M/mcL (4.19-5.50); Red Cell Distribution Width 14.4 % (11.5-14.5); Segmented Neutrophils % 85.4 %
[2018-01-24 04:43] LABS: Neutrophils # 22.9 K/mcL (1.6-8.9)
[2018-01-24 04:48] LABS: INR 1.2
[2018-01-24 05:03] LABS: Magnesium 1.8 mg/dL (1.6-2.6)
[2018-01-24 05:05] LABS: Platelet Estimate Normal (Normal)
[2018-01-24 06:24] LABS: Alanine Aminotransferase 13 Units/L (7-52); Albumin 3.1 g/dL (3.5-5.7); Albumin/Globulin Ratio 1.1 (1.1-2.2); Alkaline Phosphatase 59 Units/L (34-104); Aspartate Amino Transferase 19 Units/L (13-39); BUN/Creatinine Ratio 30 (6-26); Bilirubin,Total 0.7 mg/dL (0.3-1.0); Blood Urea Nitrogen 33 mg/dL (8-23); Calcium 8.8 mg/dL (8.6-10.3); Carbon Dioxide 24 mEq/L (23-29); Chloride 101 mEq/L (98-107); Globulin 2.9 g/dL (2.4-3.5); Glucose 212 mg/dL (70-105); Osmolality,Calculated 288 (280-300); Potassium 5.1 mEq/L (3.5-5.1); Sodium 132 mEq/L (136-145); eGFR For Non-African Americans > 60 (> 60)
--- NOTE | 2018-01-24 07:41 | Pulmonology Consult Note ---
<Cyn Odom - Last Filed: 01/24/18 16:12> Date of Encounter: 01/24/18 Time of Encounter: 07:40 Assessment and Plan (1) Acute respiratory failure requiring reintubation Current Visit: Yes Status: Acute He was intubated for airway protection due to hematemesis, was extubated this morning. At admission CT did not show any suspicion for pneumonia. There is bibisilar atelectasis present on CXR and CT of the chest. Also, ABG at presentation was consistent with hypoxemia and respiratory acidosis likely secondary to respiratory distress due to emesis. -Continue supplemental oxygen, on 2 liters and oxygen saturation is 95% (2) Shock Current Visit: Yes Status: Acute Likely secondary to hypovolemic shoft from upper GI bleed. Leukocytosis at presentation 30.8 and repeated WBC 26.8. Not suspecting infectious state. 2 blood cultures negative. -EGD showed a blood clot, no active bleeding site identified biopsy taken -Received 4 units of blood, hemoglobin 11.9 -Continue Q6HR -Received IV protonix drip, also received octreotide drip -Stopped octreotide -Continue to IV protonix 40 mg once a day (3) Hematemesis Current Visit: Yes Status: Acute Had two episodes of large hematemesis at the ED and upon presentation. Hemoglobin at presentation 12.0 and baseline is 15.1. Has received 4 units of blood products. -No episode of new onset hematemesis -No bowel movements -Continue to monitor hemoglobin Q6 Qualifiers: Nausea presence: with nausea Qualified Code(s): K92.0 - Hematemesis (4) ROSALIO (acute kidney injury) Current Visit: Yes Status: Resolved ROSALIO resolved. Creatinine at presentation 1.78 at presentation likely secondary to prerenal cause, has received 2 units of IV fluids and 4 units of hemoglobin. His most recent creatinine 1.09. -Continue to monitor -Avoid nephrotoxins (5) Elevated troponin Current Visit: Yes Status: Acute At presentation his troponin wa 7.0 and lowerd to 6.08 and last reading was 5.99. He has no acute EKG changes. He does have history of elevated troponin, two weeks ago it was 9.82. -Last echo one month ago with 60-65% LVEF and moderate left ventricular diastolic dysfunction -Cardiology consulted (6) Diabetes Current Visit: Yes Status: Chronic History of DM II and at home on oral antiglycemics, metformin and glimepiride. His recent A1c one month ago was 7.3. Most recent blood glucose 172. He is NPO due to hemetemesis and risk for aspiration. -Continue lispro sliding scale Qualifiers: Diabetes mellitus type: type 2 Diabetes mellitus manager long term care insulin use: without [facility] use Diabetes mellitus complication status: with unspecified complications Qualified Code(s): E11.8 - Type 2 diabetes mellitus with unspecified complications (7) Chronic back pain Current Visit: Yes Status: Chronic Has history of chronic back pain and at home is on chronic oxycodone 15 mg five times a day -Started 10 mg oxycode Q4HR -Dulcolax PRN to prevent opiod induced constipation Qualifiers: Back pain location: low back pain Back pain laterality: unspecified Sciatica presence: without sciatica Qualified Code(s): M54.5 - Low back pain; G89.29 - Other chronic pain (8) DVT prophylaxis Current Visit: Yes Status: Acute SCDs, anticoagulants not recommended at this time due to recent hematemesis History of Present Illness Consult date: 01/23/18 Reason for consult: dyspnea Chief complaint: hematemesis History of present illness: History is obtained from other chart review because the patient has been confused and does not answer questions appropriately. He is a 62 year old male with past medical history of CAD and PCI in June in 2017 and was on dual antiplatelet therapy. He also has history of diabetes, hypertension and was presented to the ED with hematemesis , per EMS he was diaphoretic and hypotensive but was somnolent but alert and answering questions. He reported chest and abdominal pain. CXR showed widened mediastinum but the CTA did not reveal any aortic dissection or acute intra abdominal bleed. CT of the head showed no acute findings. He was intubated due to hematemesis but this morning was exubated. At presentation he received 4 units of blood. His hemoglobin at presentation was 12.0, 14.5, 13.2 and 11.9. At presentation his troponin was 7.0, 6.08 and then it lowered to 5.99, he does have history of elevated troponin and his last admission troponin was 9.12. His EKG did not show any changes. He had a bedside EGD and showed clot in the cardia. Biopsies were obtained to rule out gastritis. His morning he was on 2 liters of oxygen and his oxygen saturation is 95%. He is somnolent and not responding to questions appropriately. Past Med Surg Social Fam HX - Past Medical History Medical history: arthritis, coronary artery disease, diabetes, hyperlipidemia, kidney stones, myocardial infarction Additional medical history: knee replacement Psychiatric history: depression - Past Surgical History Surgical History: angioplasty/stent, cholecystectomy Additional surgical history: heart stent x1 (2018), left knee replacement - Social History Smoking Status: Current every day smoker Smokeless Tobacco Status: No Alcohol use: none Drug use: none - Family History Father Hx Family Cancer: Yes Hx Family Endocrine Disorder: Yes (kidney replacement) Sister Hx Family Endocrine Disorder: Yes (DM) Medications and Allergies Glimepiride [Amaryl] 2 mg PO DAILY 07/14/17 [History] Oxycodone HCl 15 mg PO 5XD 07/14/17 [History] Sertraline [Zoloft] 200 mg PO DAILY 07/14/17 [History] Tizanidine HCl 4 mg PO TID PRN 07/14/17 [History] diazePAM [Valium] 5 mg PO BID 07/14/17 [History] Aspirin 81 mg PO DAILY #30 tab.chew 07/16/17 [Rx] Clopidogrel [Plavix] 75 mg PO DAILY 12/10/17 [History] DULoxetine [Cymbalta] 20 mg PO BID 12/10/17 [History] Lisinopril [Zestril] 2.5 mg PO DAILY #30 tablet 12/11/17 [Rx] Metoprolol [Lopressor] 12.5 mg PO BID #60 tablet 12/11/17 [Rx] Albuterol Sulfate [Albuterol Inhaler] 2 puff IH Q6H PRN 01/08/18 [History] Metformin HCl 1,000 mg PO DAILY 01/08/18 [History] Tiotropium [place] [Spiriva Respimat] 2 puff IH DAILY 01/08/18 [History] Diltiazem CD (24hr) [Cardizem CD] 120 mg PO DAILY 30 Days #30 cap.er.24h [Rx] Isosorbide MONOnitrate (24 HR) [Imdur] 30 mg PO DAILY 30 Days #30 tab.er.24h [Rx] Ondansetron HCl [Zofran] 4 mg PO Q8HR PRN 01/23/18 [History] 3 Allergy/AdvReac Type Severity Reaction Status Date / Time No Known Allergies Allergy Verified 01/08/18 10:56 ROS unobtainable: due to mental status All Systems: The remainder of the systems were reviewed and are negative Physical Examination Vital Signs: Vital Signs, Last 4 Hours Temp Pulse Resp BP Pulse Ox 01/24/18 07:20 100 01/24/18 07:00 98 22 107/90 100 01/24/18 06:00 98 18 96/75 97 01/24/18 05:30 18 95 01/24/18 05:00 105 18 90/64 94 01/24/18 04:30 99.6 F 106 18 120/84 94 01/24/18 03:45 18 97 General appearance: no acute distress, alert, asleep Eyes: nonicteric ENT: oropharynx moist Effort: normal Inspection: normal Auscultation: bilateral: diminished breath sounds (bilateral lower lobes) Cardiovascular: regular rate and rhythm Gastrointestinal: soft, tender (left lower quadrant abdominal tenderness ) Extremities: no cyanosis, no edema Musculoskeletal: no deformities Ventilator Settings Ventilator Settings: Ventilator Settings, Last 8 Hours Ventilator Tidal Volume 520 Setting Ventilator Tidal Volume 520 Setting Ventilator Tidal Volume 520 Setting Ventilator Tidal Volume 520 Setting Ventilator Tidal Volume 520 Setting Ventilator Tidal Volume 520 Setting Ventilator Tidal Volume 520 Setting Ventilator Tidal Volume 520 Setting Ventilator Tidal Volume 520 Setting Ventilator Tidal Volume 520 Setting Ventilator Tidal Volume 520 Setting Ventilator Tidal Volume 520 Setting Ventilator Respiratory Rate 18 Setting Ventilator Respiratory Rate 18 Setting Ventilator Respiratory Rate 18 Setting Ventilator Respiratory Rate 18 Setting Ventilator Respiratory Rate 18 Setting Ventilator Respiratory Rate 18 Setting Ventilator Respiratory Rate 18 Setting Ventilator Respiratory Rate 18 Setting Ventilator Respiratory Rate 18 Setting Ventilator Respiratory Rate 18 Setting Ventilator Respiratory Rate 18 Setting Ventilator Respiratory Rate 18 Setting Actual Respiratory Rate 22 Actual Respiratory Rate 18 Actual Respiratory Rate 18 Actual Respiratory Rate 18 Actual Respiratory Rate 18 Actual Respiratory Rate 19 Actual Respiratory Rate 18 Actual Respiratory Rate 18 Actual Respiratory Rate 22 Actual Respiratory Rate 18 Actual Respiratory Rate 20 Positive End Expiratory 5 Pressure Positive End Expiratory 5 Pressure Positive End Expiratory 5 Pressure Positive End Expiratory 5 Pressure Positive End Expiratory 5 Pressure Positive End Expiratory 5 Pressure Positive End Expiratory 5 Pressure Positive End Expiratory 5 Pressure Positive End Expiratory 5 Pressure Positive End Expiratory 5 Pressure Positive End Expiratory 5 Pressure Positive End Expiratory 5 Pressure Peak Inspiratory Airway 14 Pressure Peak Inspiratory Airway 23 Pressure Peak Inspiratory Airway 24 Pressure Peak Inspiratory Airway 14 Pressure Results - Laboratory Findings CBC and BMP: 01/24/18 11:54 01/24/18 04:28 ABG ABG pH 7.38 pH Units (7.32-7.45) 01/24/18 04:16 ABG pCO2 45 mmHg (35-45) 01/24/18 04:16 ABG pO2 71 mmHg (85-104) L 01/24/18 04:16 ABG O2 Saturation 93 % (95-98) L 01/24/18 04:16 PT/INR, D-dimer PT 13.0 Seconds (9.4-12.1) H 01/24/18 04:00 Abnormal lab findings: Abnormal lab results WBC 26.8 K/mcL (4.3-11.1) H 01/24/18 04:28 Neutrophils # 22.9 K/mcL (1.6-8.9) H 01/24/18 04:28 Monocytes # 1.5 K/mcL (0.0-1.3) H 01/24/18 04:28 PT 13.0 Seconds (9.4-12.1) H 01/24/18 04:00 APTT 24.9 Seconds (26.0-36.0) L 01/23/18 15:20 ABG pO2 71 mmHg (85-104) L 01/24/18 04:16 ABG Total CO2 28 mEq/L (20-26) H 01/24/18 04:16 ABG O2 Saturation 93 % (95-98) L 01/24/18 04:16 Sodium 132 mEq/L (136-145) L 01/24/18 04:28 BUN 33 mg/dL (8-23) H 01/24/18 04:28 BUN/Creatinine Ratio 30 (6-26) H 01/24/18 04:28 Glucose 212 mg/dL (70-105) H 01/24/18 04:28 POC Glucose 183 mg/dL (70-99) H 01/24/18 06:18 Troponin I 5.99 ng/mL (< 0.04) H* 01/24/18 03:30 Serum Total Protein 6.0 g/dL (6.4-8.9) L 01/24/18 04:28 Albumin 3.1 g/dL (3.5-5.7) L 01/24/18 04:28 - Microbiology Findings Microbiology Findings: Microbiology, Last 48 Hours 01/23/18 18:49 Blood Culture - Preliminary Peripheral Venipuncture Culture is incubating and being continuously monitored for growth. Final report to follow. 01/23/18 18:49 Blood Culture - Preliminary Peripheral Venipuncture Culture is incubating and being continuously monitored for growth. Final report to follow. - Diagnostic Findings Chest x-ray: image reviewed CT scan - chest: image reviewed (bibasilar atelectasis, no pleural effusion) - Clinical Findings Intake & Output: Intake & Output 01/23/18 01/23/18 01/24/18 15:59 23:59 07:59 Intake Total 3330 / 5330 1567.5 / 1567.5 Output Total 1200 / 1200 600 / 600 Balance 2130 / 4130 967.5 / 967.5 Weight 140 kg Consult Discharge Plan - Plan Referrals: Izabela Sam, CNC MACHINIST [Primary Care Provider] - <Ellie Newell - Last Filed: 01/24/18 16:30> Date of Encounter: 01/24/18 All Systems: The remainder of the systems were reviewed and are negative Physical Examination Vital Signs: Vital Signs, Last 4 Hours Temp Pulse Resp BP Pulse Ox 01/24/18 09:00 108 20 113/80 94 01/24/18 08:00 111 24 112/87 94 01/24/18 07:49 98.7 F 01/24/18 07:43 21 80/66 96 01/24/18 07:20 100 01/24/18 07:00 98 22 107/90 100 Ventilator Settings Ventilator Settings: Ventilator Settings, Last 8 Hours Ventilator Tidal Volume 520 Setting Ventilator Tidal Volume 520 Setting Ventilator Tidal Volume 520 Setting Ventilator Tidal Volume 520 Setting Ventilator Tidal Volume 520 Setting Ventilator Tidal Volume 520 Setting Ventilator Tidal Volume 520 Setting Ventilator Tidal Volume 520 Setting Ventilator Respiratory Rate 18 Setting Ventilator Respiratory Rate 18 Setting Ventilator Respiratory Rate 18 Setting Ventilator Respiratory Rate 18 Setting Ventilator Respiratory Rate 18 Setting Ventilator Respiratory Rate 18 Setting Ventilator Respiratory Rate 18 Setting Ventilator Respiratory Rate 18 Setting Actual Respiratory Rate 22 Actual Respiratory Rate 18 Actual Respiratory Rate 18 Actual Respiratory Rate 18 Actual Respiratory Rate 18 Actual Respiratory Rate 19 Actual Respiratory Rate 18 Positive End Expiratory 5 Pressure Positive End Expiratory 5 Pressure Positive End Expiratory 5 Pressure Positive End Expiratory 5 Pressure Positive End Expiratory 5 Pressure Positive End Expiratory 5 Pressure Positive End Expiratory 5 Pressure Positive End Expiratory 5 Pressure Peak Inspiratory Airway 14 Pressure Peak Inspiratory Airway 23 Pressure Peak Inspiratory Airway 24 Pressure Results - Laboratory Findings CBC and BMP: 01/24/18 11:54 01/24/18 04:28 ABG ABG pH 7.38 pH Units (7.32-7.45) 01/24/18 04:16 ABG pCO2 45 mmHg (35-45) 01/24/18 04:16 ABG pO2 71 mmHg (85-104) L 01/24/18 04:16 ABG O2 Saturation 93 % (95-98) L 01/24/18 04:16 PT/INR, D-dimer PT 13.0 Seconds (9.4-12.1) H 01/24/18 04:00 Abnormal lab findings: Abnormal lab results WBC 26.8 K/mcL (4.3-11.1) H 01/24/18 04:28 Neutrophils # 22.9 K/mcL (1.6-8.9) H 01/24/18 04:28 Monocytes # 1.5 K/mcL (0.0-1.3) H 01/24/18 04:28 PT 13.0 Seconds (9.4-12.1) H 01/24/18 04:00 APTT 24.9 Seconds (26.0-36.0) L 01/23/18 15:20 ABG pO2 71 mmHg (85-104) L 01/24/18 04:16 ABG Total CO2 28 mEq/L (20-26) H 01/24/18 04:16 ABG O2 Saturation 93 % (95-98) L 01/24/18 04:16 Sodium 132 mEq/L (136-145) L 01/24/18 04:28 BUN 33 mg/dL (8-23) H 01/24/18 04:28 BUN/Creatinine Ratio 30 (6-26) H 01/24/18 04:28 Glucose 212 mg/dL (70-105) H 01/24/18 04:28 POC Glucose 183 mg/dL (70-99) H 01/24/18 06:18 Troponin I 5.99 ng/mL (< 0.04) H* 01/24/18 03:30 Serum Total Protein 6.0 g/dL (6.4-8.9) L 01/24/18 04:28 Albumin 3.1 g/dL (3.5-5.7) L 01/24/18 04:28 - Microbiology Findings Microbiology Findings: Microbiology, Last 48 Hours 01/23/18 18:49 Blood Culture - Preliminary Peripheral Venipuncture Culture is incubating and being continuously monitored for growth. Final report to follow. 01/23/18 18:49 Blood Culture - Preliminary Peripheral Venipuncture Culture is incubating and being continuously monitored for growth. Final report to follow. - Clinical Findings Intake & Output: Intake & Output 01/23/18 01/24/18 01/24/18 23:59 07:59 15:59 Intake Total 3330 / 5330 2006.0 / 2006.0 0 / 0 Output Total 1200 / 1200 950 / 950 Balance 2130 / 4130 1056.0 / 1056.0 0 / 0 Weight 140 kg - Attending Attestation I examined this patient and my medical decision-making was reviewed with the Resident Physician. I agree with the documented findings, disposition and treatment plan as described except to the extent set forth below. Patient seen and examined. Labs, radiology, chart personally reviewed. Agree with resident's history and physical, assessment, plan with following comments: SUPERVISING ARCHITECT: Patient follows commands, Pulmonary: Acceptable oxygenation and ventilation. Patient was extubated successfully. Cardiovascular: stable GI: Nutrition per dietary and GI prophylaxis per routine. Discussed with surgeon and there is no evidence of acute bleeding during endoscopy. Heme: DVT prophylaxis per routine ID: Continue antibiotics and plan to de-escalation Renal; urine out put and renal funtion reviewed Endorcine: blood glucose is monitored Lines: all lines checked and no evidence of infections Skin: skin care to prevent pressure ulcers per nursing routine care
[2018-01-24] MEDS: Chlorhexidine Rinse 15 ML MOUTHWASH MM SCH (07:48)
[2018-01-24] MEDS ORDERED: diazePAM 10 MG/2 ML SYRINGE IVP PRN ×2 (08:52→09:04)
[2018-01-24] MEDS ORDERED: *HR* LORazepam 2 MG/ML VIAL IVP SCH (10:00)
[2018-01-24 12:04] LABS: Hematocrit 36.7 % (37.5-50.1); Hemoglobin 11.9 g/dL (12.9-16.9)
--- NOTE | 2018-01-24 12:10 | Cardiology Consult Note ---
Date of Encounter: 01/24/18 Time of Encounter: 12:08 Assessment and Plan (1) Upper GI bleed Current Visit: Yes Status: Acute Per cardiology: -Admitted with acute upper GI bleed. -Hemoglobin 01/11/18 15.1, was 12 on admission. Was transfused with 4units PRBC, increased to 14.5, now down trending to 11.9. -Management per primary service. (2) CAD (coronary artery disease) Current Visit: No Status: Chronic Per cardiology: -Known CAD s/p PCI with ADELA to PDA 06/2017. -Last C 11/2017 with 20% mid LAD, 30% diagonal 1, 20% mid circumflex, ramus angiographically free of disease, 30% mid RCA, PDA with patent stent. Of note, was noted to have vasospasm and was given IC nitro. -Not currently receiving dual anti-platelet therapy due to acute GI bleed, on asa and plavix in outpatient setting. Also on statin, BB, CCB, and imdur, currently on hold due to GI bleed. -Patient denies chest pain. -Recommend resuming dual anti-platelet therapy when stable from GI bleed. Qualifiers: Coronary Disease-Associated Artery/Lesion type: [place] artery [place] vs. transplanted heart: [place] heart Associated angina: without angina Qualified Code(s): I25.10 - Atherosclerotic heart disease of [place] coronary artery without angina pectoris (3) Elevated troponin Current Visit: Yes Status: Acute Per cardiology: -Troponins 7, 6.06, 5.99 in the setting of acute GI bleed, leukocytosis. Of note , appears to have chronically elevated troponins since 06/2017. -Denies chest pain. -ECG with no acute ischemic changes. -11/2017 TTE with LVEF 60-65%, moderate diastolic dysfunction, no segmental wall motion abnormalities noted. -Previously diagnosed with vasospastic angina and in outpatient setting had been on CCB, and imdur. -Do not suspect NSTEMI. Troponins chronically elevated since 06/2017. No cardiac rehab consult warranted. Discussion w patient/family: The assessment and plan as outlined above was discussed with the patient who expressed understanding and agreement. All questions were answered. Thank you for involving us in the care of your patient. Please call with any questions. Discussed and reviewed with . History of Present Illness Consult date: 01/24/18 Requesting physician: Cyn Odom Consult reason: elevated troponin Chief complaint: hematemesis History of present illness: Mr. Burch is a 62 year old male with a relevant past medical history of DM, HTN , anxiety, depression, HLD, obesity, tobacco abuse, [place], CAD s/p PCI 06/2017 who presented to [facility] with complaints of hematemesis. Patient was intubated. Patient received 4units PRBC. Currently extubated. Patient denies chest pain. Reports some shortness of breath. Denies recent hematemesis. Past Med Surg Social Fam HX - Past Medical History Attestation: Yes The following information was validated with the patient. Source: patient, old records reviewed Medical history: arthritis, coronary artery disease, diabetes, hyperlipidemia, kidney stones, myocardial infarction Additional medical history: knee replacement Psychiatric history: depression - Past Surgical History Surgical History: angioplasty/stent, cholecystectomy Additional surgical history: heart stent x1 (2017), left knee replacement - Social History Smoking Status: Current every day smoker Smokeless Tobacco Status: No Alcohol use: none Drug use: none - Family History Father Hx Family Cancer: Yes Hx Family Endocrine Disorder: Yes (kidney replacement) Sister Hx Family Endocrine Disorder: Yes (DM) Medications and Allergies Glimepiride [Amaryl] 2 mg PO DAILY 07/14/17 [History] Oxycodone HCl 15 mg PO 5XD 07/14/17 [History] Sertraline [Zoloft] 200 mg PO DAILY 07/14/17 [History] Tizanidine HCl 4 mg PO TID PRN 07/14/17 [History] diazePAM [Valium] 5 mg PO BID 07/14/17 [History] Aspirin 81 mg PO DAILY #30 tab.chew 07/16/17 [Rx] Clopidogrel [Plavix] 75 mg PO DAILY 12/10/17 [History] DULoxetine [Cymbalta] 20 mg PO BID 12/10/17 [History] Lisinopril [Zestril] 2.5 mg PO DAILY #30 tablet 12/11/17 [Rx] Metoprolol [Lopressor] 12.5 mg PO BID #60 tablet 12/11/17 [Rx] Albuterol Sulfate [Albuterol Inhaler] 2 puff IH Q6H PRN 01/08/18 [History] Metformin HCl 1,000 mg PO DAILY 01/08/18 [History] Tiotropium [place] [Spiriva Respimat] 2 puff IH DAILY 01/08/18 [History] Diltiazem CD (24hr) [Cardizem CD] 120 mg PO DAILY 30 Days #30 cap.er.24h [Rx] Isosorbide MONOnitrate (24 HR) [Imdur] 30 mg PO DAILY 30 Days #30 tab.er.24h [Rx] Ondansetron HCl [Zofran] 4 mg PO Q8HR PRN 01/23/18 [History] 3 Allergy/AdvReac Type Severity Reaction Status Date / Time No Known Allergies Allergy Verified 01/08/18 10:56 All Systems Review: The remainder of the systems were reviewed and are negative - Cardiovascular Cardiovascular: as per HPI - Gastrointestinal Gastrointestinal: hematemesis Physical Examination Vital Signs, Last 4 Hours Pulse Resp BP Pulse Ox 01/24/18 12:00 101 20 100/49 96 01/24/18 11:00 100 18 115/70 93 01/24/18 09:00 108 20 113/80 94 General: Conversant, Other (Lethargic) HEENT: Atraumatic, Normocephaly, Mucus Membranes Moist Neck: No JVD, Normal carotid pulses Cardiac: Reg Rate and Rhythm, Normal S1 and S2, No Murmur Lungs: Other (Lung sounds with expiratory wheezes noted. ) Neuro: Alert and responsive, Other (Oriented to person and place) Abdomen: Soft, Non-Tender Skin: No rashes noted on visualized skin Musculoskeletal: No Chest Wall Tenderness Extremities: No Clubbing, No Cyanosis, No Edema, Normal Pulses Results 01/24/18 11:54 01/24/18 04:28 Lab Results Impressions Chest X-Ray 01/23/18 15:15 IMPRESSION: 1. Interval placement of ET tube and NG tube. Distal end of NG tube not shown. 2. Widening of the mediastinum new compared to prior. This is probably due to the exam technique. CT scan may be considered for confirmation or exclusion. 3. The findings were sent to the Radiology Results Communication Center at 3:44 pm on 01/23/2018to be communicated to a licensed caregiver. D/ / Sarthak Kent MD / Sarthak Kent MD Interpreting Provider: Sarthak Kent MD Abdomen/Pelvis CTA 01/23/18 15:32 IMPRESSION: 1. No evidence of aortic dissection. 2. Bibasilar atelectasis. 3. Endotracheal tube tip to the level of the ramakrishna directed into the right mainstem bronchus. 4. Well-positioned enteric tube with heterogeneous material in the stomach compatible with blood products. No evidence of active extravasation. 5. Hepatic steatosis. 6. Stable benign right adrenal adenoma. Findings were discussed with Lance Jarrell at 4:39 pm on 01/23/2018. D/ / Raghav Johnson / Raghav Johnson Interpreting Provider: Raghav Johnson Chest CTA 01/23/18 15:32 IMPRESSION: 1. No evidence of aortic dissection. 2. Bibasilar atelectasis. 3. Endotracheal tube tip to the level of the ramakrishna directed into the right mainstem bronchus. 4. Well-positioned enteric tube with heterogeneous material in the stomach compatible with blood products. No evidence of active extravasation. 5. Hepatic steatosis. 6. Stable benign right adrenal adenoma. Findings were discussed with Lance Jarrell at 4:39 pm on 01/23/2018. D/ / Raghav Johnson / Raghav Johnson Interpreting Provider: Raghav Johnson Head CT 01/23/18 15:33 IMPRESSION: No acute intracranial abnormality. Chronic small vessel ischemic white matter disease. Fluid within the nasal cavity and posterior nasopharynx. Clinical correlation is recommended. D/ / 01/23/2018 16:32:01 Maxime Peters MD / [email or web address] Interpreting Provider: Maxime Peters MD Chest X-Ray 01/23/18 17:40 IMPRESSION: Tip of the left IJ central venous catheter projects over the proximal SVC. No evidence of pneumothorax. Tip of the endotracheal tube is 6.6 cm above the ramakrishna. No focal consolidation or significant pleural effusion. D/ / 01/23/2018 18:51:07 Maxime Peters MD / [email or web address] Interpreting Provider: Maxime Peters MD KUB X-Ray 01/23/18 19:32 IMPRESSION: 1. Tip of the orogastric tube is within the stomach. Distended stomach. 2. Visualized bowel gas pattern is nonspecific. D/ / 01/23/2018 20:43:53 Maxime Peters MD / eberry Interpreting Provider: Maxime Peters MD Active Medications Albuterol/Ipratropium (Duoneb) 3 ml IH [id number] PRN PRN Reason: Shortness Of Breath/Wheezing Stop: 07/25/18 17:35 Artificial Tears (Lacri-Lube) 1 appl BOTH EYES Q4HR EDGAR PRN Reason: Protocol Stop: 07/25/18 20:01 Last Admin: 01/24/18 10:11 Dose: Not Given Artificial Tears (Lacri-Lube) 1 appl BOTH EYES Q2HR PRN; Protocol PRN Reason: Dry Eyes Stop: 07/25/18 18:26 Chlorhexidine Gluconate (Chlorhexidine Rinse) 15 ml MM BID EDGAR Stop: 07/25/18 21:01 Last Admin: 01/24/18 07:48 Dose: Not Given Dextrose/Water (Dextrose 50% (Syg)) 25 ml IVP AD PRN PRN Reason: Hypoglycemia Stop: 07/25/18 17:45 Diazepam (Valium) 2.5 mg IVP Q8HR PRN PRN Reason: Anxiety Stop: 07/26/18 08:53 Glucagon (Glucagen) 1 mg IM ONCE PRN PRN Reason: Hypoglycemia Stop: 07/25/18 17:45 Glucose (Gluctose) 15 gm PO ONCE PRN PRN Reason: Hypoglycemia Stop: 07/25/18 17:45 Glucose (Gluctose) 30 gm PO ONCE PRN PRN Reason: Hypoglycemia Stop: 07/25/18 17:45 Pantoprazole Sodium 40 mg/ (Sodium Chloride) 100 mls @ 20 mls/hr IVC .Q5H EDGAR Stop: 07/25/18 15:31 Last Admin: 01/24/18 11:16 Dose: 20 mls/hr Dextrose (Dextrose 5%) 1,000 mls @ 100 mls/hr IVC .Q10H PRN PRN Reason: HYPOGLYCEMIA Stop: 07/25/18 17:45 Propofol (Diprivan) 1,000 mg in 100 mls @ 4.241 mls/hr IVC .[id number] EDGAR; 5 MCG/ KG/MIN PRN Reason: Protocol Stop: 07/25/18 17:01 Last Titration: 01/24/18 07:49 Dose: Infused Octreotide Acetate 400 mcg/ (Sodium Chloride) 104 mls @ 13 mls/hr IVC .Q8H EDGAR PRN Reason: 50 MCG/HR Stop: 07/26/18 02:01 Last Admin: 01/24/18 10:10 Dose: Not Given Insulin Human Lispro (Humalog) 0 units SQ Q6HR EDGAR PRN Reason: Protocol Stop: 07/25/18 18:01 Last Admin: 01/24/18 11:37 Dose: 4 units Naloxone HCl (Narcan) 0.4 mg IVP Q2MIN PRN PRN Reason: SEE COMMENTS Stop: 07/25/18 17:28 Laboratory Tests 01/08/18 01/08/18 01/08/18 09:51 15:43 21:21 WBC Hgb Creatinine Troponin I 8.09 H* 8.42 H* 9.82 H* 01/09/18 01/11/18 01/23/18 06:22 08:08 15:20 WBC 30.8 H* Hgb 15.1 12.0 L Creatinine Troponin I 9.12 H* 01/23/18 01/23/18 01/23/18 15:30 18:21 18:21 WBC Hgb 14.5 D Creatinine Troponin I 7.00 H* 6.08 H* 01/24/18 01/24/18 01/24/18 03:30 04:28 04:28 WBC 26.8 H Hgb 13.2 Creatinine 1.09 Troponin I 5.99 H* 01/24/18 11:54 WBC Hgb 11.9 L Creatinine Troponin I - Imaging and Cardiology Chest Xray: report reviewed Echo: report reviewed Cardiac cath: report reviewed - EKG Interpretation EKG results cardiology: personally reviewed (ECG with SR, RBBB, HR 90.), other ( Telemetry reviewed with average HR previous 12 hours noted to be 101, ST. PVCs.) Consult Discharge Plan - Plan Referrals: Izabela Sam, HOLLY [Primary Care Provider] -
--- NOTE | 2018-01-24 13:07 | General Surgery Consult Note ---
Date of Encounter: 01/23/18 Time of Encounter: 17:56 Assessment and Plan (1) Upper GI bleed Current Visit: Yes Status: Acute Will obtain family consented to proceed with an EGD at the bedside in the ICU. History of Present Illness Consult date: 01/23/18 Reason for consult: other (Hematemesis) Requesting physician: Lance Jarrell History of present illness: Of note, the date of this encounter is 01/23/2018. Patient is a 62-year-old male with a past medical history significant for coronary artery disease, arthritis, diabetes mellitus who was at home and started to have hematemesis report. He was referred to [facility] hypotensive and was able to answer questions but was somnolent. Because of his hypertensive status and hematemesis he was electively intubated and resuscitation efforts were initiated. The patient is on Plavix secondary to nonobstructive coronary artery disease and spasm. His lab for study shows a hemoglobin of 12 and troponin of 7 and BUN/creatinine elevation. White count is 30,000. CT scan of the chest was performed due to chest x-ray showing a wide mediastinum. There is no evidence of dissection but there was evidence of debris within the stomach that was consistent with his hematemesis. There is no evidence of ulcer formation or free air and since the CT scan was performed with IV contrast there is no evidence of active bleed within the stomach or source for the GI bleed. Past Med Surg Social Fam HX - Past Medical History Medical history: arthritis, coronary artery disease, diabetes, hyperlipidemia, kidney stones, myocardial infarction Additional medical history: knee replacement Psychiatric history: depression - Past Surgical History Surgical History: angioplasty/stent, cholecystectomy Additional surgical history: heart stent x1 (2018), left knee replacement - Social History Smoking Status: Current every day smoker Smokeless Tobacco Status: No Alcohol use: none Drug use: none - Family History Father Hx Family Cancer: Yes Hx Family Endocrine Disorder: Yes (kidney replacement) Sister Hx Family Endocrine Disorder: Yes (DM) Medications and Allergies Glimepiride [Amaryl] 2 mg PO DAILY 07/14/17 [History] Oxycodone HCl 15 mg PO 5XD 07/14/17 [History] Sertraline [Zoloft] 200 mg PO DAILY 07/14/17 [History] Tizanidine HCl 4 mg PO TID PRN 07/14/17 [History] diazePAM [Valium] 5 mg PO BID 07/14/17 [History] Aspirin 81 mg PO DAILY #30 tab.chew 07/16/17 [Rx] Clopidogrel [Plavix] 75 mg PO DAILY 12/10/17 [History] DULoxetine [Cymbalta] 20 mg PO BID 12/10/17 [History] Lisinopril [Zestril] 2.5 mg PO DAILY #30 tablet 12/11/17 [Rx] Metoprolol [Lopressor] 12.5 mg PO BID #60 tablet 12/11/17 [Rx] Albuterol Sulfate [Albuterol Inhaler] 2 puff IH Q6H PRN 01/08/18 [History] Metformin HCl 1,000 mg PO DAILY 01/08/18 [History] Tiotropium [place] [Spiriva Respimat] 2 puff IH DAILY 01/08/18 [History] Diltiazem CD (24hr) [Cardizem CD] 120 mg PO DAILY 30 Days #30 cap.er.24h [Rx] Isosorbide MONOnitrate (24 HR) [Imdur] 30 mg PO DAILY 30 Days #30 tab.er.24h [Rx] Ondansetron HCl [Zofran] 4 mg PO Q8HR PRN 01/23/18 [History] 3 Allergy/AdvReac Type Severity Reaction Status Date / Time No Known Allergies Allergy Verified 01/08/18 10:56 Review of Systems ROS unobtainable: due to endotracheal tube All systems PM: reviewed and no additional remarkable complaints except as stated All systems PM: The remainder of the systems were reviewed and are negative General Surgery Exam Initial Vital Signs Temp Pulse Resp BP Pulse Ox 97.5 F L 90 18 99/65 97 01/23/18 14:37 01/23/18 14:37 01/23/18 14:37 01/23/18 14:37 01/23/18 14:37 - Eyes PERRL - Neck trachea midline, no lymphadectomy - Respiratory other (Positive rhonchi bilaterally) - Cardiovascular Cardiovascular exam: Present: tachycardia (Mild tachycardia, no murmurs Or rubs. ) - Abdomen Abdomen general surgery: Present: soft (Obese, soft, no masses palpated. Scant bowel sounds.) - Neurologic Present: other (patient intubated) - Musculoskeletal Present: other (No clubbing, cyanosis, or edema) - Psychiatric Psychiatric general surgery: Present: other (patient intubated) Exam Initial Vital Signs Temp Pulse Resp BP Pulse Ox 97.5 F L 90 18 99/65 97 01/23/18 14:37 01/23/18 14:37 01/23/18 14:37 01/23/18 14:37 01/23/18 14:37 Results - Labs 01/24/18 11:54 01/24/18 04:28 Abnormal lab results WBC 26.8 K/mcL (4.3-11.1) H 01/24/18 04:28 Hgb 11.9 g/dL (12.9-16.9) L 01/24/18 11:54 Hct 36.7 % (37.5-50.1) L 01/24/18 11:54 Neutrophils # 22.9 K/mcL (1.6-8.9) H 01/24/18 04:28 Monocytes # 1.5 K/mcL (0.0-1.3) H 01/24/18 04:28 PT 13.0 Seconds (9.4-12.1) H 01/24/18 04:00 APTT 24.9 Seconds (26.0-36.0) L 01/23/18 15:20 ABG pO2 71 mmHg (85-104) L 01/24/18 04:16 ABG Total CO2 28 mEq/L (20-26) H 01/24/18 04:16 ABG O2 Saturation 93 % (95-98) L 01/24/18 04:16 Sodium 132 mEq/L (136-145) L 01/24/18 04:28 BUN 33 mg/dL (8-23) H 01/24/18 04:28 BUN/Creatinine Ratio 30 (6-26) H 01/24/18 04:28 Glucose 212 mg/dL (70-105) H 01/24/18 04:28 POC Glucose 172 mg/dL (70-99) H 01/24/18 11:25 Troponin I 5.99 ng/mL (< 0.04) H* 01/24/18 03:30 Serum Total Protein 6.0 g/dL (6.4-8.9) L 01/24/18 04:28 Albumin 3.1 g/dL (3.5-5.7) L 01/24/18 04:28 Diabetes panel 01/23/18 01/24/18 Range/Units 23:39 04:28 Sodium 133 L 132 L (136-145) mEq/L Potassium 5.0 5.1 (3.5-5.1) mEq/L Chloride 101 101 (98-107) mEq/L Carbon Dioxide 25 24 (23-29) mEq/L BUN 38 H 33 H (8-23) mg/dL Creatinine 1.17 1.09 (0.70-1.30) mg/dL Glucose 160 H 212 H (70-105) mg/dL Calcium 8.8 8.8 (8.6-10.3) mg/dL AST 19 (13-39) Units/L ALT 13 (7-52) Units/L Alkaline Phosphatase 59 (34-104) Units/L Albumin 3.1 L (3.5-5.7) g/dL Calcium panel 01/23/18 01/24/18 Range/Units 23:39 04:28 Calcium 8.8 8.8 (8.6-10.3) mg/dL Albumin 3.1 L (3.5-5.7) g/dL Pituitary panel 01/23/18 01/24/18 Range/Units 23:39 04:28 Sodium 133 L 132 L (136-145) mEq/L Potassium 5.0 5.1 (3.5-5.1) mEq/L Chloride 101 101 (98-107) mEq/L Carbon Dioxide 25 24 (23-29) mEq/L BUN 38 H 33 H (8-23) mg/dL Creatinine 1.17 1.09 (0.70-1.30) mg/dL Glucose 160 H 212 H (70-105) mg/dL Calcium 8.8 8.8 (8.6-10.3) mg/dL Adrenal panel 01/23/18 01/24/18 Range/Units 23:39 04:28 Sodium 133 L 132 L (136-145) mEq/L Potassium 5.0 5.1 (3.5-5.1) mEq/L Chloride 101 101 (98-107) mEq/L Carbon Dioxide 25 24 (23-29) mEq/L BUN 38 H 33 H (8-23) mg/dL Creatinine 1.17 1.09 (0.70-1.30) mg/dL Glucose 160 H 212 H (70-105) mg/dL Calcium 8.8 8.8 (8.6-10.3) mg/dL Total Bilirubin 0.7 (0.3-1.0) mg/dL AST 19 (13-39) Units/L ALT 13 (7-52) Units/L Alkaline Phosphatase 59 (34-104) Units/L Albumin 3.1 L (3.5-5.7) g/dL All other labs normal. - Imaging Chest x-ray: report reviewed (Noted widened mediastinum.), image reviewed ( Noted widened mediastinum.) CT scan - abdomen: report reviewed, image reviewed (Debris within stomach consistent with hematoma. No contrasted within the stomach i.e. no evidence of active bleed. No injury abdominal mass or fluid collection. No signs of perforation) Consult Discharge Plan - Plan Referrals: Izabela Sam, WOMEN DESIGNER [Primary Care Provider] -
--- NOTE | 2018-01-24 13:15 | General Surgery Progress Note ---
Date of Encounter: 01/24/18 Time of Encounter: 13:14 - Assessment and Plan (1) Upper GI bleed Current Visit: Yes Status: Acute Is been expected that the patient would have some dark-colored stool given his episodes of hematemesis requiring intubation and EGD yesterday. He will likely have several bowel movements and will be dark in color for some time. His hemoglobin did decrease slightly however he has had several liters of IV fluid during the past 24 hours. A majority of this is dilutional and there is no evidence of active bleeding. Okay to have the gastric tube removed and can add full liquids and advance as tolerated. Gastric biopsy results pending. Will follow from a distance. Subjective Patient reports: no new complaints, other (Patient resting. Noted dark stools) Objective Vital Signs - Last 8 Hours Temp Pulse Resp BP Pulse Ox 01/24/18 13:00 98 20 107/85 96 01/24/18 12:00 101 20 100/49 96 01/24/18 11:00 100 18 115/70 93 01/24/18 09:00 108 20 113/80 94 01/24/18 08:00 111 24 112/87 94 01/24/18 07:49 98.7 F 01/24/18 07:43 21 80/66 96 01/24/18 07:20 100 01/24/18 07:00 98 22 107/90 100 01/24/18 06:00 98 18 96/75 97 01/24/18 05:30 18 95 Intake and Output 01/23/18 01/24/18 01/24/18 23:59 07:59 15:59 Intake Total 3330 / 5330 2005.0 100 / 100 Output Total 1200 / 1200 950 / 950 Balance 2130 / 4130 1056.0 / 1056.0 100 / 100 Intake: IV Fluids 910 / 910 2005.0 100 / 100 SandoSTATIN 400 MCG In 0.9 % 10 / 10 Sodium Chloride 100 ML @ 50 MCG /HR 13 mls/hr IVC .Q8H EDGAR Rx#: [id number] Protonix 40 MG In 0.9 % Sodium 100 / 100 200 / 200 100 / 100 Chloride (Mini-Bag +) 100 ML @ 20 mls/hr IVC .Q5H EDGAR Rx#: [id number] Diprivan 1,000 mg In 100 ml @ 5 373.0 / 373.0 MCG/KG/MIN 4.241 mls/hr IVC . [id number] [facility] Rx#:[id number] Diprivan 1,000 mg In 100 ml @ 5 100 / 100 MCG/KG/MIN 4.241 mls/hr IVC . [id number] [facility] Rx#:[id number] Lactated Ringers 1,000 ML @ 150 1423 / 1423 mls/hr IVC .Q6H40M [facility] Rx#: [id number] Calcium Gluconate 1,000 MG In 0 110 / 110 .9 % Sodium Chloride 100 ML @ 220 mls/hr IVPB ONCE ONE Rx#: [id number] Zosyn 3.375 GM In 0.9 % Sodium 100 / 100 Chloride (Mini-Bag +) 100 ML @ 25 mls/hr IVPB ONCE ONE Rx#: [id number] Vancocin 2,000 MG In 0.9 % 500 / 500 Sodium Chloride 500 ML @ 250 mls/hr IVPB ONCE ONE Rx#: [id number] Oral 20 / 20 0 / 0 0 / 0 Blood Product 2400 / 2400 Rbcs Leuko Poor As-1 Unit 600 / 600 [id number] Rbcs Leuko Poor As-1 Unit 600 / 600 [id number] Rbcs Leuko Poor As-1 Unit 600 / 600 [id number] Rbcs Leuko Poor As-1 Unit 600 / 600 [id number] Output: Catheter 900 / 900 950 / 950 Gastric Drainage 300 / 300 0 / 0 Other: Weight 140 kg Blood Glucose* 196 183 - General physical appearance well nourished, no distress - Labs 01/24/18 11:54 01/24/18 04:28 Diabetes panel 01/23/18 01/24/18 Range/Units 23:39 04:28 Sodium 133 L 132 L (136-145) mEq/L Potassium 5.0 5.1 (3.5-5.1) mEq/L Chloride 101 101 (98-107) mEq/L Carbon Dioxide 25 24 (23-29) mEq/L BUN 38 H 33 H (8-23) mg/dL Creatinine 1.17 1.09 (0.70-1.30) mg/dL Glucose 160 H 212 H (70-105) mg/dL Calcium 8.8 8.8 (8.6-10.3) mg/dL AST 19 (13-39) Units/L ALT 13 (7-52) Units/L Alkaline Phosphatase 59 (34-104) Units/L Albumin 3.1 L (3.5-5.7) g/dL Calcium panel 01/23/18 01/24/18 Range/Units 23:39 04:28 Calcium 8.8 8.8 (8.6-10.3) mg/dL Albumin 3.1 L (3.5-5.7) g/dL Pituitary panel 01/23/18 01/24/18 Range/Units 23:39 04:28 Sodium 133 L 132 L (136-145) mEq/L Potassium 5.0 5.1 (3.5-5.1) mEq/L Chloride 101 101 (98-107) mEq/L Carbon Dioxide 25 24 (23-29) mEq/L BUN 38 H 33 H (8-23) mg/dL Creatinine 1.17 1.09 (0.70-1.30) mg/dL Glucose 160 H 212 H (70-105) mg/dL Calcium 8.8 8.8 (8.6-10.3) mg/dL Adrenal panel 01/23/18 01/24/18 Range/Units 23:39 04:28 Sodium 133 L 132 L (136-145) mEq/L Potassium 5.0 5.1 (3.5-5.1) mEq/L Chloride 101 101 (98-107) mEq/L Carbon Dioxide 25 24 (23-29) mEq/L BUN 38 H 33 H (8-23) mg/dL Creatinine 1.17 1.09 (0.70-1.30) mg/dL Glucose 160 H 212 H (70-105) mg/dL Calcium 8.8 8.8 (8.6-10.3) mg/dL Total Bilirubin 0.7 (0.3-1.0) mg/dL AST 19 (13-39) Units/L ALT 13 (7-52) Units/L Alkaline Phosphatase 59 (34-104) Units/L Albumin 3.1 L (3.5-5.7) g/dL - VTE Reasons for not Prescribing Prophylaxis: Medical contraindication Documentation of Mechanical Device: Intermittent pneumatic compression device Consult Discharge Plan - Plan Referrals: Izabela Sam, POWER SUPPLY ENGINEER [Primary Care Provider] -
[2018-01-24] MEDS ORDERED: *HR* OxyCODONE Immed Rel 5 MG TABLET PO PRN (15:06)
[2018-01-24] MEDS: Aspirin Enteric Coated 81 MG Tablet PO SCH (15:21)
--- NOTE | 2018-01-24 17:24 | Electrocardiograph Report ---
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
[2018-01-24] MEDS ORDERED: diazePAM 5 MG TABLET PO PRN (17:41)
[2018-01-24] MEDS ORDERED: *HR* OxyCODONE Immed Rel 5 MG TABLET PO ONE (17:47)
[2018-01-24] MEDS ORDERED: *HR* OxyCODONE Immed Rel 15 MG TABLET PO SCH (18:00)
[2018-01-24] MEDS: *HR* OxyCODONE Immed Rel 5 MG TABLET PO PRN (19:56)
[2018-01-25] MEDS: *HR* OxyCODONE Immed Rel 5 MG TABLET PO PRN ×3 (00:09→08:36)
[2018-01-25] MEDS: Insulin LISPRO 300 UNITS/3 ML VIAL SQ SCH ×4 (00:13→17:08)
[2018-01-25 02:29] LABS: Acinetobacter baumannii by PCR Not Detected (Not Detect); Candida albicans by PCR Not Detected (Not Detect); Candida glabrata by PCR Not Detected (Not Detect); Candida krusei by PCR Not Detected (Not Detect); Candida parapsilosis by PCR Not Detected (Not Detect); Candida tropicalis by PCR Not Detected (Not Detect); Enterococcus by PCR Not Detected (Not Detect); Escherichia coli by PCR Not Detected (Not Detect); Klebsiella oxytoca by PCR Not Detected (Not Detect); Klebsiella pneumoniae by PCR Not Detected (Not Detect); Pseudomonas aeruginosa by PCR Not Detected (Not Detect); Serratia marcescens by PCR Not Detected (Not Detect); Staphylococcus aureus by PCR Not Detected (Not Detect); Streptococcus agalactiae(B)PCR Not Detected (Not Detect); Streptococcus by PCR DETECTED (Not Detect); Streptococcus pneumoniae PCR Not Detected (Not Detect); Streptococcus pyogenes (A) PCR Not Detected (Not Detect)
[2018-01-25 04:48] LABS: Basophils # 0.1 K/mcL (0.0-0.2); Basophils % 0.4 %; Eosinophils % 0.3 %; Hematocrit 32.7 % (37.5-50.1); Immature Granulocytes % 0.5 % (0-4); Lymphocytes # 3.6 K/mcL (0.6-4.6); Lymphocytes % 24.4 %; Mean Corpuscular HGB Conc 33.6 g/dL (31.6-35.5); Mean Corpuscular Hemoglobin 29.1 pg (28.0-33.3); Mean Corpuscular Volume 86.5 fL (83.0-100.0); Mean Platelet Volume 9.6 fL (9.4-12.4); Monocytes # 1.3 K/mcL (0.0-1.3); Monocytes % 8.4 %; Neutrophils # 9.8 K/mcL (1.6-8.9); Platelet Count 188 K/mcL (140-400); Red Blood Count 3.78 M/mcL (4.19-5.50); Red Cell Distribution Width 14.3 % (11.5-14.5)
[2018-01-25 04:55] LABS: INR 1.1; Prothrombin Time 12.6 Seconds (9.4-12.1)
[2018-01-25 05:41] LABS: BUN/Creatinine Ratio 29 (6-26); Blood Urea Nitrogen 25 mg/dL (8-23); Calcium 8.7 mg/dL (8.6-10.3); Carbon Dioxide 29 mEq/L (23-29); Chloride 105 mEq/L (98-107); Glucose 134 mg/dL (70-105); Osmolality,Calculated 292 (280-300); Potassium 3.4 mEq/L (3.5-5.1); Sodium 138 mEq/L (136-145); eGFR For Non-African Americans > 60 (> 60)
[2018-01-25] MEDS: Aspirin Enteric Coated 81 MG Tablet PO SCH (07:52)
[2018-01-25] MEDS ORDERED: Pantoprazole 40 MG VIAL IVP SCH (09:00)
--- NOTE | 2018-01-25 09:25 | Pulmonology Progress Note ---
<ReeceEllie M - Last Filed: 01/25/18 10:39> Date of Encounter: 01/25/18 Objective PUL Vital signs: Last Vital Signs Temp 98.1 F 01/25/18 07:00 Pulse 92 01/25/18 09:00 Resp 20 01/25/18 09:00 BP 152/97 01/25/18 09:00 Pulse Ox 98 01/25/18 09:00 Results - Laboratory Findings CBC and BMP: 01/25/18 04:22 01/25/18 04:22 ABG ABG pH 7.38 pH Units (7.32-7.45) 01/24/18 04:16 ABG pCO2 45 mmHg (35-45) 01/24/18 04:16 ABG pO2 71 mmHg (85-104) L 01/24/18 04:16 ABG O2 Saturation 93 % (95-98) L 01/24/18 04:16 PT/INR, D-dimer PT 12.6 Seconds (9.4-12.1) H 01/25/18 04:22 Abnormal lab findings: Abnormal lab results WBC 14.9 K/mcL (4.3-11.1) H 01/25/18 04:22 RBC 3.78 M/mcL (4.19-5.50) L 01/25/18 04:22 Hgb 11.0 g/dL (12.9-16.9) L 01/25/18 04:22 Hct 32.7 % (37.5-50.1) L 01/25/18 04:22 Neutrophils # 9.8 K/mcL (1.6-8.9) H 01/25/18 04:22 PT 12.6 Seconds (9.4-12.1) H 01/25/18 04:22 APTT 24.9 Seconds (26.0-36.0) L 01/23/18 15:20 ABG pO2 71 mmHg (85-104) L 01/24/18 04:16 ABG Total CO2 28 mEq/L (20-26) H 01/24/18 04:16 ABG O2 Saturation 93 % (95-98) L 01/24/18 04:16 Potassium 3.4 mEq/L (3.5-5.1) L D 01/25/18 04:22 BUN 25 mg/dL (8-23) H 01/25/18 04:22 BUN/Creatinine Ratio 29 (6-26) H 01/25/18 04:22 Glucose 134 mg/dL (70-105) H 01/25/18 04:22 POC Glucose 151 mg/dL (70-99) H 01/25/18 00:03 Troponin I 5.99 ng/mL (< 0.04) H* 01/24/18 03:30 Serum Total Protein 6.0 g/dL (6.4-8.9) L 01/24/18 04:28 Albumin 3.1 g/dL (3.5-5.7) L 01/24/18 04:28 Streptococcus sp PCR DETECTED (Not Detect) A 01/23/18 18:49 - Microbiology Findings Microbiology Findings: Microbiology, Last 48 Hours 01/25/18 08:25 Blood Culture - Preliminary Peripheral Venipuncture Culture is incubating and being continuously monitored for growth. Final report to follow. 01/23/18 18:49 Blood Culture - Preliminary Peripheral Venipuncture Gram Positive Cocci - Chains 01/23/18 18:49 Blood Culture - Preliminary Peripheral Venipuncture Culture is incubating and being continuously monitored for growth. Final report to follow. - Clinical Findings Intake & Output: Intake & Output 01/24/18 01/25/18 01/25/18 23:59 07:59 15:59 Intake Total 420 / 420 Output Total 1650 / 1650 900 / 900 200 / 200 Balance -1650 / -1650 -480 / -480 -200 / -200 Weight 148 kg Consult Discharge Plan - Plan Referrals: Izabela Sam, HIM ANALYST [Primary Care Provider] - - Attending Attestation I examined this patient and my medical decision-making was reviewed with the Resident Physician. I agree with the documented findings, disposition and treatment plan as described except to the extent set forth below. Patient seen and examined. Labs, radiology, chart personally reviewed. 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 GI: Nutrition per dietary and GI prophylaxis per routine and surgery follow-up Heme: DVT prophylaxis per routine. H&H has been stable Patient remained hemodynamically stable and transferred to the floor. <Sari Kumar Last Filed: 01/25/18 13:16> Date of Encounter: 01/25/18 Time of Encounter: 09:24 Assessment and Plan (1) Shock Current Visit: Yes Status: Acute Likely secondary to hypovolemic shock from UGIB, less likely septic shock despite leukocytosis of 30.8 on admission. Hemoglobin on admission was 12 (BL 15), with large amount of hemetemesis reported at home and in the ED. Received 4 units of PRBCs, which brought hemoglobin up to 14.5, now 11 after 3.5L IVF. WBC downtrending, now 14.9 Received IV protonix drip and octreotide drip. Octreotide discontinued. EGD + for large clot in the cardia. No active bleed. No ulcers noted. Biopsies pending. Patient without recurrent hemtaemsis. Good appetite, tolerating full clears. Denies nausea. Continue IV Protonix daily. Hemoglobin of 11 likely dilutional, continue to monitor for possible rebleed. No clinical signs of rebleeding. Dark colored stools likely due to previous bleed. (2) Upper GI bleed Current Visit: Yes Status: Acute See above. Biopsy showed minimal chronic gastritis, inactive (near-normal), negative for dysplasia, negative for H. pylori. No new episodes of hematemesis. Continue to monitor hemoglobin Q6. Monitor bowel movements. Continue Protonix. (3) Elevated troponin Current Visit: Yes Status: Chronic Patient history of chronically elevated troponin. 9.82 at previous admission, 7.0 on admission, 5.99 now. No acute EKG changes present. Echo from 1 month ago with LVEF of 60-65% Cardio cleared patient to resume dual anti-platelet therapy once stable. Patient doing well today, stable for transfer. Aspirin resumed, Plavix still on hold for now. Patient denies chest pain. No cardiac rehab consult warranted. (4) Acute respiratory failure requiring reintubation Current Visit: Yes Status: Acute Intubated on admission for airway protection due to hematemesis. Patient was extubated yesterday. CT showed no evidence for pneumonia. ABG on admission consistent with hypoxemia and respiratory acidosis likely secondary to respiratory distress Patient 98% on RA. Denies SOB or chest pain. Admits to sore throat as a result of intubation. No new episodes of emesis. Stable for transfer. Supplemental O2 as needed. (5) Positive blood culture Current Visit: Yes Status: Acute 1/2 blood cultures tested positive for Strep. Patient clinically stable, afebrile and normotensive. Leukocytosis downtrending from 30.8 to 14.9 today. Repeat culture pending, likely contaminated specimen. No clinical suspicion for infection at this time. (6) ROSALIO (acute kidney injury) Current Visit: Yes Status: Resolved Creatinine on presentation was 1.78, likely secondary to prerenal cause. Patient received 2L of IVF and 4 units of PRBC Cr 0.87 today (7) Chronic back pain Current Visit: Yes Status: Chronic History of chronic back pain, on chronic oxycodone 15mg 5 times per day. Continue 10mg Oxycodone Q4 HR PRN pain Dulcolax PRN to prevent opioid induced constipation Qualifiers: Back pain location: low back pain Back pain laterality: unspecified Sciatica presence: without sciatica Qualified Code(s): M54.5 - Low back pain; G89.29 - Other chronic pain (8) Diabetes mellitus type 2 in obese Current Visit: No Status: Chronic Chronic, continue sliding scale insulin. (9) DVT prophylaxis Current Visit: Yes Status: Acute SCDs Aspirin has been resumed due to no evidence of active bleed. Plavix still on hold for now. Subjective Principal diagnosis: Hematemesis Interval history: No major events overnight. Patient reports 2 dark colored bowel movements. Denies recurrent hemetemesis, nausea, adbominal pain. Reports sore throat from intubation. Tolerating full clear diet well. Stable for transfer, signed out to Dr. Coombs, admitting hospitalist. Objective PUL Vital signs: Last Vital Signs Temp 98.1 F 01/25/18 07:00 Pulse 92 01/25/18 09:00 Resp 20 01/25/18 09:00 BP 152/97 01/25/18 09:00 Pulse Ox 98 01/25/18 09:00 General appearance: no acute distress, alert Eyes: nonicteric ENT: oropharynx moist Effort: normal Auscultation: bilateral: clear Cardiovascular: regular rate and rhythm Gastrointestinal: normoactive bowel sounds Extremities: no cyanosis, no edema normal mental status, pupils equal and round mood appropriate Results - Laboratory Findings CBC and BMP: 01/25/18 04:22 01/25/18 04:22 ABG ABG pH 7.38 pH Units (7.32-7.45) 01/24/18 04:16 ABG pCO2 45 mmHg (35-45) 01/24/18 04:16 ABG pO2 71 mmHg (85-104) L 01/24/18 04:16 ABG O2 Saturation 93 % (95-98) L 01/24/18 04:16 PT/INR, D-dimer PT 12.6 Seconds (9.4-12.1) H 01/25/18 04:22 Abnormal lab findings: Abnormal lab results WBC 14.9 K/mcL (4.3-11.1) H 01/25/18 04:22 RBC 3.78 M/mcL (4.19-5.50) L 01/25/18 04:22 Hgb 11.0 g/dL (12.9-16.9) L 01/25/18 04:22 Hct 32.7 % (37.5-50.1) L 01/25/18 04:22 Neutrophils # 9.8 K/mcL (1.6-8.9) H 01/25/18 04:22 PT 12.6 Seconds (9.4-12.1) H 01/25/18 04:22 APTT 24.9 Seconds (26.0-36.0) L 01/23/18 15:20 ABG pO2 71 mmHg (85-104) L 01/24/18 04:16 ABG Total CO2 28 mEq/L (20-26) H 01/24/18 04:16 ABG O2 Saturation 93 % (95-98) L 01/24/18 04:16 Potassium 3.4 mEq/L (3.5-5.1) L D 01/25/18 04:22 BUN 25 mg/dL (8-23) H 01/25/18 04:22 BUN/Creatinine Ratio 29 (6-26) H 01/25/18 04:22 Glucose 134 mg/dL (70-105) H 01/25/18 04:22 POC Glucose 151 mg/dL (70-99) H 01/25/18 00:03 Troponin I 5.99 ng/mL (< 0.04) H* 01/24/18 03:30 Serum Total Protein 6.0 g/dL (6.4-8.9) L 01/24/18 04:28 Albumin 3.1 g/dL (3.5-5.7) L 01/24/18 04:28 Streptococcus sp PCR DETECTED (Not Detect) A 01/23/18 18:49 - Microbiology Findings Microbiology Findings: Microbiology, Last 48 Hours 01/23/18 18:49 Blood Culture - Preliminary Peripheral Venipuncture Gram Positive Cocci - Chains 01/23/18 18:49 Blood Culture - Preliminary Peripheral Venipuncture Culture is incubating and being continuously monitored for growth. Final report to follow. - Clinical Findings Intake & Output: Intake & Output 01/24/18 01/25/18 01/25/18 23:59 07:59 15:59 Intake Total 420 / 420 Output Total 1650 / 1650 900 / 900 200 / 200 Balance -1650 / -1650 -480 / -480 -200 / -200 Weight 148 kg - VTE Reasons for not Prescribing Prophylaxis: Medical contraindication Documentation of Mechanical Device: Intermittent pneumatic compression device
[2018-01-25] MEDS ORDERED: Dextrose Gel 15 GM/37.5 ML TUBE PO PRN ×2 (10:57)
[2018-01-25] MEDS ORDERED: *HR* Dextrose 50 % in Water (Syg) 50 ML SYRINGE IVP PRN (10:57)
[2018-01-25] MEDS ORDERED: Naloxone 0.4 MG/ML INJ IVP PRN (10:57)
[2018-01-25] MEDS ORDERED: diazePAM 5 MG TABLET PO PRN (10:57)
[2018-01-25] MEDS ORDERED: D5% in Water 1,000 ML IVC PRN (10:57)
[2018-01-25] MEDS ORDERED: Ipratropium/Albuterol Neb 3 ML IH PRN (10:57)
[2018-01-25] MEDS: *HR* OxyCODONE Immed Rel 15 MG TABLET PO PRN ×3 (12:34→21:26)
[2018-01-26] MEDS: *HR* OxyCODONE Immed Rel 15 MG TABLET PO PRN ×4 (01:20→12:55)
[2018-01-26] MEDS: Insulin LISPRO 300 UNITS/3 ML VIAL SQ SCH ×4 (01:28→11:56)
[2018-01-26] MEDS ORDERED: Aspirin Enteric Coated 81 MG Tablet PO SCH (09:00)
[2018-01-26] MEDS ORDERED: Pantoprazole 40 MG VIAL IVP SCH (09:00)
[2018-01-26 09:19] LABS: Basophils # 0.1 K/mcL (0.0-0.2); Basophils % 0.4 %; Eosinophils # 0.1 K/mcL (0.0-0.6); Eosinophils % 0.9 %; Hematocrit 32.4 % (37.5-50.1); Hemoglobin 11.1 g/dL (12.9-16.9); Immature Granulocytes % 0.5 % (0-4); Lymphocytes # 2.8 K/mcL (0.6-4.6); Lymphocytes % 22.1 %; Mean Corpuscular HGB Conc 34.3 g/dL (31.6-35.5); Mean Corpuscular Hemoglobin 29.4 pg (28.0-33.3); Mean Corpuscular Volume 85.9 fL (83.0-100.0); Monocytes # 0.8 K/mcL (0.0-1.3); Monocytes % 6.4 %; Neutrophils # 8.9 K/mcL (1.6-8.9); Platelet Count 185 K/mcL (140-400); Red Blood Count 3.77 M/mcL (4.19-5.50); Red Cell Distribution Width 14.4 % (11.5-14.5); Segmented Neutrophils % 69.7 %
[2018-01-26 09:48] LABS: BUN/Creatinine Ratio 15 (6-26); Blood Urea Nitrogen 15 mg/dL (8-23); Calcium 8.9 mg/dL (8.6-10.3); Carbon Dioxide 26 mEq/L (23-29); Chloride 104 mEq/L (98-107); Glucose 224 mg/dL (70-105); Osmolality,Calculated 292 (280-300); Potassium 4.2 mEq/L (3.5-5.1); Sodium 137 mEq/L (136-145); eGFR For Non-African Americans > 60 (> 60)
[2018-01-26 11:05] VITALS: BP 113/65
--- NOTE | 2018-01-26 12:16 | Discharge Summary ---
- NOTES TO OUTPATIENT PROVIDER Notes to Outpatient Provider: Patient was admitted for Upper GI bleed with acute blood loss anemia and resp failure, intubated and extubated successfully. He received 4 units of RBCS in-patient. EGD showed large clot in the cardia. No active bleed. No ulcers noted. Biopsies pending , H.pylor ruled out. Hb has been stable at 11. Per cardiology recommended to continue ASA due to CAD but hold Plavix. We defer resumption of Plavix to cardiology on follow up. Patient discharged on PPI BID Orders not resulted at time of discharge: Pending orders 01/25/18 10:20 Culture,Blood [BC] Stat 01/27/18 04:00 Chem 7 [Basic Metabolic Panel] AM 0400 Complete Blood Count [HEME] AM 0400 Date of Encounter: 01/26/18 Time of Encounter: 12:12 - Discharge Diagnosis (1) Acute respiratory failure requiring reintubation Priority: Primary Status: Resolved (2) Shock Priority: Primary Status: Resolved (3) Hematemesis Priority: Primary Status: Resolved Qualifiers: Nausea presence: with nausea Qualified Code(s): K92.0 - Hematemesis (4) ROSALIO (acute kidney injury) Priority: Primary Status: Resolved (5) Elevated troponin Priority: Primary Status: Chronic (6) Diabetes Priority: Secondary Status: Chronic Qualifiers: Diabetes mellitus type: type 2 Diabetes mellitus email marketing intern insulin use: without email marketing intern use Diabetes mellitus complication status: with unspecified complications Qualified Code(s): E11.8 - Type 2 diabetes mellitus with unspecified complications (7) DVT prophylaxis Priority: Primary Status: Acute (8) Chronic back pain Priority: Secondary Status: Chronic Qualifiers: Back pain location: low back pain Back pain laterality: unspecified Sciatica presence: without sciatica Qualified Code(s): M54.5 - Low back pain; G89.29 - Other chronic pain (9) Positive blood culture Priority: Primary Status: Resolved (10) Upper GI bleed Priority: Primary Status: Acute (11) CAD (coronary artery disease) Priority: Secondary Status: Chronic Qualifiers: Coronary Disease-Associated Artery/Lesion type: [place] artery [place] vs. transplanted heart: [place] heart Associated angina: without angina Qualified Code(s): I25.10 - Atherosclerotic heart disease of [place] coronary artery without angina pectoris (12) Chronic prescription opiate use Priority: Secondary Status: Chronic (13) Essential hypertension Priority: Secondary Status: Chronic (14) Morbid obesity with BMI of 40.0-44.9, adult Priority: Secondary Status: Chronic Hospital course: Mr. Burch is a 62 year old male with PMH of CAD with PCI, vasospastic angina, DM , Chronic back pain wit opoate dependence, anxiety, HTN, Morbid obesity The patient was admitted to the intensive care unit with hypovolemic shock from upper GI bleed, acute blood loss anemia from upper GI bleed, elevated troponin, acute respiratory failure requiring intubation, acute kidney injury and possible culture. The patient's creatinine on presentation was 1.78 likely prerenal due to hypotension from GI bleed. Creatinine has since remained normal with IV fluid hydration and blood transfusion. He also had 1 out of 2 bottles blood cultures tested positive for strep glucose on arrival, repeat blood cultures to these data is negative without any intervention. Surgery was consulted and EGD showed large blood clot in the cardia biopsies done showed near normal mucosa H pylori was negative. Patient remained hemodynamically stable and hemoglobin remained stable. Aspirin and Plavix were held but resumed aspirin based on cardiology recommendation prior to discharge. Patient's leukocytosis improved rapidly without antibiotics and leukocytosis he stops to be due to reaction from GI bleed. The patient remains afebrile and hemodynamically stable. The patient is seen and examined at the bedside with family members morning, he is ambulatory and requesting to be discharged home. He is not in any form of respiratory or painful distress, he is alert awake and oriented 3 understands his diagnosis and understands very presents to the emergency room if bleeding recurs. We will defer resumption of Plavix to cardiology when patient follows up outpatient. His aspirin has been changed to enteric-coated, and he has been resumed on PPI twice a day. Follow-up with primary care physician and cardiology. Patient is discharged in stable clinical condition. Discharge discussed with: patient, family, nurse, case management - Time Spent with Patient Total time spent providing and/or coordinating discharge services: Greater than 30 minutes (45 mins spent in face to face encounter, chart review, med rec, presctiption and documentation) - Discharge Medications Home Medications: Glimepiride [Amaryl] 2 mg PO DAILY 07/14/17 [History] Oxycodone HCl 15 mg PO 5XD 07/14/17 [History] Sertraline [Zoloft] 200 mg PO DAILY 07/14/17 [History] Tizanidine HCl 4 mg PO TID PRN 07/14/17 [History] diazePAM [Valium] 5 mg PO BID 07/14/17 [History] Aspirin 81 mg PO DAILY #30 tab.chew 07/16/17 [Rx] Clopidogrel [Plavix] 75 mg PO DAILY 12/10/17 [History] DULoxetine [Cymbalta] 20 mg PO BID 12/10/17 [History] Lisinopril [Zestril] 2.5 mg PO DAILY #30 tablet 12/11/17 [Rx] Metoprolol [Lopressor] 12.5 mg PO BID #60 tablet 12/11/17 [Rx] Albuterol Sulfate [Albuterol Inhaler] 2 puff IH Q6H PRN 01/08/18 [History] Metformin HCl 1,000 mg PO DAILY 01/08/18 [History] Tiotropium [place] [Spiriva Respimat] 2 puff IH DAILY 01/08/18 [History] Diltiazem CD (24hr) [Cardizem CD] 120 mg PO DAILY 30 Days #30 cap.er.24h [Rx] Isosorbide MONOnitrate (24 HR) [Imdur] 30 mg PO DAILY 30 Days #30 tab.er.24h [Rx] Ondansetron HCl [Zofran] 4 mg PO Q8HR PRN 01/23/18 [History] Allergies/Adverse Reactions: 3 Allergy/AdvReac Type Severity Reaction Status Date / Time No Known Allergies Allergy Verified 01/08/18 10:56 Date of admission: 01/23/18 17:13 Primary care physician: Izabela Sam CNP Consults: 01/23/18 18:02 Consult to Physician [CONS] Routine Consulting Provider: Vasiliy Rehman Reason for Consult: GI bleed Call Completed: Yes 01/23/18 18:03 Consult to Pulmonology [CONS] Routine Consulting Provider: [facility] [place] Reason for Consult: intubated, UGIB Call Completed: Yes 01/23/18 18:52 Consult to Nutrition [CONS] Routine Comment: Consulting Provider: NUTRITION Reason for Dietary Consult: Other 01/24/18 11:24 Consult to Cardiology [CONS] Routine Comment: Consulting Provider: Cardiology Tila Reason for Consult: elevated troponin, history of ME, presented with hematemesis Call Completed: Yes Discharging clinician: Ayaz Khalil Anticipated date of discharge: 01/26/18 - Constitutional Vitals: Temp Pulse Resp BP Pulse Ox 98.6 F 83 17 113/65 96 01/26/18 11:04 01/26/18 11:04 01/26/18 11:04 01/26/18 11:04 01/26/18 11:04 General appearance: Present: A&O X 3, morbidly obese, pleasant, no acute distress - Head Head exam: Present: atraumatic, normocephalic - Eye Eye exam: Present: PERRL, conjuntiva pink, sclera anicteric Pupils: Present: PERRL - Neck Neck exam general surgery: Present: supple, trachea midline. Absent: lymphadenopathy - Respiratory Respiratory exam: Present: CTAB. Absent: accessory muscle use, rales, rhonchi, wheezes - Cardiovascular Cardiovascular exam: Present: RRR, +S1, +S2. Absent: diastolic murmur, gallop, rubs, systolic murmur - GI/Abdominal GI/Abdominal exam: Present: normal bowel sounds, soft, no peritoneal signs. Absent: distended, tenderness - Extremities Exam Extremities exam: Present: warm, radial pulses palpable and symmetrical. Absent : calf tenderness, cyanotic, pedal edema - Neurological Exam Neurological exam: Present: CN II-XII intact, oriented X3, no focal deficits. Absent: pronater drift, facial droop, speech deficit - Skin Skin exam: Present: dry, intact - Patient Status Disposition: Home, Self-Care Condition: Good Functional capacity at discharge: independent ambulation Overall status at discharge: patient is back to baseline - Discharge Instructions Follow Up With: Izabela Sam CNP [Primary Care Provider] - 02/02/18 10:00 am (Please follow up a schedule..) - Diet and Activity Activity: resume usual activities as tolerated Diet: low fat, low cholesterol, low salt diet - VTE Reasons for not Prescribing Prophylaxis: Medical contraindication Documentation of Mechanical Device: Intermittent pneumatic compression device
[2018-01-26] MEDS ORDERED: Insulin LISPRO 300 UNITS/3 ML VIAL SQ SCH (21:00)
== END 2018-01-26 13:00 | disposition home or self-care (01) | DRG 377 ==
LOC: EMEROO 14:34 → SUATTDRO 17:13 → ICNU 17:13 → 2ANU 01-25 10:11
PROVIDERS: ADMIT Internal Medicine; ATTEND Internal Medicine
PROC: ENDOEBX (2018-01-23 19:00)

== ENCOUNTER 2018-02-08 23:34 | Observation (INO) ==
[2018-02-09] MEDS ORDERED: Ondansetron 4 MG/2 ML VIAL IVP ONE ×2 (00:35→01:33)
[2018-02-09 00:53] LABS: Basophils # 0.1 K/mcL (0.0-0.2); Basophils % 0.3 %; Eosinophils # 0.1 K/mcL (0.0-0.6); Eosinophils % 0.4 %; Hematocrit 29.8 % (37.5-50.1); Hemoglobin 9.6 g/dL (12.9-16.9); Immature Granulocytes % 0.4 % (0-4); Lymphocytes % 17.4 %; Mean Corpuscular HGB Conc 32.2 g/dL (31.6-35.5); Mean Corpuscular Hemoglobin 27.9 pg (28.0-33.3); Mean Corpuscular Volume 86.6 fL (83.0-100.0); Mean Platelet Volume 9.5 fL (9.4-12.4); Monocytes # 1.1 K/mcL (0.0-1.3); Monocytes % 6.6 %; Neutrophils # 12.8 K/mcL (1.6-8.9); Platelet Count 388 K/mcL (140-400); Red Blood Count 3.44 M/mcL (4.19-5.50); Red Cell Distribution Width 15.3 % (11.5-14.5); Segmented Neutrophils % 74.9 %
[2018-02-09] MEDS ORDERED: Pantoprazole 80 MG in 0.9 % Sodium Chloride 50 ML IVPB ONE (01:07)
[2018-02-09 01:12] LABS: BUN/Creatinine Ratio 14 (6-26); Blood Urea Nitrogen 15 mg/dL (8-23); Calcium 9.4 mg/dL (8.6-10.3); Carbon Dioxide 26 mEq/L (23-29); Chloride 105 mEq/L (98-107); Glucose 97 mg/dL (70-105); Osmolality,Calculated 285 (280-300); Potassium 3.9 mEq/L (3.5-5.1); Sodium 137 mEq/L (136-145); eGFR For Non-African Americans > 60 (> 60)
[2018-02-09] MEDS ORDERED: 0.9 % Sodium Chloride 1,000 ML IVC ONE (01:13)
[2018-02-09] MEDS ORDERED: Pantoprazole 40 MG in 0.9 % Sodium Chloride Mini Bag 100 ML IVC SCH (01:15)
[2018-02-09 01:16] LABS: Prothrombin Time 11.8 Seconds (9.4-12.1)
[2018-02-09] MEDS ORDERED: *HR* FentaNYL (PF) 100 MCG/2 ML VIAL IVP ONE (01:20)
[2018-02-09 01:42] LABS: Troponin I 6.89 ng/mL (< 0.04)
--- NOTE | 2018-02-09 01:56 | Emergency Department Note ---
Disposition Clinical Impression: Upper GI bleed, Elevated troponin Chest pain Qualifiers: Chest pain type: unspecified Qualified Code(s): R07.9 - Chest pain, unspecified Hematemesis Qualifiers: Nausea presence: with nausea Qualified Code(s): K92.0 - Hematemesis Disposition: Admitted As Inpatient Condition: Fair Time of Disposition: 02:50 GI Bleed HPI - General Chief complaint: ED GI Bleed Stated complaint: Puking Blood Time Seen by Provider: 02/09/18 01:06 Source: patient Limitations: no limitations Nursing Notes Reviewed: Yes Vital Signs Reviewed: Yes - History of Present Illness HPI Narrative: Patient is a 62-year-old male who presents to [facility] ED with a chief complaint of hematemesis. States he had one episode earlier today where he vomited up dark coffee ground like emesis. Admits to some nausea. Patient also admits to several days of chest pain and difficulty breathing. States he is abdominal pain is epigastric and radiates into the chest. Denies any fever/chills, problems with urination or bowel movements. Patient recently was admitted here 2 weeks ago for GI bleed. He was critically ill at that time and was intubated and underwent a stay in the ICU. He received 4 units of blood and underwent urgent endoscopy. They have seen blood clots in the cardia of the stomach but no active bleeding at that time. Patient has had multiple visits with elevated troponins. His last heart catheterization showed some possible coronary vasospasm. 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 Denies: fever, chills, loss of appetite Treatments Prior to Arrival: none - Related Data Home Medications Medication Instructions Recorded Confirmed Glimepiride [Amaryl] 2 mg PO DAILY 07/14/17 02/09/18 Oxycodone HCl 15 mg PO 5XD 07/14/17 02/09/18 Sertraline [Zoloft] 200 mg PO DAILY 07/14/17 02/09/18 Tizanidine HCl 4 mg PO TID PRN 07/14/17 02/09/18 diazePAM [Valium] 5 mg PO BID 07/14/17 02/09/18 DULoxetine [Cymbalta] 20 mg PO BID 12/10/17 02/09/18 Albuterol Sulfate [Albuterol 2 puff IH Q6H PRN 01/08/18 02/09/18 Inhaler] Metformin HCl 1,000 mg PO DAILY 01/08/18 02/09/18 Tiotropium [place] [Spiriva 2 puff IH DAILY 01/08/18 02/09/18 Respimat] Ondansetron HCl [Zofran] 4 mg PO Q8HR PRN 01/23/18 02/09/18 Previous Rx's Medication Instructions Recorded Lisinopril [Zestril] 2.5 mg PO DAILY #30 tablet 12/11/17 Metoprolol [Lopressor] 12.5 mg PO BID #60 tablet 12/11/17 Diltiazem CD (24hr) [Cardizem CD] 120 mg PO DAILY 30 Days #30 01/11/18 cap.er.24h Isosorbide MONOnitrate (24 HR) 30 mg PO DAILY 30 Days #30 01/11/18 [Imdur] tab.er.24h Aspirin Enteric Coated [Aspirin EC] 81 mg PO DAILY #30 tablet. 01/26/18 Omeprazole [PriLOSEC] 40 mg PO BIDAC #60 capsule. 01/26/18 Allergies Allergy/AdvReac Type Severity Reaction Status Date / Time No Known Allergies Allergy Verified 02/08/18 23:40 All systems ED: reviewed and negative except as stated. Past Medical History - Past Medical History Attestation: Yes The following information was validated with the patient. Source: patient Medical history: Reports: arthritis, coronary artery disease, diabetes, hyperlipidemia, kidney stones, myocardial infarction Surgical history: Reports: angioplasty/stent, cholecystectomy Psychiatric history: Reports: depression - Social History Smoking Status: Current every day smoker Smokeless Tobacco Status: No Alcohol use: Reports: none Drug use: Reports: none Physical Exam - General Limitations: no limitations General appearance: alert - Head Head exam: atraumatic, normocephalic, normal inspection - Eye Eye exam: Present: EOMI - ENT ENT exam: normal exam, normal oropharynx, mucous membranes moist - Neck Neck exam: Present: normal inspection, full ROM, trachea midline - Chest Chest inspection: Present: normal inspection, symmetric chest wall rise - Respiratory Respiratory exam: Present: normal lung sounds bilaterally - Cardiovascular Cardiovascular exam: Present: regular rate, normal rhythm, normal heart sounds - Abdominal Exam Abdominal exam: Present: soft, tenderness, normal bowel sounds Abdominal tenderness: Present: moderate - Extremities Exam Extremities exam: Present: normal inspection, full ROM. Absent: tenderness, pedal edema - Neurological Exam Neurological exam: Present: alert, oriented X3 - Psychiatric Psychiatric exam: Present: normal affect, normal mood - Skin Skin exam: Present: warm, dry, intact, normal color Course Course Narrative: Patient seen and examined. Concern for an episode of coffee-ground emesis. Lab work that was done in triage shows decreased hemoglobin from the last time he was here. Patient started on Protonix bolus and drip. Since patient was so critically ill last time, we discussed the case with endoscopy. They state they will hold off on emergently doing any intervention at this time. We will observe for now. Troponin level still pending. - Reevaluation(s) Reevaluation #1: Labwork shows an elevated troponin level of 6.8. This has previously been elevated as well and he has been evaluated by cardiology multiple times which has attributed the elevated troponin to demand ischemia/vasospasm. We repeated a hemoglobin which was 9.7. This appears stable for now. Patient has not had any more episodes of vomiting. He is nauseous and was given Zofran. His vital signs are stable. I discussed with the hospitalist Dr. Catherine who has accepted patient for admission. We will admit to 2 N. due to the potential for getting worse if he does acutely start bleeding again. Time: 02:47 Vital Signs Temperature 99.1 F 02/08/18 23:41 Pulse Rate 71 02/08/18 23:41 Respiratory Rate 16 02/08/18 23:41 Blood Pressure 117/69 02/08/18 23:41 O2 Sat by Pulse Oximetry 98 02/08/18 23:41 Temperature 97.8 F 02/09/18 04:00 Pulse Rate 69 02/09/18 04:00 Respiratory Rate 20 02/09/18 04:00 Blood Pressure 137/89 02/09/18 04:00 O2 Sat by Pulse Oximetry 98 02/09/18 04:00 Oxygen Delivery Oxygen Delivery Room Air GI Bleed - Medical Records Medical records reviewed: Yes I reviewed the patient's medical records. - Lab Data Lab results reviewed: Yes I reviewed the patient's lab results. Result diagrams: 02/09/18 01:32 02/08/18 00:37 Lab Results 02/08/18 02/08/18 02/08/18 Range/Units 00:37 00:37 00:37 WBC 17.1 H (4.3-11.1) K/mcL RBC 3.44 L (4.19-5.50) M/mcL Hgb 9.6 L (12.9-16.9) g/dL Hct 29.8 L (37.5-50.1) % MCV 86.6 (83.0-100.0) fL MCH 27.9 L (28.0-33.3) pg MCHC 32.2 (31.6-35.5) g/dL RDW 15.3 H (11.5-14.5) % Plt Count 388 (140-400) K/mcL MPV 9.5 (9.4-12.4) fL Immature Gran % 0.4 (0-4) % Seg Neutrophils % 74.9 % Lymphocytes % 17.4 % Monocytes % 6.6 % Eosinophils % 0.4 % Basophils % 0.3 % Neutrophils # 12.8 H (1.6-8.9) K/mcL Lymphocytes # 3.0 (0.6-4.6) K/mcL Monocytes # 1.1 (0.0-1.3) K/mcL Eosinophils # 0.1 (0.0-0.6) K/mcL Basophils # 0.1 (0.0-0.2) K/mcL PT 11.8 (9.4-12.1) Seconds INR 1.0 APTT 31.0 (26.0-36.0) Seconds Sodium 137 (136-145) mEq/L Potassium 3.9 (3.5-5.1) mEq/L Chloride 105 (98-107) mEq/L Carbon Dioxide 26 (23-29) mEq/L BUN 15 (8-23) mg/dL Creatinine 1.04 (0.70-1.30) mg/dL Est GFR ( Amer) > 60 (> 60) Est GFR (Non-Af Amer) > 60 (> 60) BUN/Creatinine Ratio 14 (6-26) Glucose 97 (70-105) mg/dL Calculated Osmolality 285 (280-300) Calcium 9.4 (8.6-10.3) mg/dL Troponin I 6.89 H* (< 0.04) ng/mL Blood Type Antibody Screen 02/09/18 02/09/18 Range/Units 01:32 01:49 WBC (4.3-11.1) K/mcL RBC (4.19-5.50) M/mcL Hgb 9.7 L (12.9-16.9) g/dL Hct 30.0 L (37.5-50.1) % MCV (83.0-100.0) fL MCH (28.0-33.3) pg MCHC (31.6-35.5) g/dL RDW (11.5-14.5) % Plt Count (140-400) K/mcL MPV (9.4-12.4) fL Immature Gran % (0-4) % Seg Neutrophils % % Lymphocytes % % Monocytes % % Eosinophils % % Basophils % % Neutrophils # (1.6-8.9) K/mcL Lymphocytes # (0.6-4.6) K/mcL Monocytes # (0.0-1.3) K/mcL Eosinophils # (0.0-0.6) K/mcL Basophils # (0.0-0.2) K/mcL PT (9.4-12.1) Seconds INR APTT (26.0-36.0) Seconds Sodium (136-145) mEq/L Potassium (3.5-5.1) mEq/L Chloride (98-107) mEq/L Carbon Dioxide (23-29) mEq/L BUN (8-23) mg/dL Creatinine (0.70-1.30) mg/dL Est GFR ( Amer) (> 60) Est GFR (Non-Af Amer) (> 60) BUN/Creatinine Ratio (6-26) Glucose (70-105) mg/dL Calculated Osmolality (280-300) Calcium (8.6-10.3) mg/dL Troponin I (< 0.04) ng/mL Blood Type A POSITIVE Antibody Screen NEGATIVE - EKG Data EKG attestation: Yes I reviewed and interpreted this EKG. EKG results narrative: EKG done at 2354 shows normal sinus rhythm with a rate of [address] elevation or depression noted. Normal axis. Right bundle branch block present. Left anterior fascicular block noted. Unchanged from prior EKG done 01/23/2018. Attestation Statement - Attestation Attestation: I, Ori Weston DO, examined this patient [id number] and my medical decision-making was reviewed with Jacqueline Birmingham DO , Resident Physician. I agree with the documented findings, disposition and treatment plan as described except to the extent set forth below. Please see my progress notes for details.
[2018-02-09 02:06] LABS: Hemoglobin 9.7 g/dL (12.9-16.9)
--- NOTE | 2018-02-09 02:24 | Emergency Department Note ---
Disposition Clinical Impression: Upper GI bleed, Elevated troponin Chest pain Qualifiers: Chest pain type: unspecified Qualified Code(s): R07.9 - Chest pain, unspecified Hematemesis Qualifiers: Nausea presence: with nausea Qualified Code(s): K92.0 - Hematemesis Disposition: Admitted As Inpatient Condition: Fair Time of Disposition: 03:40 General Adult HPI - General Chief complaint: ED GI Bleed Stated complaint: Puking Blood Time Seen by Provider: 02/09/18 01:06 Source: patient Limitations: no limitations - History of Present Illness Pain Scale: 5 - Related Data Home Medications Medication Instructions Recorded Confirmed Glimepiride [Amaryl] 2 mg PO DAILY 07/14/17 01/23/18 Oxycodone HCl 15 mg PO 5XD 07/14/17 01/23/18 Sertraline [Zoloft] 200 mg PO DAILY 07/14/17 01/23/18 Tizanidine HCl 4 mg PO TID PRN 07/14/17 01/23/18 diazePAM [Valium] 5 mg PO BID 07/14/17 01/23/18 DULoxetine [Cymbalta] 20 mg PO BID 12/10/17 01/23/18 Albuterol Sulfate [Albuterol 2 puff IH Q6H PRN 01/08/18 01/23/18 Inhaler] Metformin HCl 1,000 mg PO DAILY 01/08/18 01/23/18 Tiotropium [place] [Spiriva 2 puff IH DAILY 01/08/18 01/23/18 Respimat] Ondansetron HCl [Zofran] 4 mg PO Q8HR PRN 01/23/18 01/23/18 Previous Rx's Medication Instructions Recorded Lisinopril [Zestril] 2.5 mg PO DAILY #30 tablet 12/11/17 Metoprolol [Lopressor] 12.5 mg PO BID #60 tablet 12/11/17 Diltiazem CD (24hr) [Cardizem CD] 120 mg PO DAILY 30 Days #30 01/11/18 cap.er.24h Isosorbide MONOnitrate (24 HR) 30 mg PO DAILY 30 Days #30 01/11/18 [Imdur] tab.er.24h Aspirin Enteric Coated [Aspirin EC] 81 mg PO DAILY #30 tablet. 01/26/18 Omeprazole [PriLOSEC] 40 mg PO BIDAC #60 capsule. 01/26/18 Allergies Allergy/AdvReac Type Severity Reaction Status Date / Time No Known Allergies Allergy Verified 02/08/18 23:40 Past Medical History - Past Medical History Medical history: Reports: arthritis, coronary artery disease, diabetes, hyperlipidemia, kidney stones, myocardial infarction Surgical history: Reports: angioplasty/stent, cholecystectomy Psychiatric history: Reports: depression - Social History Smoking Status: Current every day smoker Smokeless Tobacco Status: No Alcohol use: Reports: none Drug use: Reports: none Physical Exam - General Limitations: no limitations General appearance: alert Course Vital Signs Temperature 99.1 F 02/08/18 23:41 Pulse Rate 71 02/08/18 23:41 Respiratory Rate 16 02/08/18 23:41 Blood Pressure 117/69 02/08/18 23:41 O2 Sat by Pulse Oximetry 98 02/08/18 23:41 Temperature 99.1 F 02/08/18 23:41 Pulse Rate 65 02/09/18 01:31 Respiratory Rate 16 02/08/18 23:41 Blood Pressure 118/67 02/09/18 01:31 O2 Sat by Pulse Oximetry 98 02/09/18 01:31 Oxygen Delivery Oxygen Delivery Room Air Medical Decision Making - Lab Data Result diagrams: 02/09/18 01:32 02/08/18 00:37 Lab Results 02/08/18 02/08/18 02/08/18 Range/Units 00:37 00:37 00:37 WBC 17.1 H (4.3-11.1) K/mcL RBC 3.44 L (4.19-5.50) M/mcL Hgb 9.6 L (12.9-16.9) g/dL Hct 29.8 L (37.5-50.1) % MCV 86.6 (83.0-100.0) fL MCH 27.9 L (28.0-33.3) pg MCHC 32.2 (31.6-35.5) g/dL RDW 15.3 H (11.5-14.5) % Plt Count 388 (140-400) K/mcL MPV 9.5 (9.4-12.4) fL Immature Gran % 0.4 (0-4) % Seg Neutrophils % 74.9 % Lymphocytes % 17.4 % Monocytes % 6.6 % Eosinophils % 0.4 % Basophils % 0.3 % Neutrophils # 12.8 H (1.6-8.9) K/mcL Lymphocytes # 3.0 (0.6-4.6) K/mcL Monocytes # 1.1 (0.0-1.3) K/mcL Eosinophils # 0.1 (0.0-0.6) K/mcL Basophils # 0.1 (0.0-0.2) K/mcL PT 11.8 (9.4-12.1) Seconds INR 1.0 APTT 31.0 (26.0-36.0) Seconds Sodium 137 (136-145) mEq/L Potassium 3.9 (3.5-5.1) mEq/L Chloride 105 (98-107) mEq/L Carbon Dioxide 26 (23-29) mEq/L BUN 15 (8-23) mg/dL Creatinine 1.04 (0.70-1.30) mg/dL Est GFR ( Amer) > 60 (> 60) Est GFR (Non-Af Amer) > 60 (> 60) BUN/Creatinine Ratio 14 (6-26) Glucose 97 (70-105) mg/dL Calculated Osmolality 285 (280-300) Calcium 9.4 (8.6-10.3) mg/dL Troponin I 6.89 H* (< 0.04) ng/mL Blood Type Antibody Screen 02/09/18 02/09/18 Range/Units 01:32 01:49 WBC (4.3-11.1) K/mcL RBC (4.19-5.50) M/mcL Hgb 9.7 L (12.9-16.9) g/dL Hct 30.0 L (37.5-50.1) % MCV (83.0-100.0) fL MCH (28.0-33.3) pg MCHC (31.6-35.5) g/dL RDW (11.5-14.5) % Plt Count (140-400) K/mcL MPV (9.4-12.4) fL Immature Gran % (0-4) % Seg Neutrophils % % Lymphocytes % % Monocytes % % Eosinophils % % Basophils % % Neutrophils # (1.6-8.9) K/mcL Lymphocytes # (0.6-4.6) K/mcL Monocytes # (0.0-1.3) K/mcL Eosinophils # (0.0-0.6) K/mcL Basophils # (0.0-0.2) K/mcL PT (9.4-12.1) Seconds INR APTT (26.0-36.0) Seconds Sodium (136-145) mEq/L Potassium (3.5-5.1) mEq/L Chloride (98-107) mEq/L Carbon Dioxide (23-29) mEq/L BUN (8-23) mg/dL Creatinine (0.70-1.30) mg/dL Est GFR ( Amer) (> 60) Est GFR (Non-Af Amer) (> 60) BUN/Creatinine Ratio (6-26) Glucose (70-105) mg/dL Calculated Osmolality (280-300) Calcium (8.6-10.3) mg/dL Troponin I (< 0.04) ng/mL Blood Type A POSITIVE Antibody Screen NEGATIVE Attestation Statement - Attestation Attestation: I, Ori Weston DO, examined this patient [id number] and my medical decision-making was reviewed with Jacqueline Birmingham DO , Resident Physician. I agree with the documented findings, disposition and treatment plan as described except to the extent set forth below. Please see my progress notes for details. 62-year-old male presents to the emergency room with complaint of coffee-ground emesis. Patient's had this happen one other time in the past at the end of December. The source to the bleeding was unknown at that time after a upper endoscopy that was completed. Patient was stopped from his anticoagulation medication. Patient was started on this anticoagulation medication secondary to a myocardial infarction along with stent placement back in July. Patient is currently denying any fevers or chills nausea vomiting diarrhea here in the emergency room despite he had several episodes of vomiting at home. Denies any specific chest pain or shortness of breath outside of the discomfort he has been his stomach starts to be painful. Patient does have a history of coronary artery disease as well as a noted troponin that did not change her go down to his previous evaluations. On presentation here the patient has slightly pale. He was placed in the triage room BECAUSE BEDS WERE TIGHT AT THAT TIME AND HAVE LABS AND IMAGING STARTED. PATIENT WAS FOUND TO HAVE A HEMOGLOBIN OF 9.6 IN COMPARISON TO PREVIOUS HEMOGLOBIN OF 11.1. PATIENT IS CONCERNING FOR ACUTE UPPER GI BLEED AGAIN AT THIS TIME. HE DOES NOT KNOW IF HE HAS ANY ANTICOAGULATION ON BOARD. IMMEDIATELY THE ON-CALL [employer] ADMINISTRATOR DR. HOOVER WAS CONTACTED. HE RECOMMENDED STABILIZATION ADMISSION REPEAT HEMOGLOBIN IF NEEDED. PATIENT WILL BE STARTED WITH IV FLUID RESUSCITATION WELL IV PROTONIX AND PROTONIX DRIP FORM. PATIENT HAD TYPE AND SCREEN COMPLETED. WE WILL CONTINUE MONITORING HER SYMPTOMS ARE CONTROLLED ADMISSION PROCESSES ESTABLISHED. PATIENT OTHERWISE APPEAR TO BE HEMODYNAMICALLY STABLE DESPITE THE CONCERN FOR GI BLEED. PREVIOUS WORKUP EVALUATION. Be reviewed from the last hospital stay. We will continue to monitor here as treatment course is established. No current local care pad the patient's treatment course this time. See detailed documentation the physical exam, medical intervention, medical decision-making and disposition in the resident physician' s note. 0215 Patient's repeat hemoglobin is 9.7. Patient stomach feels much better after the Protonix infusion was started. Vital signs remain stable. Patient will be admitted for further observation and management. His troponin was elevated today at 6.98. Reviewing previous troponins this is identical to all his other laboratory evaluations. Patient is otherwise clinical stable in no specific distress at this time admission process to be completed 0300 Hospitalist was contacted. No other recommendations or concerns. Patient is been hemodynamically stable. Admission process to be completed at this time. Patient will be observed in emergency room until admission processes established.
[2018-02-09] MEDS ORDERED: tiZANidine 4 MG TABLET PO PRN (03:35)
[2018-02-09] MEDS ORDERED: Ondansetron 4 MG/2 ML VIAL IVP PRN (03:41)
--- NOTE | 2018-02-09 04:07 | Internal Med History&Physical ---
Date of Encounter: 02/09/18 Time of Encounter: 04:06 Internal Medicine - H&P: HPI Chief complaint: vomiting blood Admitted From: Home Plans for Post Hospital Care: Home History of present illness: Mr. 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 He was admitted here 2 weeks ago for a new onset hematemesis that was severe enough to prompt intubation for airway protection and managed for hemorrhagic shock with blood loss requiring up to 4U pRBCs. He had an EGD which showed a blood clot in the cardia with biopsies taken negative for H.pylori. His hemodynamics quickly improved and after ASA/ clopidogrel being on hold, it was recommended he continue ASA alone for his CAD upon cardiology recommendation. He presents today stating that while he has done well since his discharge, he had 3 episodes of vomiting yesterday, the first of which was not bloody but the subsequent 2 were consistent with coffee ground emesis accompanied by epigastric pain. He has not vomited since arrival and GI consult was requested. HE has been starting on pantoprazole gtt pending. The patient states that his stool has not been black since his discharge and this is the first bleeding episode again since then. He continues to smoke but denies alcohol use. Past Med Surg Social Fam HX - Past Medical History Medical history: arthritis, coronary artery disease, diabetes, hyperlipidemia, kidney stones, myocardial infarction Additional medical history: knee replacement Psychiatric history: depression - Past Surgical History Surgical History: angioplasty/stent, cholecystectomy Additional surgical history: heart stent x1 (2018), left knee replacement - Social History Smoking Status: Current every day smoker Smokeless Tobacco Status: No Alcohol use: none Drug use: none - Family History Father Hx Family Cancer: Yes Hx Family Endocrine Disorder: Yes (kidney replacement) Sister Hx Family Endocrine Disorder: Yes (DM) Internal Medicine - H&P: Meds Glimepiride [Amaryl] 2 mg PO DAILY 07/14/17 [History] Oxycodone HCl 15 mg PO 5XD 07/14/17 [History] Sertraline [Zoloft] 200 mg PO DAILY 07/14/17 [History] Tizanidine HCl 4 mg PO TID PRN 07/14/17 [History] diazePAM [Valium] 5 mg PO BID 07/14/17 [History] DULoxetine [Cymbalta] 20 mg PO BID 12/10/17 [History] Lisinopril [Zestril] 2.5 mg PO DAILY #30 tablet 12/11/17 [Rx] Metoprolol [Lopressor] 12.5 mg PO BID #60 tablet 12/11/17 [Rx] Albuterol Sulfate [Albuterol Inhaler] 2 puff IH Q6H PRN 01/08/18 [History] Metformin HCl 1,000 mg PO DAILY 01/08/18 [History] Tiotropium [place] [Spiriva Respimat] 2 puff IH DAILY 01/08/18 [History] Diltiazem CD (24hr) [Cardizem CD] 120 mg PO DAILY 30 Days #30 cap.er.24h [Rx] Isosorbide MONOnitrate (24 HR) [Imdur] 30 mg PO DAILY 30 Days #30 tab.er.24h [Rx] Ondansetron HCl [Zofran] 4 mg PO Q8HR PRN 01/23/18 [History] Aspirin Enteric Coated [Aspirin EC] 81 mg PO DAILY #30 tablet. 01/26/18 [Rx] Omeprazole [PriLOSEC] 40 mg PO BIDAC #60 capsule. 01/26/18 [Rx] 3 Allergy/AdvReac Type Severity Reaction Status Date / Time No Known Allergies Allergy Verified 02/08/18 23:40 All Systems PM: A 10-system review of systems was performed and is negative for pertinent findings except as documented above in the HPI. - Constitutional Vitals: Temp Pulse Resp BP Pulse Ox 99.1 F 65 16 118/67 98 02/08/18 23:41 02/09/18 01:31 02/08/18 23:41 02/09/18 01:31 02/09/18 01:31 Exam: Vitals: Reviewed and seen to be within normal limits. General: Obese white male sitting comfortably at the edge of the bed in no acute distress. Skin: No ulcers or lesions. HEENT: Moist mucous membranes. (+) conjunctivae pallor. Neck: No lymphadenopathy. No JVD. No carotid bruits. No palpable thyroid. Chest: Normal thoracic expansion. Normal breath sounds. Clear to auscultation. Heart: Normal S1 & S2; rhythmic. No rubs or murmurs. Abdomen: Soft and mildly tender to palpation in the epigastrium. No peritoneal reaction. Extremities: No clubbing, cyanosis or edema. No calf tenderness. Normal distal pulses. Neurological: Awake, alert and oriented to person, place and time. No focal deficits. Psych: Affect appropriate. Internal Med - H&P Results - Labs CBC & Chem 7: 02/09/18 01:32 02/08/18 00:37 - Assessment and plan (1) Upper GI bleed Current Visit: Yes Status: Acute Assessment and plan: Concerning for hemorrhagic gastritis or a bleeding ulcer. -Continue PPI gtt and transition to BID IVP once done. -GI consult requested. -IVF resuscitation. -Monitor H/H serially and will transfuse if Hgb <8.0 or patient becomes symptomatic. (2) Acute blood loss anemia Current Visit: Yes Status: Acute Assessment and plan: Mgmt as indicated above with serial monitoring and repletion prn. (3) Elevated troponin Current Visit: Yes Status: Chronic Assessment and plan: Etiology remains unclear; he is seen to have high elevations since June 2017 with no found reason and does not appear associated with his heart. He has been evaluated by cardiology for this even recently. He does not have CKD or SAH or PE which we know can elevate these levels. Other causes such as acute pericarditis or inflammatory myocarditis do not appear to be issues and no history of direct cardiac trauma. He may have an innate abnormality resulting in this such as the presence of heterophile antibodies or rheumatoid factor. There is no reason why it was obtained in the first place by the ER as they equally document that he did not have chest pain or shortness of breath. -Will not trend any further. (4) Leukocytosis Current Visit: Yes Status: Acute Assessment and plan: Unclear etiology; seen to be chronically elevated and not just associated with his acute stress episode. No signs of infection at this time. Should be monitored. Qualifiers: Leukocytosis type: unspecified Qualified Code(s): D72.829 - Elevated white blood cell count, unspecified (5) CAD (coronary artery disease) Current Visit: Yes Status: Chronic Assessment and plan: Hold ASA for now given the bleeding. I have not restarted his isorbide mononitrate, diltiazem and lisinopril as I do not want these medications confounding his vitals. In the current acute setting if there is a drop in BP or absence of tachycardia, I will like to know that these medications have not played a role. Once showing stability, these should be resumed. Qualifiers: Coronary Disease-Associated Artery/Lesion type: [place] artery [place] vs. transplanted heart: [place] heart Associated angina: without angina Qualified Code(s): I25.10 - Atherosclerotic heart disease of [place] coronary artery without angina pectoris (6) Chronic back pain Current Visit: Yes Status: Chronic Assessment and plan: The patient is adamant on his need for his opiate analgesics. Given his current NPO status, will place on sublingual oxycodone prn and resume his home tizanidine. Qualifiers: Back pain location: low back pain Back pain laterality: unspecified Sciatica presence: without sciatica Qualified Code(s): M54.5 - Low back pain; G89.29 - Other chronic pain (7) Diabetes mellitus type 2 in obese Current Visit: Yes Status: Chronic Assessment and plan: Place metformin & glimepiride on hold. Fingerstick checks and insulin sliding scale for now. (8) ROSALIO (acute kidney injury) Current Visit: Yes Status: Acute Assessment and plan: The patient had a serum creatinine of 0.87 two weeks ago therefore this is consistent with ROSALIO likely due to volume loss. Will give fluids and recheck value. (9) Tobacco dependence Current Visit: Yes Status: Chronic Assessment and plan: Counseled on the need to quit and expressed understanding. Educated on the resources available given his difficulties quitting. (10) Obesity (BMI 30-39.9) Current Visit: Yes Status: Chronic Assessment and plan: Nutrition counseling would be necessary. - Time Spent With Patient Total time spent is greater than 50% in coordination of care (as documented) at patient's floor/unit and/or counseling patient: Greater than 35 minutes
[2018-02-09] MEDS ORDERED: OXYCODONE Oral CONC 10 MG/0.5 ML ORAL.SYG SL PRN (04:08)
[2018-02-09] MEDS ORDERED: Dextrose Gel 15 GM/37.5 ML TUBE PO PRN ×2 (04:20)
[2018-02-09] MEDS ORDERED: *HR* Dextrose 50 % in Water (Syg) 50 ML SYRINGE IVP PRN (04:20)
[2018-02-09] MEDS: Ringers Solution, Lactated 1,000 ML IVC SCH ×2 (04:35→18:11)
[2018-02-09] MEDS: OXYCODONE Oral CONC 10 MG/0.5 ML ORAL.SYG SL SCH ×5 (05:57→20:18)
[2018-02-09] MEDS: Insulin LISPRO 300 UNITS/3 ML VIAL SQ SCH ×2 (06:08→11:48)
[2018-02-09 06:41] LABS: Hematocrit 29.9 % (37.5-50.1); Hemoglobin 9.4 g/dL (12.9-16.9)
[2018-02-09 06:58] LABS: BUN/Creatinine Ratio 15 (6-26); Blood Urea Nitrogen 14 mg/dL (8-23); Calcium 8.7 mg/dL (8.6-10.3); Carbon Dioxide 20 mEq/L (23-29); Chloride 108 mEq/L (98-107); Glucose 127 mg/dL (70-105); Osmolality,Calculated 282 (280-300); Potassium 3.7 mEq/L (3.5-5.1); Sodium 135 mEq/L (136-145); eGFR For Non-African Americans > 60 (> 60)
[2018-02-09] MEDS: diazePAM 5 MG TABLET PO SCH ×2 (08:20→20:18)
[2018-02-09] MEDS ORDERED: Pantoprazole 40 MG VIAL IVP SCH (09:00)
[2018-02-09] MEDS: Tiotropium 18 MCG inhalation IH SCH (10:52)
[2018-02-09] MEDS: Pantoprazole 40 MG in 0.9 % Sodium Chloride Mini Bag 100 ML IVC SCH ×2 (10:52→20:22)
--- NOTE | 2018-02-09 11:51 | Electrocardiograph Report ---
[address] [address] Test Date: 2018-02-08 Pat Name: Jackson Burch Department: 103 Room: 2N01 Gender: M [employer] Officer: : 1955 Requested By: Ori Weston Order Number: [id number] Reading MD: Edita Cardenas Measurements Intervals [place] Rate: 68 P: 46 [place]: 144 QRS: -34 QRSD: 142 T: 44 QT: 408 QTc: 426 Interpretive Statements SINUS RHYTHM LEFT AXIS DEVIATION [QRS AXIS < -30] RIGHT BUNDLE BRANCH BLOCK [120+ ms QRS DURATION, UPRIGHT V1, 40+ ms S IN I/aVL/V4/V5/V6] Electronically Signed On 02-09-2018 11:49:09 EDT by Edita Cardenas
[2018-02-09] MEDS ORDERED: Propofol 500 MG/50 ML INFUS..BTL ONE (12:54)
--- NOTE | 2018-02-09 13:38 | Anesthesia Evaluation PreOp ---
Date of Encounter: 02/09/18 Time of Encounter: 13:36 - Past History Planned Operation: EGD Cardiac History: Angina (Vasospastic), HTN, Hyperlipidemia, Cardiac Stent (ADELA to PDA 06/2017. Last LHC 11/2017 with 20% mid LAD, 30% diagonal 1, 20% mid circumflex, ramus angiographically free of disease, 30% mid RCA, PDA with patent stent. Coronay vasospasm noted during LHC, and was given IC nitro.) Pulmonary History: Smoker Other Medical History: Bleeding (Upper GI bleed, Anemia), Diabetes Type II, Other (Morbid obesity, BMI 40) Alcohol Use: none Drug use: none Medications and Allergies Glimepiride [Amaryl] 2 mg PO DAILY 07/14/17 [History] Oxycodone HCl 15 mg PO 5XD 07/14/17 [History] Sertraline [Zoloft] 200 mg PO DAILY 07/14/17 [History] Tizanidine HCl 4 mg PO TID PRN 07/14/17 [History] diazePAM [Valium] 5 mg PO BID 07/14/17 [History] DULoxetine [Cymbalta] 20 mg PO BID 12/10/17 [History] Lisinopril [Zestril] 2.5 mg PO DAILY #30 tablet 12/11/17 [Rx] Metoprolol [Lopressor] 12.5 mg PO BID #60 tablet 12/11/17 [Rx] Albuterol Sulfate [Albuterol Inhaler] 2 puff IH Q6H PRN 01/08/18 [History] Metformin HCl 1,000 mg PO BID 01/08/18 [History] Tiotropium [place] [Spiriva Respimat] 2 puff IH DAILY 01/08/18 [History] Diltiazem CD (24hr) [Cardizem CD] 120 mg PO DAILY 30 Days #30 cap.er.24h [Rx] Isosorbide MONOnitrate (24 HR) [Imdur] 30 mg PO DAILY 30 Days #30 tab.er.24h [Rx] Ondansetron HCl [Zofran] 4 mg PO Q8HR PRN 01/23/18 [History] Aspirin Enteric Coated [Aspirin EC] 81 mg PO DAILY #30 tablet. 01/26/18 [Rx] Omeprazole [PriLOSEC] 40 mg PO BIDAC #60 capsule. 01/26/18 [Rx] Nitroglycerin [Nitrostat] 0.4 mg SL Q5M PRN 02/09/18 [History] 3 Allergy/AdvReac Type Severity Reaction Status Date / Time No Known Allergies Allergy Verified 02/08/18 23:40 - Meds/Allergy Pre-op Review Medications Reviewed: Yes Allergies Reviewed: Yes Beta Blockers on Current Med List: Yes Anesthesia Results - Labs 02/09/18 06:18 02/09/18 06:18 - Imaging EKG: report reviewed (SINUS RHYTHM LEFT AXIS DEVIATION RIGHT BUNDLE BRANCH BLOCK ) Anesthesia Exam Vital Signs/O2 Sat/Glucose, Most Recent Temp Pulse Resp BP Pulse Ox 97.8 F 56 16 130/68 96 02/09/18 13:04 02/09/18 13:04 02/09/18 13:04 02/09/18 13:04 02/09/18 13:04 Blood Glucose* 91 Height: 1.85 m Weight: 137 kg NPO (# of Hours): 8 - HEENT Mallampati: II Teeth: Edentulous Oral Opening: Greater than 3 - SADDLE TREE STITCHER LOC: Oriented - Cardiac Rhythm: Regular - Pulmonary Breath Sounds: bilateral Clear Anesthesia Assess/Plan ASA Score: 4 Modified [place] Scale for Level of Consciousness: Cooperative, oriented, and tranquil Anesthetic Plan: MAC Monitoring Plan: Standard Monitors Recovery Plan: Other
--- NOTE | 2018-02-09 15:04 | Gastroenterology Consult Note ---
<JohnsonWill Serra - Last Filed: 02/09/18 14:59> Date of Encounter: 02/09/18 Time of Encounter: 11:10 - Assessment and plan (1) Epigastric pain Current Visit: Yes Status: Acute Assessment and plan: Plan for EGD today. Keep NPO for scope. Continue PPI. (2) Upper GI bleed Current Visit: Yes Status: Acute Assessment and plan: Pt with 2 episodes of coffee-ground emesis. Plan for EGD today to r/o esophagitis, gastritis, duodenitis, PUD, MW tear, or AVM. Keep NPO for scope. Continue PPI drip. - Time Spent With Patient Total time spent is greater than 50% in coordination of care (as documented) at patient's floor/unit and/or counseling patient: GI History of Present Illness - Data of Consult Patient: new to practice Consult date: 02/09/18 Requesting Physician: Abdiel Hernandez - Consult Narrative Reason for consult: GI Bleed History of present illness: Mr. Burch is a 62 year old male with PMHx of arthritis, CAD s/p PCI, DM, HLD, OK. He was admitted here 2 weeks ago for a new onset hematemesis that was severe enough to prompt intubation for airway protection and managed for hemorrhagic shock with blood loss requiring up to 4U pRBCs. EGD showed blood clot in the cardia. He presented today with 2 episodes of coffee-ground emesis and epigastric pain. Protonix gtt was started. Hgb on admission 9.6 and this AM Hgb 9.4. He denies any chest pain or shortness of breath. Procedures: EGD 01/23/2018 Dr. Rehman: Hematin found in cardia, Hpylori negative. Colonoscopy 07/16/2008 Dr. Carr: Inflamed benign squamous papilloma. NSAIDs: ASA Anticoagulation: None Past Med Surg Social Fam HX - Past Medical History Medical history: arthritis, coronary artery disease, diabetes, hyperlipidemia, kidney stones, myocardial infarction Additional medical history: knee replacement Psychiatric history: depression - Past Surgical History Surgical History: angioplasty/stent, cholecystectomy, knee replacement Additional surgical history: heart stent x1 (2018), left knee replacement - Social History Smoking Status: Current every day smoker Smokeless Tobacco Status: No Alcohol use: none Drug use: none - Family History Father Hx Family Cardiac Disorders: Yes Hx Family Cancer: Yes Hx Family Endocrine Disorder: Yes (kidney replacement) Sister Hx Family Endocrine Disorder: Yes (DM) - Gastrointestinal Gastrointestinal: Present: as per HPI - Constitutional Constitutional: as per HPI - EENT Eyes: as per HPI Ears: Present: as per HPI Nose, mouth and throat: Present: as per HPI - Cardiovascular Cardiovascular ROS: Present: as per HPI - Respiratory Respiratory IM: Present: as per HPI - Genitourinary Genitourinary: Absent: change in color, Urinary frequency - Neurological ROS Neurological GI: Present: as per HPI - Hematologic/Lymphatic Hematologic/Lymphatic pediatric: Present: as per HPI - Musculoskeletal Musculoskeletal ROS GI: Present: as per HPI - Integumentary Integumentary GI: Present: as per HPI - Psychiatric ROS Psychiatric GI: Present: as per HPI - Endocrine Endocrine IM: Present: as per HPI - Constitutional Vitals: Temp Pulse Resp BP Pulse Ox 97.8 F 56 16 130/68 96 02/09/18 13:04 02/09/18 13:04 02/09/18 13:04 02/09/18 13:04 02/09/18 13:04 General appearance: Present: cooperative, A&O X 3, no acute distress, answers questions appropriately - Head Head exam: Present: atraumatic, normocephalic - Eye Eye exam: Present: normal appearance, sclera anicteric - ENT ENT exam: Present: mucous membranes dry - Neck Neck exam general surgery: Present: normal inspection, trachea midline - Respiratory Respiratory exam: Present: CTAB. Absent: rales, rhonchi - Cardiovascular Cardiovascular exam: Present: RRR, +S1, +S2 - GI/Abdominal GI/Abdominal exam: Present: normal bowel sounds, soft, tenderness (epigastric), no peritoneal signs. Absent: distended, firm, guarding - Rectal Rectal exam: Present: deferred - Extremities Exam Extremities exam: Present: warm - Neurological Exam Neurological exam: Present: no focal deficits - Psychiatric Psychiatric exam: Present: normal affect, normal mood - Skin Skin exam: Present: dry, intact, normal color, warm Results - Labs CBC & Chem 7: 02/09/18 06:18 02/09/18 06:18 Labs: Last Result Calcium 8.7 mg/dL (8.6-10.3) 02/09/18 06:18 Troponin I 6.89 ng/mL (< 0.04) H* 02/08/18 00:37 Entire Visit Hgb 9.4 g/dL (12.9-16.9) L 02/09/18 06:18 Hct 29.9 % (37.5-50.1) L 02/09/18 06:18 PT 11.8 Seconds (9.4-12.1) 02/08/18 00:37 - ABG ABG results: PT/INR, D-dimer PT 11.8 Seconds (9.4-12.1) 02/08/18 00:37 Consult Discharge Plan - Plan Referrals: Izabela Sam CNP [Primary Care Provider] - 02/18/18 9:00 am Edita Cardenas DO [Partnered Physician] - (OFFICE WILL CALL PATIENT AT HOME WITH FOLLOW UP APPOINTMENT) Huyen Rutherford MD [Partnered Physician] - (SENT WEB REQUEST ON 02-09-18 @ [id number]) <Huyen Rutherford - Last Filed: 02/09/18 17:44> Date of Encounter: 02/09/18 Time of Encounter: 13:00 - Time Spent With Patient Total time spent is greater than 50% in coordination of care (as documented) at patient's floor/unit and/or counseling patient: GI History of Present Illness - Data of Consult Requesting Physician: Abdiel Hernandez - Consult Narrative History of present illness: Mr. Burch is a 62 year old male - Constitutional Vitals: Temp Pulse Resp BP Pulse Ox 97.8 F 60 18 118/69 96 02/09/18 16:25 02/09/18 16:25 02/09/18 16:25 02/09/18 16:25 02/09/18 16:25 Results - Labs CBC & Chem 7: 02/09/18 06:18 02/09/18 06:18 Labs: Last Result Calcium 8.7 mg/dL (8.6-10.3) 02/09/18 06:18 Troponin I 6.89 ng/mL (< 0.04) H* 02/08/18 00:37 Entire Visit Hgb 9.4 g/dL (12.9-16.9) L 02/09/18 06:18 Hct 29.9 % (37.5-50.1) L 02/09/18 06:18 PT 11.8 Seconds (9.4-12.1) 02/08/18 00:37 - ABG ABG results: PT/INR, D-dimer PT 11.8 Seconds (9.4-12.1) 02/08/18 00:37 - Attending Attestation I have personally performed a face to face evaluation on this patient. I have reviewed and agree with the care plan. History and Exam by me shows: Patient seen complaining of epigastric pain and also coffee-ground emesis. Patient had coffee-ground emesis last and Egd By Dr Rehman showed gastritis. Patient now with the recurrence of his coffee-ground emesis. Rule out gastric/ esophageal causes for his recurrent symptoms. Recommendation: EGD today. Follow H&H.
--- NOTE | 2018-02-09 15:35 | Event Note ---
Date of Encounter: 02/09/18 Time of Encounter: 11:00 Patient seen and evaluated by nocturnalist earlier this morning and also by myself. Patient is a 62-year-old male with recurrent upper GI bleeds who presents to the ER due to hematemesis. GI consulted with recommendations for EGD afternoon which showed normal esophagus with gastritis and normal duodenum. Will continue IV PPI and start patient on a full liquid diet. Will monitor serial H&H overnight.
[2018-02-09] MEDS: Pantoprazole 40 MG VIAL IVP SCH (17:46)
[2018-02-09] MEDS ORDERED: Insulin LISPRO 300 UNITS/3 ML VIAL SQ SCH (21:00)
[2018-02-10] MEDS: OXYCODONE Oral CONC 10 MG/0.5 ML ORAL.SYG SL SCH ×4 (00:12→12:02)
[2018-02-10] MEDS: Pantoprazole 40 MG in 0.9 % Sodium Chloride Mini Bag 100 ML IVC SCH ×3 (00:12→08:11)
[2018-02-10] MEDS: Ringers Solution, Lactated 1,000 ML IVC SCH ×2 (01:58→08:11)
[2018-02-10] MEDS: Pantoprazole 40 MG VIAL IVP SCH (05:30)
[2018-02-10] MEDS: Tiotropium 18 MCG inhalation IH SCH (08:03)
[2018-02-10] MEDS: Insulin LISPRO 300 UNITS/3 ML VIAL SQ SCH ×2 (08:10→12:02)
[2018-02-10] MEDS: diazePAM 5 MG TABLET PO SCH (08:12)
[2018-02-10] MEDS ORDERED: Diltiazem CD (24hr) 120 MG CAPSULE PO SCH (09:00)
[2018-02-10] MEDS ORDERED: Isosorbide MONOnitrate (24 HR) 30 MG TAB.ER.24H PO SCH (09:00)
[2018-02-10 09:10] LABS: Basophils % 0.3 %; Eosinophils # 0.1 K/mcL (0.0-0.6); Eosinophils % 1.3 %; Hemoglobin 9.9 g/dL (12.9-16.9); Immature Granulocytes % 0.4 % (0-4); Lymphocytes # 2.1 K/mcL (0.6-4.6); Lymphocytes % 19.1 %; Mean Corpuscular HGB Conc 30.9 g/dL (31.6-35.5); Mean Corpuscular Volume 90.7 fL (83.0-100.0); Mean Platelet Volume 9.3 fL (9.4-12.4); Monocytes # 0.9 K/mcL (0.0-1.3); Monocytes % 8.2 %; Neutrophils # 7.7 K/mcL (1.6-8.9); Platelet Count 311 K/mcL (140-400); Red Blood Count 3.53 M/mcL (4.19-5.50); Red Cell Distribution Width 15.3 % (11.5-14.5); Segmented Neutrophils % 70.7 %
[2018-02-10 11:34] VITALS: BP 114/76
--- NOTE | 2018-02-10 14:21 | Discharge Summary ---
- NOTES TO OUTPATIENT PROVIDER Notes to Outpatient Provider: Follow up with GI for further evaluation and recommendations Orders not resulted at time of discharge: Pending orders 02/09/18 14:03 Surgical Pathology [PTH] Routine Date of Encounter: 02/10/18 Time of Encounter: 11:00 - Discharge Diagnosis (1) Diabetes mellitus type 2 in obese Priority: Secondary Status: Chronic (2) Leukocytosis Priority: Secondary Status: Acute Qualifiers: Leukocytosis type: unspecified Qualified Code(s): D72.829 - Elevated white blood cell count, unspecified (3) CAD (coronary artery disease) Priority: Secondary Status: Chronic Qualifiers: Coronary Disease-Associated Artery/Lesion type: [place] artery [place] vs. transplanted heart: [place] heart Associated angina: without angina Qualified Code(s): I25.10 - Atherosclerotic heart disease of [place] coronary artery without angina pectoris (4) ROSLAIO (acute kidney injury) Priority: Secondary Status: Acute (5) Upper GI bleed Priority: Primary Status: Acute (6) Elevated troponin Priority: Primary Status: Chronic (7) Chronic back pain Priority: Secondary Status: Chronic Qualifiers: Back pain location: low back pain Back pain laterality: unspecified Sciatica presence: without sciatica Qualified Code(s): M54.5 - Low back pain; G89.29 - Other chronic pain (8) Tobacco dependence Priority: Secondary Status: Chronic (9) Obesity (BMI 30-39.9) Priority: Secondary Status: Chronic (10) Acute blood loss anemia Priority: Primary Status: Acute Hospital course: Patient is a 62-year-old male past medical history significant for coronary artery disease status post PCI, 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 Patient reported of a two-week history of hematemesis decided to come to the ER for evaluation. The patients hospital stay GI was consulted and EGD was done which showed gastritis. Patient will be discharged to follow-up with GI for further evaluation and recommendation. - Time Spent with Patient Total time spent providing and/or coordinating discharge services: Less than 30 minutes - Discharge Medications Home Medications: Glimepiride [Amaryl] 2 mg PO DAILY 07/14/17 [History] Oxycodone HCl 15 mg PO 5XD 07/14/17 [History] Sertraline [Zoloft] 200 mg PO DAILY 07/14/17 [History] Tizanidine HCl 4 mg PO TID PRN 07/14/17 [History] diazePAM [Valium] 5 mg PO BID 07/14/17 [History] DULoxetine [Cymbalta] 20 mg PO BID 12/10/17 [History] Lisinopril [Zestril] 2.5 mg PO DAILY #30 tablet 12/11/17 [Rx] Metoprolol [Lopressor] 12.5 mg PO BID #60 tablet 12/11/17 [Rx] Albuterol Sulfate [Albuterol Inhaler] 2 puff IH Q6H PRN 01/08/18 [History] Metformin HCl 1,000 mg PO BID 01/08/18 [History] Tiotropium [place] [Spiriva Respimat] 2 puff IH DAILY 01/08/18 [History] Diltiazem CD (24hr) [Cardizem CD] 120 mg PO DAILY 30 Days #30 cap.er.24h [Rx] Isosorbide MONOnitrate (24 HR) [Imdur] 30 mg PO DAILY 30 Days #30 tab.er.24h [Rx] Ondansetron HCl [Zofran] 4 mg PO Q8HR PRN 01/23/18 [History] Aspirin Enteric Coated [Aspirin EC] 81 mg PO DAILY #30 tablet. 01/26/18 [Rx] Omeprazole [PriLOSEC] 40 mg PO BIDAC #60 capsule. 01/26/18 [Rx] Nitroglycerin [Nitrostat] 0.4 mg SL Q5M PRN 02/09/18 [History] Allergies/Adverse Reactions: 3 Allergy/AdvReac Type Severity Reaction Status Date / Time No Known Allergies Allergy Verified 02/08/18 23:40 Date of admission: 02/09/18 02:49 Primary care physician: Izabela Sam CNP - Constitutional Vitals: Temp Pulse Resp BP Pulse Ox 98.0 F 63 18 114/76 93 02/10/18 11:31 02/10/18 11:31 02/10/18 11:31 02/10/18 11:31 02/10/18 11:31 General appearance: Present: no acute distress - Cardiovascular Cardiovascular exam: Present: RRR, +S1, +S2. Absent: diastolic murmur, gallop, rubs, systolic murmur - Patient Status Disposition: Home, Self-Care Condition: Fair - Discharge Instructions Follow Up With: Izabela Sam CNP [Primary Care Provider] - 02/18/18 9:00 am Edita Cardenas DO [Partnered Physician] - (OFFICE WILL CALL PATIENT AT HOME WITH FOLLOW UP APPOINTMENT) Huyen Rutherford MD [Partnered Physician] - (SENT WEB REQUEST ON 02-09-18 @ [id number])
== END 2018-02-10 15:37 | disposition home or self-care (01) ==
LOC: 2NNU 23:34 → EMEROOARM 23:34 → SUATTDRO 02-09 02:49 → 2NNU 02-09 03:32
PROVIDERS: ADMIT Family Medicine; ATTEND Hospitalist

== ENCOUNTER 2020-11-20 20:34 | Observation (INO) ==
[2020-11-20] MEDS ORDERED: 0.9 % Sodium Chloride 1,000 ML IVC ONE (21:42)
[2020-11-20] MEDS ORDERED: *HR* OxyCODONE/APAP 5/325 TABLET PO ONE (22:02)
[2020-11-20 22:43] LABS: Basophils # 0.1 K/mcL (0.0-0.2); Basophils % 0.4 %; Eosinophils # 0.1 K/mcL (0.0-0.6); Eosinophils % 0.4 %; Hematocrit 50.8 % (37.5-50.1); Hemoglobin 16.2 g/dL (12.9-16.9); Immature Granulocytes % 0.4 % (0-4); Lymphocytes # 2.9 K/mcL (0.6-4.6); Lymphocytes % 18.3 %; Mean Corpuscular HGB Conc 31.9 g/dL (31.6-35.5); Mean Corpuscular Hemoglobin 27.1 pg (28.0-33.3); Mean Corpuscular Volume 85.1 fL (83.0-100.0); Mean Platelet Volume 9.5 fL (9.4-12.4); Monocytes # 1.1 K/mcL (0.0-1.3); Monocytes % 6.8 %; Neutrophils # 11.8 K/mcL (1.6-8.9); Platelet Count 295 K/mcL (140-400); Red Blood Count 5.97 M/mcL (4.19-5.50); Red Cell Distribution Width 14.4 % (11.5-14.5); Segmented Neutrophils % 73.7 %
[2020-11-20 22:52] LABS: Prothrombin Time 12.1 Seconds (9.4-12.1)
[2020-11-20 23:17] LABS: Alanine Aminotransferase 21 Units/L (7-52); Albumin 3.9 g/dL (3.5-5.7); Alkaline Phosphatase 81 Units/L (34-104); Aspartate Amino Transferase 22 Units/L (13-39); BUN/Creatinine Ratio 20 (6-26); Bilirubin,Total 0.4 mg/dL (0.3-1.0); Blood Urea Nitrogen 20 mg/dL (8-23); Carbon Dioxide 23 mEq/L (23-29); Chloride 101 mEq/L (98-107); Globulin 3.8 g/dL (2.4-3.5); Glucose 150 mg/dL (70-105); Osmolality,Calculated 281 (280-300); Potassium 4.3 mEq/L (3.5-5.1); Sodium 133 mEq/L (136-145); Total Protein 7.7 g/dL (6.4-8.9); Troponin I 5.02 ng/mL (< 0.04); eGFR For African Americans > 60 (> 60); eGFR For Non-African Americans > 60 (> 60)
[2020-11-20] MEDS ORDERED: *HR* Heparin 5,000 UNIT/ML VIAL IVP ONE (23:23)
[2020-11-20] MEDS ORDERED: *HR* Heparin 5,000 UNIT/ML VIAL IVP PRN ×2 (23:23)
[2020-11-20] MEDS ORDERED: Aspirin 325 MG TABLET PO ONE (23:24)
[2020-11-20 23:38] LABS: Bacteria,Urine Few per hpf (None-Few); Bilirubin,Urine Negative (Negative); Blood,Urine Negative (Negative); Clarity,Urine Clear (Clear); Color,Urine Light-Yellow (Yellow); Glucose,Urine (UA) 30 mg/dL (Normal); Ketones,Urine Negative (Negative); Leukocyte Esterase,Urine Moderate (Negative); Mucus,Urine Few per lpf (None-Few); Nitrite,Urine Positive (Negative); Protein,Urine Trace mg/dL (Neg-Trace); RBC,Urine 0-3 per hpf (0-3); Specific Gravity,Urine 1.026 (1.010-1.025); Squamous Epithelial Cell,Urine Few per hpf (None-Few); Urobilinogen,Urine Normal (Normal); WBC,Urine 15-30 per hpf (0-3)
[2020-11-20] MEDS: Heparin 25,000UNIT/250ML 1/2NS 25,000 UNIT/250 ML IV.SOLN IVC SCH (23:38)
[2020-11-20] MEDS ORDERED: cefTRIAXone 1,000 MG in 0.9 % Sodium Chloride Mini Bag 100 ML IVPB ONE (23:53)
[2020-11-21] MEDS ORDERED: Morphine Sulfate 2 MG/ML SYRINGE IVP ONE (00:05)
[2020-11-21] MEDS ORDERED: Melatonin 3 MG TABLET PO PRN (01:33)
[2020-11-21] MEDS ORDERED: Ondansetron 4 MG/2 ML VIAL IVP PRN (01:33)
[2020-11-21] MEDS ORDERED: Acetaminophen 325 MG TABLET PO PRN (01:33)
[2020-11-21] MEDS ORDERED: Naloxone 0.4 MG/ML INJ IVP PRN (01:33)
[2020-11-21] MEDS: *HR* OxyCODONE Immed Rel 15 MG TABLET PO SCH ×6 (03:43→23:38)
[2020-11-21 06:36] LABS: Basophils # 0.1 K/mcL (0.0-0.2); Basophils % 0.4 %; Eosinophils # 0.1 K/mcL (0.0-0.6); Eosinophils % 0.9 %; Hematocrit 47.2 % (37.5-50.1); Hemoglobin 14.9 g/dL (12.9-16.9); Immature Granulocytes % 0.4 % (0-4); Lymphocytes # 4.1 K/mcL (0.6-4.6); Lymphocytes % 25.5 %; Mean Corpuscular HGB Conc 31.6 g/dL (31.6-35.5); Mean Corpuscular Hemoglobin 27.1 pg (28.0-33.3); Mean Corpuscular Volume 85.8 fL (83.0-100.0); Mean Platelet Volume 9.5 fL (9.4-12.4); Monocytes # 1.1 K/mcL (0.0-1.3); Monocytes % 7.1 %; Neutrophils # 10.5 K/mcL (1.6-8.9); Platelet Count 266 K/mcL (140-400); Red Cell Distribution Width 14.4 % (11.5-14.5); Segmented Neutrophils % 65.7 %; White Blood Count 15.9 K/mcL (4.3-11.1)
[2020-11-21] MEDS ORDERED: Dextrose Gel 15 GM/37.5 ML TUBE PO PRN ×2 (06:37)
[2020-11-21] MEDS ORDERED: D5% in Water 1,000 ML IVC PRN (06:37)
[2020-11-21] MEDS ORDERED: *HR* Dextrose 50 % in Water (Vial) 50 ML VIAL IVP PRN (06:37)
[2020-11-21 06:59] LABS: Alanine Aminotransferase 21 Units/L (7-52); Albumin 3.6 g/dL (3.5-5.7); Alkaline Phosphatase 83 Units/L (34-104); Aspartate Amino Transferase 25 Units/L (13-39); BUN/Creatinine Ratio 21 (6-26); Bilirubin,Total 0.5 mg/dL (0.3-1.0); Blood Urea Nitrogen 19 mg/dL (8-23); Carbon Dioxide 21 mEq/L (23-29); Chloride 104 mEq/L (98-107); Globulin 3.5 g/dL (2.4-3.5); Glucose 178 mg/dL (70-105); Magnesium 1.9 mg/dL (1.6-2.6); Osmolality,Calculated 283 (280-300); Phosphorous 2.4 mg/dL (2.7-4.5); Sodium 133 mEq/L (136-145); Total Protein 7.1 g/dL (6.4-8.9); Troponin I 4.54 ng/mL (< 0.04); eGFR For African Americans > 60 (> 60); eGFR For Non-African Americans > 60 (> 60)
[2020-11-21] MEDS ORDERED: Perflutren Lipid Microsphere 1.3 ML in 0.9 % Sodium Chloride 8.7 ML IVP PRN (08:43)
[2020-11-21] MEDS: DilTIAZem CD (24hr) 120 MG CAP.ER.24H PO SCH (08:58)
[2020-11-21] MEDS: lisinopriL 5 MG TABLET PO SCH (08:58)
[2020-11-21] MEDS: Isosorbide MONOnitrate (24 HR) 60 MG TAB.ER.24H PO SCH (08:58)
[2020-11-21] MEDS: Aspirin Enteric Coated 81 MG Tablet PO SCH (08:58)
[2020-11-21] MEDS ORDERED: tiZANidine 4 MG TABLET PO PRN (10:18)
[2020-11-21] MEDS ORDERED: NON-FORMULARY MEDICATION 1 EACH EACH (Ezetimibe [Zetia] 10 MG Tablet) PO SCH (12:00)
[2020-11-21] MEDS: Insulin LISPRO 300 UNITS/3 ML VIAL SUBQ SCH ×2 (12:45→16:45)
[2020-11-21] MEDS: Heparin 25,000UNIT/250ML 1/2NS 25,000 UNIT/250 ML IV.SOLN IVC SCH (20:07)
[2020-11-21] MEDS ORDERED: Insulin LISPRO 300 UNITS/3 ML VIAL SUBQ SCH (21:00)
[2020-11-21] MEDS ORDERED: cefTRIAXone 1,000 MG in Water for inj. (sterile) 10 ML IVP SCH (23:00)
[2020-11-22 02:39] LABS: Hemoglobin 14.7 g/dL (12.9-16.9); Mean Corpuscular HGB Conc 30.6 g/dL (31.6-35.5); Mean Corpuscular Hemoglobin 27.2 pg (28.0-33.3); Mean Corpuscular Volume 88.7 fL (83.0-100.0); Mean Platelet Volume 9.6 fL (9.4-12.4); Platelet Count 272 K/mcL (140-400); Red Blood Count 5.41 M/mcL (4.19-5.50); Red Cell Distribution Width 14.6 % (11.5-14.5); White Blood Count 14.1 K/mcL (4.3-11.1)
[2020-11-22 02:56] LABS: Blood Urea Nitrogen 21 mg/dL (8-23); Calcium 9.3 mg/dL (8.6-10.3); Carbon Dioxide 22 mEq/L (23-29); Chloride 103 mEq/L (98-107); Glucose 194 mg/dL (70-105); Osmolality,Calculated 282 (280-300); Potassium 4.5 mEq/L (3.5-5.1); Sodium 132 mEq/L (136-145)
[2020-11-22 03:36] LABS: BUN/Creatinine Ratio 19 (6-26); eGFR For African Americans > 60 (> 60); eGFR For Non-African Americans > 60 (> 60)
[2020-11-22 07:08] VITALS: BP 110/71
[2020-11-22] MEDS ORDERED: Insulin LISPRO 300 UNITS/3 ML VIAL SUBQ SCH (07:30)
[2020-11-22] MEDS: lisinopriL 5 MG TABLET PO SCH (08:17)
[2020-11-22] MEDS: Aspirin Enteric Coated 81 MG Tablet PO SCH (08:18)
[2020-11-22] MEDS: DilTIAZem CD (24hr) 120 MG CAP.ER.24H PO SCH (08:18)
[2020-11-22] MEDS: Isosorbide MONOnitrate (24 HR) 60 MG TAB.ER.24H PO SCH (08:18)
[2020-11-22] MEDS: *HR* OxyCODONE Immed Rel 15 MG TABLET PO SCH (08:18)
== END 2020-11-22 10:45 | disposition home or self-care (01) ==
LOC: EMEROOARM 20:34 → 2ANU 20:34
PROVIDERS: ADMIT Internal Medicine; ATTEND Internal Medicine

== ENCOUNTER 2021-02-04 20:35 | Observation (INO) ==
[2021-02-04 21:19] LABS: Basophils # 0.1 K/mcL (0.0-0.2); Basophils % 0.4 %; Eosinophils # 0.1 K/mcL (0.0-0.6); Eosinophils % 0.5 %; Hematocrit 47.7 % (37.5-50.1); Hemoglobin 15.5 g/dL (12.9-16.9); Immature Granulocytes % 0.4 % (0-4); Lymphocytes # 2.4 K/mcL (0.6-4.6); Lymphocytes % 17.7 %; Mean Corpuscular HGB Conc 32.5 g/dL (31.6-35.5); Mean Corpuscular Hemoglobin 27.5 pg (28.0-33.3); Mean Corpuscular Volume 84.7 fL (83.0-100.0); Mean Platelet Volume 9.8 fL (9.4-12.4); Monocytes % 7.2 %; Neutrophils # 10.1 K/mcL (1.6-8.9); Platelet Count 304 K/mcL (140-400); Red Blood Count 5.63 M/mcL (4.19-5.50); Red Cell Distribution Width 14.1 % (11.5-14.5); Segmented Neutrophils % 73.8 %; White Blood Count 13.6 K/mcL (4.3-11.1)
[2021-02-04 21:37] LABS: BUN/Creatinine Ratio 16 (6-26); Blood Urea Nitrogen 15 mg/dL (8-23); Calcium 9.4 mg/dL (8.6-10.3); Carbon Dioxide 22 mEq/L (23-29); Chloride 103 mEq/L (98-107); Glucose 143 mg/dL (70-105); Osmolality,Calculated 281 (280-300); Potassium 3.9 mEq/L (3.5-5.1); Sodium 134 mEq/L (136-145); eGFR For African Americans > 60 (> 60); eGFR For Non-African Americans > 60 (> 60)
[2021-02-04] MEDS ORDERED: Morphine Sulfate 2 MG/ML SYRINGE IVP STA (21:51)
[2021-02-04 21:54] LABS: Troponin I 3.96 ng/mL (< 0.04)
[2021-02-04] MEDS ORDERED: Metoclopramide 10 MG/2 ML VIAL IVP ONE (22:34)
[2021-02-04] MEDS: Nitroglycerin 0.4 MG TAB.SUBL SL PRN ×2 (22:56→23:01)
[2021-02-04] MEDS ORDERED: Isovue-370 500 ML BOTTLE IVP ONE (23:15)
[2021-02-05] MEDS ORDERED: *HR* HYDROmorphone (PF) 1 MG/ML SYRINGE IVP STA (00:38)
[2021-02-05] MEDS ORDERED: Aspirin 325 MG TABLET PO ONE (02:25)
[2021-02-05] MEDS ORDERED: Ondansetron ODT 4 MG TAB.RAPDIS SL PRN (03:54)
[2021-02-05] MEDS ORDERED: Acetaminophen 325 MG TABLET PO PRN (03:54)
[2021-02-05] MEDS ORDERED: Naloxone 0.4 MG/ML INJ IVP PRN (03:54)
[2021-02-05] MEDS: Morphine Sulfate 2 MG/ML SYRINGE IVP PRN ×2 (05:07→10:12)
[2021-02-05] MEDS ORDERED: *HR* Dextrose 50 % in Water (Vial) 50 ML VIAL IVP PRN (05:38)
[2021-02-05] MEDS ORDERED: Dextrose Gel 15 GM/37.5 ML TUBE PO PRN ×2 (05:38)
[2021-02-05] MEDS ORDERED: D5% in Water 1,000 ML IVC PRN (05:38)
[2021-02-05 05:52] LABS: Hematocrit 46.3 % (37.5-50.1); Hemoglobin 14.7 g/dL (12.9-16.9); Mean Corpuscular HGB Conc 31.7 g/dL (31.6-35.5); Mean Corpuscular Hemoglobin 27.1 pg (28.0-33.3); Mean Corpuscular Volume 85.3 fL (83.0-100.0); Mean Platelet Volume 9.4 fL (9.4-12.4); Platelet Count 247 K/mcL (140-400); Red Blood Count 5.43 M/mcL (4.19-5.50); Red Cell Distribution Width 14.1 % (11.5-14.5); White Blood Count 14.4 K/mcL (4.3-11.1)
[2021-02-05] MEDS ORDERED: *HR* Heparin 5,000 UNIT/ML VIAL SQ SCH (06:00)
[2021-02-05 06:08] LABS: INR 1.1; Prothrombin Time 12.6 Seconds (9.4-12.1)
[2021-02-05 06:23] LABS: BUN/Creatinine Ratio 14 (6-26); Blood Urea Nitrogen 14 mg/dL (8-23); Calcium 9.2 mg/dL (8.6-10.3); Carbon Dioxide 22 mEq/L (23-29); Chloride 102 mEq/L (98-107); Chol/HDL Ratio 2.5 (0-4.9); Cholesterol 96 mg/dL (< 200); Glucose 122 mg/dL (70-105); HDL Cholesterol 38 mg/dL (40-59); LDL Cholesterol,Calculated 13 mg/dL (< 100); Osmolality,Calculated 282 (280-300); Phosphorous 2.9 mg/dL (2.7-4.5); Potassium 3.9 mEq/L (3.5-5.1); Sodium 135 mEq/L (136-145); Triglycerides 225 mg/dL (< 150); eGFR For African Americans > 60 (> 60); eGFR For Non-African Americans > 60 (> 60)
[2021-02-05] MEDS ORDERED: *HR* Heparin 5,000 UNIT/ML VIAL IVP PRN ×2 (08:32)
[2021-02-05] MEDS ORDERED: *HR* Heparin 5,000 UNIT/ML VIAL IVP ONE (08:32)
[2021-02-05] MEDS ORDERED: Isosorbide MONOnitrate (24 HR) 60 MG TAB.ER.24H PO SCH (09:00)
[2021-02-05] MEDS ORDERED: lisinopriL 5 MG TABLET PO SCH (09:00)
[2021-02-05] MEDS: Insulin LISPRO 300 UNITS/3 ML VIAL SUBQ SCH ×3 (09:20→17:44)
[2021-02-05] MEDS ORDERED: Perflutren Lipid Microsphere 1.3 ML in 0.9 % Sodium Chloride 8.7 ML IVP PRN (09:46)
[2021-02-05 10:02] LABS: Hematocrit 46.7 % (37.5-50.1); Hemoglobin 15.3 g/dL (12.9-16.9); Mean Corpuscular HGB Conc 32.8 g/dL (31.6-35.5); Mean Corpuscular Volume 85.4 fL (83.0-100.0); Mean Platelet Volume 9.7 fL (9.4-12.4); Platelet Count 271 K/mcL (140-400); Red Blood Count 5.47 M/mcL (4.19-5.50); Red Cell Distribution Width 14.1 % (11.5-14.5); White Blood Count 14.7 K/mcL (4.3-11.1)
[2021-02-05] MEDS: Heparin 25,000UNIT/250ML 1/2NS 25,000 UNIT/250 ML IV.SOLN IVC SCH (10:07)
[2021-02-05] MEDS: Metoprolol XL (24 HR) Succ 50 MG TAB.ER.24H PO SCH (10:08)
[2021-02-05] MEDS: lisinopriL 5 MG TABLET PO SCH (10:08)
[2021-02-05 10:10] LABS: Heparin anti-factor XA UFH < 0.04 IU/mL (0.30-0.70); INR 1.1; Prothrombin Time 12.4 Seconds (9.4-12.1)
[2021-02-05] MEDS: Ranolazine 500 MG TAB.ER.12H PO SCH ×2 (10:12→20:19)
[2021-02-05] MEDS ORDERED: *HR* OxyCODONE Immed Rel 15 MG TABLET PO PRN ×2 (10:29→12:12)
[2021-02-05] MEDS: *HR* OxyCODONE Immed Rel 15 MG TABLET PO PRN ×3 (11:19→21:00)
[2021-02-05] MEDS ORDERED: Insulin LISPRO 300 UNITS/3 ML VIAL SUBQ SCH (21:00)
[2021-02-06] MEDS: *HR* OxyCODONE Immed Rel 15 MG TABLET PO PRN ×3 (01:56→13:14)
[2021-02-06 05:53] LABS: Hematocrit 47.1 % (37.5-50.1); Hemoglobin 15.5 g/dL (12.9-16.9); Mean Corpuscular HGB Conc 32.9 g/dL (31.6-35.5); Mean Corpuscular Hemoglobin 27.9 pg (28.0-33.3); Mean Corpuscular Volume 84.9 fL (83.0-100.0); Mean Platelet Volume 9.7 fL (9.4-12.4); Platelet Count 247 K/mcL (140-400); Red Blood Count 5.55 M/mcL (4.19-5.50); Red Cell Distribution Width 14.1 % (11.5-14.5); White Blood Count 14.1 K/mcL (4.3-11.1)
[2021-02-06 06:38] LABS: BUN/Creatinine Ratio 16 (6-26); Blood Urea Nitrogen 16 mg/dL (8-23); Calcium 9.5 mg/dL (8.6-10.3); Carbon Dioxide 22 mEq/L (23-29); Chloride 102 mEq/L (98-107); Glucose 168 mg/dL (70-105); Osmolality,Calculated 281 (280-300); Sodium 133 mEq/L (136-145); eGFR For African Americans > 60 (> 60); eGFR For Non-African Americans > 60 (> 60)
[2021-02-06] MEDS: Heparin 25,000UNIT/250ML 1/2NS 25,000 UNIT/250 ML IV.SOLN IVC SCH (07:01)
[2021-02-06] MEDS ORDERED: Aspirin 81 MG TAB.CHEW PO SCH (09:00)
[2021-02-06] MEDS: Insulin LISPRO 300 UNITS/3 ML VIAL SUBQ SCH ×2 (09:35→12:01)
[2021-02-06] MEDS: Metoprolol XL (24 HR) Succ 50 MG TAB.ER.24H PO SCH (09:35)
[2021-02-06] MEDS: Ranolazine 500 MG TAB.ER.12H PO SCH (09:36)
[2021-02-06] MEDS: lisinopriL 5 MG TABLET PO SCH (09:36)
[2021-02-06 10:32] VITALS: BP 131/82; PULSE 79; TEMP 97.7; O2SAT 96
== END 2021-02-06 14:07 | disposition home or self-care (01) ==
LOC: EMEROOARM 20:35 → 3BNU 20:35
PROVIDERS: ADMIT Internal Medicine; ATTEND Internal Medicine